=== PATIENT | female | born 1940 | race Caucasian/White ===

== ENCOUNTER 2016-09-26 10:14 | Inpatient (IN) | payer OTHER, MEDICARE ==
[~2016-09-26] VITALS: Ht 157.5 cm; Wt 91.6 kg
[~2016-09-26 10:14] MED LIST: ACIPHEX 20MG20 MG PO; ALLEGRA180 MG; AMOX-CLAV 875-1 EACH PO; AMOXICILLIN500 M2 PO; ASACOL HD800 MG PO; ASACOL400 MG PO; ATIVAN0.5 MG PO; AUGMENTIN 500-1 EACH PO; AUGMENTIN 875-1 EACH PO; AUGMENTIN 875875 MG PO; BREO ELLIPTA 21 EACH INH; BREO ELLIPTA1 PO1; BUFFERIN LOW DO81 MG PO; CALCIUM + D 6001 TAB PO; CEFUROXIME AXE250 MG PO; CEPHALEXIN500 M3 PO; CVS OMEGA-3 KR1 EACH PO; CYMBALTA60 MG PO; DOXYCYCLINE HY100 M4 PO; ESTER C PO; EXCEDRIN EXTRA1 EACH PO; HYDROXYCHLOROQ200 M2 PO; KEFLEX250 M1 PO; KEFLEX500 M1 PO; LOPRESSOR50 MG PO; METOPROLOL TART50 M1 PO; NIACIN TIME RE500 MG PO; OMEGA 31000 MG; OXYCODONE5 MG PO; PENICILLIN V P500 M1 PO; PERCOCET 325 MG1 TA2 PO; PERCOCET 5-3251 EACH PO; PREDNISONE10 M2 PO; PROBIOTIC FORMU1 CA1 PO; REQUIP1 MG PO; REQUIP4 MG PO; ROPINIROLE PO; ROSE PO; SULFAMETHOXAZO1 EAC1 PO; SYMBICORT 160/41 PUF INH; TYLENOL #31 TAB PO; VITAB121000 PO; VITAMIN D1000 UNI1 PO; VITAMIN D3400 IU PO; ZYRTEC10 M3 PO; [UNRECOGNIZED DRUG - REMARK] PO
--- NOTE | 2016-09-26 10:16 | ED GENERAL ADULT ---
History of Present Illness General Chief Complaint: Dyspnea (COPD, CHF, Other) Stated Complaint: SENT BY GEORGINA FOR EVAL OF SOB R/O PE Source: patient, family Exam Limitations: no limitations Vital Signs & Intake/Output Vital Signs & Intake/Output Vital Signs Date Time Temp Pulse Resp B/P Pulse O2 O2 Flow FiO2 Ox Delivery Rate 09/26 2015 96.2 101 18 138/82 09/26 1617 101 18 121/69 94 Nasal 2.0L Cannula 09/26 1415 96.2 84 19 122/68 94 Room Air 09/26 1220 97.6 94 19 123/66 92 Nasal 2.0L Cannula 09/26 1101 98 Nasal 2.0L Cannula 09/26 1023 95.0 94 18 119/66 96 Nasal 2.0L Cannula Allergies Coded Allergies: Iodinated Contrast Media - Oral and (Iodinated Contrast Media - IV Dye) ( Intermediate, CAT SCAN DYE RED, FLUSHING, FEELING HOT, RASH 02/28/16) lactose (LACTOSE INTOLERANT 09/26/16) Reconcile Medications Albuterol Sulfate (Proair Hfa) 90 MCG HFA.AER.AD 2 PUF INH Q4-6 PRN PRN COPD (Reported) Ascorbic Acid/Calcium (Maura-C W/Kim Hips 500 MG-100 MG) 1 TAB TAB 500 MG PO DAILY VITAMIN (Reported) Aspirin (Children's Aspirin) 81 MG TAB 1 TAB PO DAILY HEART HEALTH (Reported) Aspirin/Acetaminophen/Caffeine (Excedrin Extra Strength Caplet) 250 MG-250 MG-65 MG TABLET 2 TAB PO PRN HEADACHE (Reported) Cetirizine HCl (Zyrtec) 10 MG TABLET 1 TAB PO DAILY ALLERGIES (Reported) Cholecalciferol (Vitamin D3) (Vitamin D) 1,000 UNIT CAPSULE 1 TAB PO AD SUPPLEMENT (Reported) Cyanocobalamin (Vitamin B-12) 1,000 MCG TAB 1 TAB PO DAILY SUPPLEMENT ( Reported) Cyclobenzaprine HCl (Unknown Strength) TABLET (Unknown Dose) UNKNOWN ( Reported) DULOXETINE HCL (Cymbalta) 60 MG ECC 1 CAP PO DAILY DEPRESSION (Reported) Ferrous Sulfate (IRON) 325 MG (65 MG IRON) TABLET 1 TAB PO DAILY SUPPLEMENT ( Reported) Folic Acid 1 MG TABLET 1 TAB PO DAILY SUPPLEMENT (Reported) Krill Oil/Red [place]-3/Dha/Epa (Cvs Red [place]-3 Krill Oil 300 Sfgl) (Unknown Strength) CAPSULE (Unknown Dose) PO DAILY SUPPLEMENT (Reported) Mesalamine (Asacol Hd) 800 MG TCP 2 TAB PO TID CROHNS (Reported) Methotrexate 2.5 MG TABLET 4 TAB PO QTHURS LUPUS (Reported) Metoprolol Tartrate 50 MG TABLET 1 TAB PO DAILY HTN (Reported) Niacin (Niacin Time Release) [address] 500 MG PO DAILY HEART (Reported) Prednisone 5 MG TABLET 7.5 MG PO DAILY SKIN-LUPUS (Reported) Rabeprazole Sodium (Aciphex 20MG) 20 MG TAB 20 MG PO BID ACID REFLUX ( Reported) Ropinirole HCl (Ropinirole ER) 4 MG TAB.ER.24H 1 TAB PO QPM RESTLESS LEGS ( Reported) Triage Nurses Notes Reviewed? yes Onset: Abrupt Duration: week(s): Timing: recent history HPI: 09/26/16 11:06 76-year-old female presents to the emergency department complaining of difficulty breathing. The patient was sent down by Dr. Mayer to rule out pulmonary embolism. According to her daughter, the patient has been having difficulty breathing for 3 weeks. 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 She is also on methotrexate. She denies any fever but does admit to cough. She does have an extensive smoking history. She has no orthopnea. The onset of the symptoms were abrupt, the duration has been 3 weeks, the severity is significant; as her symptoms required her to come to the emergency department for care. Past History Travel History Traveled to [place] past 21 day No Medical History Any Pertinent Medical History? 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 Other Medical Hx: Recurrent lower extremity cellulitis varicose veins History of MRSA: No History of VRE: No History of CDIFF: No Pneumonia Vaccine: 09/21/15 Influenza Vaccine: 06/27/16 Surgical History Surgical History: appendectomy, cataract removal, knee replacement (left), right nephrectomy left oophorectomy bilateral shoulder replacements Psychosocial History Who do you live with Patient/Self Services at Home None What is your primary language Azeri Family History Family History, If Any: FATHER FH: ALS (amyotrophic lateral sclerosis) MOTHER FH: heart failure BROTHER FH: hypertension Hx Contributory? No Review of Systems Review of Systems Constitutional: Denies: fever. EENTM: Denies: visual changes. Respiratory: Reports: short of breath. Cardiovascular: Denies: chest pain. GI: Denies: abdominal pain. Genitourinary: Reports: no symptoms. Musculoskeletal: Reports: no symptoms. Skin: Reports: see HPI. Neurological/Psychological: Denies: headache. Hematologic/Endocrine: Reports: no symptoms. Physical Exam Physical Exam General Appearance: alert, awake, anxious, mild distress Head: atraumatic, normal appearance Eyes: Bilateral: normal appearance, PERRL, EOMI. Ears, Nose, Throat: normal pharynx, normal ENT inspection Neck: normal inspection, supple, full range of motion Respiratory: chest non-tender, no respiratory distress, decreased breath sounds Cardiovascular: regular rate/rhythm Peripheral Pulses: 4+ radial (R), 4+ radial (L) Gastrointestinal: soft, non-tender Back: decreased range of motion Extremities: pedal edema Neurologic/Psych: no motor/sensory deficits, awake, alert, oriented x 3 Skin: intact, normal color, warm/dry, diaphoresis Core Measures ACS in differential dx? Yes CVA/TIA Diagnosis: No Severe Sepsis Present: No Septic Shock Present: No Progress Differential Diagnoses I considered the following diagnoses in my evaluation of the patient: [Pneumonia , COPD, CHF, pulmonary embolism, acute coronary syndrome, bronchitis, asthma] CTA NEGATIVE The patient ambulates up and down the hallway and becomes profoundly short of breath. Her O2 sat drops below the 90s. She is being admitted to general medicine for dyspnea and likely COPD. She will need albuterol nebulizers every 4 hours, IV steroids, consider pulmonary consultation Plan of Care: Orders Procedure Date/time Status Heart Healthy Diet 09/27 B Active CBC WITHOUT DIFFERENTIAL 09/27 599 Active BASIC ELECTROLYTES PLUS BUN&CR 09/27 599 Active Pathway - chart 09/26 1922 Active House Staff 09/26 1922 Active Code Status 09/26 1922 Active Patient Data 09/26 1812 Active Admit to inpatient 09/26 1717 Active Vital Signs 09/26 1717 Active Code Status 09/26 1717 Complete Intake & Output 09/26 1539 Active Add-on Test (ER Only) 09/26 1114 Active B-TYPE NATRIURETIC PEP (BNP) 09/26 1053 Complete TROPONIN LEVEL 09/26 1039 Complete PROTHROMBIN TIME 09/26 1039 Complete D-DIMER 09/26 1039 Complete COMPREHENSIVE METABOLIC PANEL 09/26 1039 Complete CBC WITHOUT DIFFERENTIAL 09/26 1039 Complete EKG 09/26 1016 Active TRC EVALUATION (GEN) 09/26 UNK Active PT Evaluate & Treat 09/26 UNK Active VTE Mechanical Prophylaxis 09/26 UNK Active Current Medications Sig/Cherry Start time Last Medication Dose Stop Time Status Admin Ferrous Sulfate 325 MG DAILY 09/27 1000 AC (Feosol) Fish Oil 1,050 MG DAILY 09/27 1000 AC ([place]-3) Folic Acid 1 MG DAILY 09/27 1000 AC (Folic Acid) Nicotinic Acid 500 MG DAILY 09/27 1000 AC (Niacin 500MG Tab) Heparin Sodium 5,000 UNIT Q8 09/26 2200 AC (Porcine) Mesalamine 1,600 MG TID 09/26 2200 AC (Delzicol) Albuterol Sulfate 2 PUF Q4 PRN 09/26 2045 AC (Ventolin) Ipratropium Zullinger 2.5 ML Q8 PRN 09/26 204 AC (Atrovent) Albuterol Sulfate 2 PUF Q4-6 PRN PRN 09/26 1930 AC (Ventolin) Laboratory Tests 09/26/16 1053: Anion Gap 17 H, Estimated GFR > 60, BUN/Creatinine Ratio 27.8 H, Glucose 136 H, Calcium 10.5 H, Total Bilirubin 0.9, AST 24, ALT 36, Alkaline Phosphatase 75 , Troponin I < 0.01, Gpr-E-Obnsspgmxmd Pept 106, Total Protein 7.0, Albumin 4.1, Globulin 2.9, Albumin/Globulin Ratio 1.4, PT 12.3, INR 1.17, D-Dimer 432 H, CBC w Diff MAN DIFF ORDERED, RBC 5.03, MCV 93.2, MCH 31.7 H, RDW 17.2 H, MPV 9.1, Gran % 84.6 H, Lymphocytes % 4.1 L, Monocytes % 11.0 H, Eosinophils % 0.1, Basophils % 0.2, Absolute Granulocytes 16.9 H, Absolute Lymphocytes 0.8 L, Absolute Monocytes 2.2 H, Absolute Eosinophils 0, Absolute Basophils 0, Platelet Estimate ADEQUATE, Normocytic RBCs VERIFIED, Normochromic RBCs VERIFIED , PUBS MCHC 34.0 Initial ED EKG: NSR, LVH Departure Departure Disposition: STILL A PATIENT Condition: Stable Clinical Impression Primary Impression: Dyspnea Secondary Impressions: COPD (chronic obstructive pulmonary disease) Referrals: PHIL PHILIP MD (PCP/Family) Departure Forms: Customer Survey General Discharge Information Comments 09/27/16 11:15 AM Chest x-ray done yesterday revealed peribronchial thickening. Results below: IMPRESSION: No dense consolidation. Bronchial wall thickening can be seen with a small airways process such as asthma or atypical/viral infection. DICTATED BY: PADILLA FALL MD DATE/TIME DICTATED:09/26/16524 INTERIOR HORTICULTURIST:BEN DATE/TIME TRANSCRIBED:09/26/16524 CONFIDENTIAL, DO NOT COPY WITHOUT APPROPRIATE AUTHORIZATION. <Electronically signed in Other Vendor System> SIGNED BY: PADILLA FALL MD 09/26 0944 Admission Note Spoke With: LOUIS CALLAHAN MD Documentation of Exam: Documentation of any treatments & extenuating circumstances including Concerns Regarding Discharge (functional status, medication knowledge or non-compliance, living conditions, etc.) that warrant an admission rather than observation: [ Patient needs admission for nebulizers, oxygen, consider pulmonary consultation. ] Critical Care Note Critical Care Note Critical Care Time: non-applicable
--- NOTE | 2016-09-26 10:24 | NUR ---
76 Y/O FEMALE SENT FROM DR ERICKSON'S OFFICE FOR EVAL OF SOB X 2 WEEKS; PT REPORTS EXERTIONAL SOB, WORSE WITH ANY TYPE OF ACTIVITY. DENIES SOB AT REST. DENIES CHEST PAIN. REPORTS INTERMITTENT COUGH WITH CLEAR MUCOUS. RA SAT 87% RA, UP TO 96% ON 2L. PT STATES SHE HAD BLOODWORK AND CHEST XRAY AT [facility] YESTERDAY. EKG IN PROGRESS.
--- NOTE | 2016-09-26 10:52 | NUR ---
PT TO ER ROOM 12. IV EST. AWAITING MD TURNER
[2016-09-26 11:07] LABS: ABSOLUTE BASOPHIL COUNT 0 /CUMM (0.0-0.2); ABSOLUTE EOSINOPHIL COUNT 0 /CUMM (0.0-0.7); ABSOLUTE GRANULOCYTE CT 16.9 /CUMM (1.4-6.5); ABSOLUTE LYMPH COUNT 0.8 /CUMM (1.2-3.4); ABSOLUTE MONOCYTE COUNT 2.2 /CUMM (0.10-0.60); BASOPHIL % 0.2 % (0.0-2.0); EOSINOPHIL % 0.1 % (0-5); GRANULOCYTE % 84.6 % (42.2-75.2); HEMATOCRIT 46.9 % (37-47); MEAN CORPUSCULAR HGB 31.7 PG (27.0-31.0); MEAN CORPUSCULAR VOLUME 93.2 FL (81.0-99.0); MEAN PLATELET VOLUME 9.1 FL (7.4-10.4); PLATELET COUNT 385 /CUMM (130-400); RBC DISTRIBUTION WIDTH 17.2 % (11.5-14.5); RED BLOOD CELL CT 5.03 /CUMM (4.20-5.40); WHITE BLOOD CELL COUNT 19.9 /CUMM (4.8-10.8)
[2016-09-26 11:10] LABS: PT 12.3 SEC (9.4-12.5)
[2016-09-26] MEDS ORDERED: ANORO ELLIPTA1 EACH INH (12:15)
[2016-09-26] MEDS ORDERED: PREDNISONE5 M1 PO (12:17)
[2016-09-26] MEDS ORDERED: PROAIR HFA8.5 GM INH (12:18)
[2016-09-26] MEDS ORDERED: METHOTREXATE2.5 M2 PO (12:18)
[2016-09-26] MEDS ORDERED: CYCLOBENZAPRINE10 M1 (12:19)
[2016-09-26] MEDS ORDERED: FOLIC ACID1 M1 PO (12:20)
[2016-09-26] MEDS ORDERED: IRON325 M3 PO (12:21)
--- NOTE | 2016-09-26 13:28 | NUR ---
PT PREMEDICATED WITH SOLUMEDROL AND BENADRYL PER EMAR FOR CTA.
--- NOTE | 2016-09-26 14:27 | NUR ---
PT TO CAT SCAN BY STRETCHER.
--- NOTE | 2016-09-26 15:03 | CT SCAN REPORT ---
EXAMINATION: CT ANGIOGRAM OF THE CHEST WITH AND WITHOUT CONTRAST (CT PULMONARY ANGIOGRAM FOR PE) CLINICAL INFORMATION: Shortness of breath. Elevated d-dimer. COMPARISON: CT chest without contrast 08/15/2015. TECHNIQUE: Prior to contrast administration, noncontrast localization images were obtained. Subsequently, multidetector volumetric imaging was performed from the thoracic inlet to below the diaphragms following the administration of 125 mL Optiray 350 intravenous contrast. No adverse contrast reaction reported. Sagittal, coronal, and MIP oblique sagittal reformatted images were obtained on the CT workstation, uploaded to PACS, and reviewed. Total exam dose-length product 541 mGy-cm FINDINGS: QUALITY OF STUDY/CONTRAST BOLUS: Adequate contrast opacification of the pulmonary arterial vasculature. PULMONARY ARTERIES: No evidence of pulmonary embolism to the level of the subsegmental pulmonary arteries. No large central pulmonary emboli. THORACIC AORTA: Normal caliber of the thoracic aorta. No centrally displaced intraluminal flaps to suggest aortic dissection. LUNG: Evaluation of the lung parenchyma demonstrates pulmonary hypoinflation. Diffuse hazy airspace opacities throughout the bilateral lungs are favored to represent atelectasis given pulmonary hypoventilation. There is minimal scarring/atelectasis along the periphery of the right middle lobe. PLEURA: No pleural effusions or pneumothoraces. MEDIASTINUM: Normal heart size, without significant pericardial effusion. Normal three-vessel branching of the aortic arch. Normal caliber of the thoracic aorta and central pulmonary artery. No significant mediastinal, hilar or axillary adenopathy. Bilateral hypoattenuating nodules within the right and left thyroid lobes, visualized measuring approximately 1.2 cm on the left and 1.5 cm on the right. No evidence of septal bowing or right heart strain. CHEST WALL/AXILLA: No axillary or internal mammary lymphadenopathy. OSSEOUS STRUCTURES: No acute or suspicious osseous abnormality. Mechanical hardware related to bilateral shoulder arthroplasties. UPPER ABDOMEN: Evaluation of the upper abdomen is notable for a moderate sized hiatal hernia. No reflux of contrast into the hepatic veins to suggest elevated right heart pressures. IMPRESSION: Adequate contrast opacification of the pulmonary arterial vasculature, without evidence of pulmonary embolism. The lungs are hypoinflated. There is no airspace consolidation to suggest infection. Incidental note is made of hypoattenuating nodules within the bilateral thyroid lobes, as described above. A nonemergent, outpatient thyroid ultrasound may be obtained for further evaluation. VTE: Negative.
--- NOTE | 2016-09-26 15:27 | NUR ---
PT CARE ASSUMED BY THIS RN AT THIS TIME. DR. PRESCOTT TO BEDSIDE TO DISCUSS RESULTS.
--- NOTE | 2016-09-26 15:41 | NUR ---
RESPIRATORY CALLED FOR DUONEB.
--- NOTE | 2016-09-26 17:04 | NUR ---
PT AMBULATORY OXYGEN SATURATION ON RA 90%, PT C/O CINTRON. DR. PRESCOTT MADE AWARE.
--- NOTE | 2016-09-26 17:25 | NUR ---
DINNER TRAY ORDERED.
--- NOTE | 2016-09-26 18:15 | History & Physical ---
ANNALEE HUFF,LOYD 09/26/16 2745: General Information and HPI History of Present Illness: Ms. 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 Patient states that her shortness of breath initially began prior to her admission in July, especially with exertion. As per patient she has been diagnosed with a "mild COPD" by her PCP Dr. Philip. Since then she has been using Breo but her dyspnea persisted; patient was started on ventolin instead without much improvement. Of note, patient was also recently diagnosed with SLE for which patient has been on steroid taper over the past couple of months. She is currently taking prednisone 7.5mg daily at home. In addition patient is on MTX 10mg weekly. On social history patient lives alone at home, fully independent with daily activities. She uses a walker to ambulate. She is a chronic/active smoker. Denies alcohol/substances use. PCP - Dr. Philip Arts Education Teacher - Dr. Sevilla Full code. Allergies/Medications Allergies: Coded Allergies: Iodinated Contrast Media - Oral and (Iodinated Contrast Media - IV Dye) ( Intermediate, CAT SCAN DYE RED, FLUSHING, FEELING HOT, RASH 02/28/16) lactose (LACTOSE INTOLERANT 09/26/16) Home Med list Albuterol Sulfate (Proair Hfa) 90 MCG HFA.AER.AD 2 PUF INH Q4-6 PRN PRN COPD (Reported) Ascorbic Acid/Calcium (Marua-C W/Kim Hips 500 MG-100 MG) 1 TAB TAB 500 MG PO DAILY VITAMIN (Reported) Aspirin (Children's Aspirin) 81 MG TAB 1 TAB PO DAILY HEART HEALTH (Reported) Aspirin/Acetaminophen/Caffeine (Excedrin Extra Strength Caplet) 250 MG-250 MG-65 MG TABLET 2 TAB PO PRN HEADACHE (Reported) Cetirizine HCl (Zyrtec) 10 MG TABLET 1 TAB PO DAILY ALLERGIES (Reported) Cholecalciferol (Vitamin D3) (Vitamin D) 1,000 UNIT CAPSULE 1 TAB PO AD SUPPLEMENT (Reported) Cyanocobalamin (Vitamin B-12) 1,000 MCG TAB 1 TAB PO DAILY SUPPLEMENT ( Reported) Cyclobenzaprine HCl (Unknown Strength) TABLET (Unknown Dose) UNKNOWN ( Reported) DULOXETINE HCL (Cymbalta) 60 MG ECC 1 CAP PO DAILY DEPRESSION (Reported) Ferrous Sulfate (IRON) 325 MG (65 MG IRON) TABLET 1 TAB PO DAILY SUPPLEMENT ( Reported) Folic Acid 1 MG TABLET 1 TAB PO DAILY SUPPLEMENT (Reported) Krill Oil/[place]-3/Dha/Epa ([facility]vs [place]-3 Krill Oil 300 Sfgl) (Unknown Strength) CAPSULE (Unknown Dose) PO DAILY SUPPLEMENT (Reported) Mesalamine (Asacol Hd) 800 MG TCP 2 TAB PO TID CROHNS (Reported) Methotrexate 2.5 MG TABLET 4 TAB PO QTHURS LUPUS (Reported) Metoprolol Tartrate 50 MG TABLET 1 TAB PO DAILY HTN (Reported) Niacin (Niacin Time Release) [address] 500 MG PO DAILY HEART (Reported) Prednisone 5 MG TABLET 7.5 MG PO DAILY SKIN-LUPUS (Reported) Rabeprazole Sodium (Aciphex 20MG) 20 MG TAB 20 MG PO BID ACID REFLUX ( Reported) Ropinirole HCl (Ropinirole ER) 4 MG TAB.ER.24H 1 TAB PO QPM RESTLESS LEGS ( Reported) Past History Travel History Traveled to [place] past 21 day No Medical History Neurological: migraine, restless leg syndrome EENT: allergies Cardiovascular: CAD, hyperlipidemia, NSTEMI (2 YEARS AGO) Respiratory: COPD, obstructive sleep apnea, HAS CPAP Gastrointestinal: Crohn's disease, diverticulitis, GERD, lactose intolerance Renal: nephrectomy (right) Musculoskeletal: osteoarthritis, SPONDYLOLISTHESIS BONE SPUR- R HEEL R KNEE TORN MENISCUS Psychiatric: anxiety, depression Endocrine: NONE Blood Disorders: NONE Cancer(s): renal cancer 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 self Services at Home: None Primary Language: Sudanese Living Will? yes Functional Ability ADLs Independent: dressing, eating, toileting, bathing. Ambulation: cane IADLs Independent: shopping, housework, finances, food prep, telephone, transportation , medication admin. Review of Systems Review of Systems Constitutional: Reports: see HPI. Exam & Diagnostic Data Last 24 Hrs of Vital Signs/I&O Vital Signs Date Time Temp Pulse Resp B/P Pulse O2 O2 Flow FiO2 Ox Delivery Rate 09/26 2206 Nasal 3.0L Cannula 09/26 2015 96.2 101 18 138/82 09/26 1617 101 18 121/69 94 Nasal 2.0L Cannula 09/26 1415 96.2 84 19 122/68 94 Room Air 09/26 1220 97.6 94 19 123/66 92 Nasal 2.0L Cannula 09/26 1101 98 Nasal 2.0L Cannula 09/26 1023 95.0 94 18 119/66 96 Nasal 2.0L Cannula Intake & Output 09/26 1600 09/26 0800 09/26 0000 Intake Total Output Total Balance Patient 91.626 kg Weight Physical Exam General Appearance Alert, Oriented X3, Cooperative, No Acute Distress Skin No Rashes, No Breakdown, No Significant Lesion HEENT Atraumatic, PERRLA, EOMI, Mucous Membr. moist/pink Neck Supple, No JVD, No LAD Cardiovascular Regular Rate, Normal S1, Normal S2, No Murmurs, Gallops, Rubs Lungs Clear to Auscultation, Normal Air Movement Abdomen Normal Bowel Sounds, Soft, No Tenderness Neurological Normal Speech, Sensation Intact Extremities No Clubbing, No Cyanosis, No Edema, Normal Pulses, No Tenderness/ Swelling Vascular Normal Pulses, Pulses Symmetrical Last 24 Hrs of Labs/Marco: Laboratory Tests 09/26/16 1053: Anion Gap 17 H, Estimated GFR > 60, BUN/Creatinine Ratio 27.8 H, Glucose 136 H, Calcium 10.5 H, Total Bilirubin 0.9, AST 24, ALT 36, Alkaline Phosphatase 75 , Troponin I < 0.01, Itj-M-Wudmqeekddu Pept 106, Total Protein 7.0, Albumin 4.1, Globulin 2.9, Albumin/Globulin Ratio 1.4, PT 12.3, INR 1.17, D-Dimer 432 H, CBC w Diff MAN DIFF ORDERED, RBC 5.03, MCV 93.2, MCH 31.7 H, RDW 17.2 H, MPV 9.1, Gran % 84.6 H, Lymphocytes % 4.1 L, Monocytes % 11.0 H, Eosinophils % 0.1, Basophils % 0.2, Absolute Granulocytes 16.9 H, Absolute Lymphocytes 0.8 L, Absolute Monocytes 2.2 H, Absolute Eosinophils 0, Absolute Basophils 0, Platelet Estimate ADEQUATE, Normocytic RBCs VERIFIED, Normochromic RBCs VERIFIED , PUBS MCHC 34.0 Assessment/Plan Assessment: Ms. Garcia is a 75 year-old lady, active smoker (1 PPD) with a past medical history significant for COPD not on home oxygen, CAD, HLD, SLE on MTX and prednisone, Chron's disease on Asacol, varicose veins, anxiety, renal cancer status post nephrectomy and recurrent cellulitis of bilateral lower extremities, who presents with progressively worsening dyspnea, most likely 2/2 COPD exacerbation. # COPD exacerbation PE ruled out on CTA chest. No evidence of pneumonia. Patient has leukocytosis but probably 2/2 steroid use. She has no signs of infection otherwise. Normal EKG with no acute ST or T wave changes. * Admit to general medicine floor * TRC nebulizer treatment as needed * Oxygen support to maintain staturation above 92% * Monitor for signs of infection * Cont home meds Atrovent and Ventolin #Coronary artery disease * Continue metoprolol and aspirin at home doses #Hyperlipidemia * Cont home dosage of Niacin #Inflammatory bowel disease * Continue Asacol #GERD * Continue PPI #Anxiety/depression * Continue home dosage of duloxetine - Diet: Regular diet - Pain pathway: Mild - DVT prophylaxis: SQ heparin - Code: Full As Ranked By This Provider Problem List: 1. Crohns disease 2. DVT prophylaxis 3. Depression 4. Leukocytosis 5. COPD (chronic obstructive pulmonary disease) 6. CAD (coronary artery disease) 7. HLD (hyperlipidemia) 8. KUSH (obstructive sleep apnea) 9. SLE (systemic lupus erythematosus) 10. Anxiety 11. Dyspnea 12. COPD (chronic obstructive pulmonary disease) case management patient Core Measures/Miscellaneous Acute Coronary Syndrome ACS Diagnosis: No Cerebrovascular Accident CVA/TIA Diagnosis: No Congestive Heart Failure CHF Diagnosis: No Venous Thromboembolism VTE Risk Factors: Acute medical illness, Age > 40, Obesity, Smoking VTE Prophylaxis Ordered Inpt: Pharm- Heparin No Mech VTE prophylaxis d/t: No contraindications No VTE Pharm Prophylaxis d/t: No contraindications VTE Diagnosis: No VTE Type: NONE VTE Confirmed by (Test): NONE Severe Sepsis Severe Sepsis Present: No Septic Shock Septic Shock Present: No Miscellaneous Documentation Attending Case Discussed With: LOUIS CALLAHAN MD Primary Care Physician: PHIL PHILIP MD Patient sees these Specialists Arts Education Teacher Level of Patient Care: General Medicine ANTONIETTA WARREN 09/26/16 1900: Resident Review Statement Resident Statement: examined this patient, discussed with internet security specialist, agreed with internet security specialist, discussed with family, reviewed EMR data (avail), discussed with nursing , discussed with case mgmt, reviewed images, amended to note Other Findings: 75 y/o F with PMHx of MIld-moderate COPD recently was started on Albuterol rescue, Crohn's disease, renal cancer s/p nephrectomy and recurrent cellulitis of bilateral lower extremities, cutaneous lupus-associated casculitis teppered off prednisone very recently was sent to the ED by her butter maker Dr augustin for worsening dyspnea of 2-3 weeks. Patietnt reports concommitent cough and sputum production for the past week denies any fever, chills, recent travel or sick contactm. Her sputum is white/ without blood and tea-spoon. Patient lives alone, uses cane and is not a very active person but mentined that her exercise tolerance has gradually deminished along with her worsening dyspnea. PH/EX: No wheeze, lungs are clear. CVS: S1S2 no murmur. No JVD and no LAD, NO peripheral edema. Pertinenet data Elevated wells score. DD: 432 CTA was negative for PE and highlighted thyroid nodules that needs to be followed as an out patient. WBC: 19.9 with left shift DD:432 BUN:25 Cr:0.9 EKG: NSRR, 100, 121/60, on 2 lit N/C Assessment 75 years old woman with multiple comorbidities was admitted for decreased exercise tolerance and increased inhaler need. 1) Dyspnea on exertion: the cause of her dyspnea could be exacerbation of her COPD exacerbation, although CT scan shows hypoinflation that goes against COPD. No finding of pneumonia, wbc, most likely due to dehydration and steroid. Cardiac causes for dyspnea are plausible: she has a normal EKG with no acute ST T seg change. PE is in the list considering her high well's score and tachycardia, which was ruled out. * admit to gm * watch off Abx * if spiked fever blood Cx and start IC cefteriaxone and IV Azithro for CAP * TRC/ Neb round the clock as needed * Mild COPD will need as need albuterol and or short acting antimuscarinic agent * Check troponin 2)dehydration * encourage PO fluid intake * one bag of normal saline * repeat labs in the am 3) crohn's diseas * stable; continue mesalamine Full code SQ heparin 5000u Q8 SHERRON HUFF, SITALAKSH 09/26/163: Attending MD Review Statement Attending Statement Attending MD Statement: examined this patient, discuss w/resident/PA/COST RECOVERY TECHNICIAN, agreed w/resident/PA/COST RECOVERY TECHNICIAN Attending Assessment/Plan: 75 yo F with h/o Crohn's disease, renal cancer s/p nephrectomy, mild COPD on breo-ellipta recently changed to Anoro-ellipta and PRN albuterol, last admitted to [facility] (Jun 2016) for cutaneous small vessel vasculitis/SLE on prednisone taper and methotrexate (was on plaquenil), is here for evaluation of worsening dyspnea on exertion for over 3 weeks. 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 Received flu and pneumonia vaccines. No recent travel or sick contacts. She is not wheezing, able to move air and does not appear to be in COPD exacerbation. Sats were in low 90's on RA. No PE or pneumonia on CTA. No CHF. I will continue her TRC nebs, give IST and continue her steroid taper per Dr. Sevilla for vasculitis (7.5 mg daily for 2 weeks since Sep 18, thereafter 5 mg daily). No need for IV steroids. Serial EKG and troponin, obtain Echo, Cardio and Pulm consults in AM. Previous cardiac work up was negative per patient 3 yrs ago. Please note, there is incidental finding of hypoattenuating nodules within bilateral thyroid lobes, we will check TSH and free T4. Consider outpatient thyroid ultrasound and Endo consult. DVT ppx Hep SC. Full code.
--- NOTE | 2016-09-26 18:37 | NUR ---
HOUSE STAFF TO BEDSIDE FOR EVAL.
--- NOTE | 2016-09-26 19:24 | NUR ---
PT HAS BED ASSIGNMENT 211
--- NOTE | 2016-09-26 20:24 | NUR ---
PT MEDICATED PER EMAR. REPORT GIVEN TO RN. DISTRIBUTION TO BEDSIDE TO TRANSPORT PT.
[2016-09-26 23:59] VITALS: BP 144/80
--- NOTE | 2016-09-27 07:29 | PN- Housestaff ---
Subjective Follow-up For: COPD exacerbation Subjective: Patient seen and examined at bedside. Patient reports her dyspnea improving a little bit. No new complaints. No events reported overnight. Denies headache, fever, chills, chest pain, palpitations, nausea, vomiting, diarrhea, blurred/ double vision, dizziness/lightheadedness. Review of Systems Constitutional: Reports: see HPI. Objective Last 24 Hrs of Vital Signs/I&O Vital Signs Date Time Temp Pulse Resp B/P Pulse O2 O2 Flow FiO2 Ox Delivery Rate 09/27 08 96 Nasal 3.0L Cannula 09/27 08 97.9 83 20 136/80 93 Nasal 3.0L Cannula 09/26 2359 97.8 84 19 144/80 97 Nasal 3.0L Cannula 09/267 Nasal 3.0L Cannula 09/26 2015 96.2 101 18 138/82 09/26 1617 101 18 121/69 94 Nasal 2.0L Cannula 09/26 1415 96.2 84 19 122/68 94 Room Air 09/26 1220 97.6 94 19 123/66 92 Nasal 2.0L Cannula 09/26 1101 98 Nasal 2.0L Cannula 09/26 1023 95.0 94 18 119/66 96 Nasal 2.0L Cannula Physical Exam General Appearance: Alert, Oriented X3, Cooperative, No Acute Distress Other Physical Findings: Skin No Rashes, No Breakdown, No Significant Lesion HEENT Atraumatic, PERRLA, EOMI, Mucous Membr. moist/pink Neck Supple, No JVD, No LAD Cardiovascular Regular Rate, Normal S1, Normal S2, No Murmurs, Gallops, Rubs Lungs Clear to Auscultation, Normal Air Movement Abdomen Normal Bowel Sounds, Soft, No Tenderness Neurological Normal Speech, Sensation Intact Extremities No Clubbing, No Cyanosis, No Edema, Normal Pulses, No Tenderness Current Medications: Current Medications Sig/Cherry Start time Last Medication Dose Route Stop Time Status Admin Albuterol Sulfate 3 ML BID 09/27 1000 AC 09/27 INH 0810 Albuterol Sulfate 2 PUF Q4 PRN 09/26 204 AC INH Albuterol Sulfate 2 PUF Q4-6 PRN PRN 09/26 1930 AC INH Albuterol Sulfate 3 ML ONCE ONE 09/26 1615 DC 09/26 INH 09/26 1616 1741 Albuterol Sulfate 3 ML ONCE ONE 09/26 1545 DC 09/26 INH 09/26 1546 1551 Aspirin 0 .STK-MED ONE 09/26 2012 DC PO Aspirin 81 MG DAILY 09/26 192 AC 09/26 PO 2016 Diphenhydramine HCl 0 .STK-MED ONE 09/26 1311 DC .ROUTE Diphenhydramine HCl 25 MG ONCE ONE 09/26 1300 DC 09/26 IV 09/26 1301 1328 Duloxetine HCl 60 MG DAILY 09/26 1925 AC 09/26 PO 2016 Ferrous Sulfate 325 MG DAILY 09/27 1000 AC PO Fish Oil 1,050 MG DAILY 09/27 1000 AC PO Folic Acid 1 MG DAILY 09/27 1000 AC PO Heparin Sodium 5,000 UNIT Q8 09/26 2200 AC 09/27 (Porcine) SC 0655 Ipratropium Mccamey 2.5 ML Q8 PRN 09/26 2045 AC INH Ipratropium Mccamey 2.5 ML ONCE ONE 09/26 1615 DC 09/26 INH 09/26 1616 1741 Ipratropium Mccamey 2.5 ML ONCE ONE 09/26 1545 DC 09/26 INH 09/26 1546 1551 Mesalamine 1,600 MG TID 09/260 AC 09/26 PO 2238 Methotrexate 2.5 MG QTHURS 10/02 1000 AC PO Methylprednisolone 0 .STK-MED ONE 09/26 1311 DC .ROUTE Methylprednisolone 125 MG ONCE ONE 09/26 1300 DC 09/26 IV 09/26 1301 1328 Metoprolol Tartrate 0 .STK-MED ONE 09/26 2012 DC PO Metoprolol Tartrate 50 MG DAILY 09/26 192 DC 09/26 PO 2016 Nicotinic Acid 500 MG DAILY 09/27 1000 AC PO Patient Medication 1 UNIT ONE NR 09/26 1945 DC Teaching ED 09/26 1999 Patient Medication 1 UNIT ONE NR 09/26 194 TX Teaching ED 09/26 1999 Prednisone 7.5 MG DAILY 09/27 1000 AC PO Ropinirole HCl 4 MG AT BEDTIME 09/27 2199 DC PO Ropinirole HCl 4 MG AT BEDTIME 09/27 0045 AC 09/27 PO 0107 Sodium Chloride 1,000 ML ONCE ONE 09/260 DC 09/26 IV 09/27 0559 2223 Last 24 Hrs of Lab/Marco Results Last 24 Hrs of Labs/Mics: Laboratory Tests 09/27/16 0646: Anion Gap 15, Estimated GFR > 60, BUN/Creatinine Ratio 24.4, Troponin I < 0.01, CBC w Diff NO MAN DIFF REQ, RBC 4.84, MCV 93.1, MCH 31.6 H, RDW 16.7 H, MPV 8.9, Gran % 95.8 H, Lymphocytes % 1.9 L, Monocytes % 2.3, Eosinophils % 0, Basophils % 0 L, Absolute Granulocytes 21.3 H, Absolute Lymphocytes 0.4 L, Absolute Monocytes 0.5, Absolute Eosinophils 0, Absolute Basophils 0, PUBS MCHC 34.0 09/27/16 0050: Troponin I < 0.01 09/27/16 0050: TSH 0.155 L, Free T4 1.51 09/26/16 1053: Anion Gap 17 H, Estimated GFR > 60, BUN/Creatinine Ratio 27.8 H, Glucose 136 H, Calcium 10.5 H, Total Bilirubin 0.9, AST 24, ALT 36, Alkaline Phosphatase 75 , Troponin I < 0.01, Ifa-T-Ablvmnjrtfi Pept 106, Total Protein 7.0, Albumin 4.1, Globulin 2.9, Albumin/Globulin Ratio 1.4, PT 12.3, INR 1.17, D-Dimer 432 H, CBC w Diff MAN DIFF ORDERED, RBC 5.03, MCV 93.2, MCH 31.7 H, RDW 17.2 H, MPV 9.1, Gran % 84.6 H, Lymphocytes % 4.1 L, Monocytes % 11.0 H, Eosinophils % 0.1, Basophils % 0.2, Absolute Granulocytes 16.9 H, Absolute Lymphocytes 0.8 L, Absolute Monocytes 2.2 H, Absolute Eosinophils 0, Absolute Basophils 0, Platelet Estimate ADEQUATE, Normocytic RBCs VERIFIED, Normochromic RBCs VERIFIED , PUBS MCHC 34.0 Assessment/Plan Assessment: Ms. Garcia is a 75 year-old lady, active smoker (1 PPD) with a past medical history significant for COPD not on home oxygen, CAD, HLD, SLE on MTX and prednisone, Chron's disease on Asacol, varicose veins, anxiety, renal cancer status post nephrectomy and recurrent cellulitis of bilateral lower extremities, who presents with progressively worsening dyspnea, most likely 2/2 COPD exacerbation. # COPD exacerbation PE ruled out on CTA chest. No evidence of pneumonia. Patient has leukocytosis but probably 2/2 steroid use. She has no signs of infection otherwise. Normal EKG with no acute ST or T wave changes. * Cont home med prednisone 7.5mg PO QD * TRC nebulizer treatment as needed * Oxygen support to maintain staturation above 92% * Monitor for signs of infection * Cont home meds Atrovent and Ventolin #Coronary artery disease * Continue metoprolol and aspirin at home doses #Hyperlipidemia * Cont home dosage of Niacin #Inflammatory bowel disease * Continue Asacol #GERD * Continue PPI #Anxiety/depression * Continue home dosage of duloxetine - Diet: Regular diet - Pain pathway: Mild - DVT prophylaxis: SQ heparin - Code: Full Problem List: 1. Cellulitis 2. COPD (chronic obstructive pulmonary disease) case management patient 3. Dyspnea 4. SLE (systemic lupus erythematosus) 5. Anxiety 6. GERD (gastroesophageal reflux disease) Pain Ratin Pain Location: 0 Pain Goal: Remain pain free Pain Plan: Mild pathway Tomorrow's Labs & Rationales: CBC to monitor for infection
--- NOTE | 2016-09-27 07:36 | Admission Certification ---
Admission Certification Certification Statement - As attending physician, I certify that at the time of - admission, based on clinical presentation, severity of - symptoms, need for further diagnostic testing and - therapeutic interventions, and risk of adverse outcomes - without in-hospital treatment, in my clinical assessment, - this patient requires an acute hospital stay for a minimum - of two nights or longer. I have also considered psychsocial - factors such as support system, advanced age, financial - issues, cognitive issues, and failed out-patient treatments, - past re-admission history, safety of patient, and lack of - compliance as applicable. Specific rationale supporting this admission is: Dyspnea on exertion, hypoxia, needs further evaluation.
[2016-09-27 08:05] VITALS: BP 136/80
[2016-09-27 08:14] LABS: ABSOLUTE BASOPHIL COUNT 0 /CUMM (0.0-0.2); ABSOLUTE EOSINOPHIL COUNT 0 /CUMM (0.0-0.7); ABSOLUTE GRANULOCYTE CT 21.3 /CUMM (1.4-6.5); ABSOLUTE LYMPH COUNT 0.4 /CUMM (1.2-3.4); ABSOLUTE MONOCYTE COUNT 0.5 /CUMM (0.10-0.60); BASOPHIL % 0 % (0.0-2.0); EOSINOPHIL % 0 % (0-5); MEAN CORPUSCULAR HGB 31.6 PG (27.0-31.0); MEAN CORPUSCULAR VOLUME 93.1 FL (81.0-99.0); MEAN PLATELET VOLUME 8.9 FL (7.4-10.4); PLATELET COUNT 441 /CUMM (130-400); RBC DISTRIBUTION WIDTH 16.7 % (11.5-14.5); RED BLOOD CELL CT 4.84 /CUMM (4.20-5.40); WHITE BLOOD CELL COUNT 22.3 /CUMM (4.8-10.8)
[2016-09-27 09:08] LABS: GRANULOCYTE % 95.8 % (42.2-75.2)
--- NOTE | 2016-09-27 14:59 | PN- Att Addend ---
Attending Addendum Attending Brief Note Patient seen and examined. Plan of care discussed with the medical team and the patient. Available lab work and radiology test reports were reviewed. Patient is sitting in bed comfortably. She denies any dyspnea at rest however complains of dyspnea on exertion. She continues to have cough with scant sputum production. No fevers reported. Vital Signs Date Time Temp Pulse Resp B/P Pulse O2 O2 Flow FiO2 Ox Delivery Rate 09/27 811 96 Nasal 3.0L Cannula 09/27 08 97.9 83 20 136/80 93 Nasal 3.0L Cannula 09/27 799 97 Nasal 3.0L Cannula 09/26 2359 97.8 84 19 144/80 97 Nasal 3.0L Cannula 09/26 2300 94 Nasal 3.0L Cannula 09/26 2206 Nasal 3.0L Cannula 09/26 2015 96.2 101 18 138/82 09/26 1617 101 18 121/69 94 Nasal 2.0L Cannula Intake & Output 09/27 1600 09/27 0809/27 0000 Intake Total 720 120 Output Total 350 400 Balance 720 -350 -280 Intake, Oral 720 120 Number 1 0 Bowel Movements Output, Urine 350 400 Patient 202 lb 202 lb Weight Exam: General: Patient awake alert oriented without any distress CVS: S1 plus S2 without any murmur or gallops Chest: Few scattered crepitation without any wheeze. There is no respiratory distress. Abdomen: Soft nontender, bowel sound present, no guarding or rebound [employer] OFF[employer]ER: Awake alert oriented without any focal neuro deficit and follows command appropriately Extremities: No edema; no clubbing or cyanosis noted Laboratory Tests 09/27 09/27 09/27 0646 0050 0050 Chemistry Sodium (137 - 145 mmol/L) 137 Potassium (3.5 - 5.1 mmol/L) 4.5 Chloride (98 - 107 mmol/L) 100 Carbon Dioxide (22 - 30 mmol/L) 22 Anion Gap (5 - 16) 15 BUN (7 - 17 mg/dL) 22 H Creatinine (0.5 - 1.0 mg/dL) 0.9 Estimated GFR (>60 ml/min) > 60 BUN/Creatinine Ratio (7 - 25 %) 24.4 Troponin I (< 0.11 ng/ml) < 0.01 < 0.01 TSH (0.270 - 4.200 uIU/mL) 0.155 L Free T4 (0.78 - 2.44 ng/dL) 1.51 Hematology CBC w Diff NO MAN DIFF REQ WBC (4.8 - 10.8 /CUMM) 22.3 H RBC (4.20 - 5.40 /CUMM) 4.84 Hgb (12.0 - 16.0 G/DL) 15.3 Hct (37 - 47 %) 45.0 MCV (81.0 - 99.0 FL) 93.1 MCH (27.0 - 31.0 PG) 31.6 H RDW (11.5 - 14.5 %) 16.7 H Plt Count (130 - 400 /CUMM) 441 H MPV (7.4 - 10.4 FL) 8.9 Gran % (42.2 - 75.2 %) 95.8 H Lymphocytes % (20.5 - 51.1 %) 1.9 L Monocytes % (1.7 - 9.3 %) 2.3 Eosinophils % (0 - 5 %) 0 Basophils % (0.0 - 2.0 %) 0 L Absolute Granulocytes (1.4 - 6.5 /CUMM) 21.3 H Absolute Lymphocytes (1.2 - 3.4 /CUMM) 0.4 L Absolute Monocytes (0.10 - 0.60 /CUMM) 0.5 Absolute Eosinophils (0.0 - 0.7 /CUMM) 0 Absolute Basophils (0.0 - 0.2 /CUMM) 0 PUBS MCHC (33.0 - 37.0 G/DL) 34.0 CTA chest Adequate contrast opacification of the pulmonary arterial vasculature, without evidence of pulmonary embolism. The lungs are hypoinflated. There is no airspace consolidation to suggest infection. Incidental note is made of hypoattenuating nodules within the bilateral thyroid lobes, as described above. A nonemergent, outpatient thyroid ultrasound may be obtained for further evaluation. VTE: Negative. Assessment and problem list * Dyspnea on exertion - likely due to use of prednisone and deconditioning; doubt COPD exacerbation * History of lupus * History of coronary heart disease * Hyperlipidemia * History of IBD * History of GERD * History of anxiety and depression Plan * Decrease prednisone to 5 mg daily * Physical therapy evaluation * Ambulate as tolerated * Rheumatology evaluation on Thursday * We will consider holding Requip if patient's symptoms do not improve
[2016-09-27 16:14] VITALS: BP 128/78
[2016-09-27 23:51] VITALS: BP 136/88
[2016-09-28 08:49] VITALS: BP 124/80
--- NOTE | 2016-09-28 08:59 | PN- Housestaff ---
Subjective Follow-up For: COPD exacerbation Subjective: Patient seen and examined this morning. She was lying in bed eating her breakfast without any acute distress. She still endorses some productive cough getting better. Has been afebrile, vitals stable, Denies headache, fever, chills, chest pain, palpitations, nausea, vomiting, diarrhea, blurred/double vision, dizziness/lightheadedness. Review of Systems Constitutional: Denies: chills, fever. Cardiovascular: Denies: chest pain, orthopena, palpitations. Gastrointestinal: Denies: abdominal pain, constipation, diarrhea, nausea, vomiting. Genitourinary: Denies: dysuria, frequency. Objective Last 24 Hrs of Vital Signs/I&O Vital Signs Date Time Temp Pulse Resp B/P Pulse O2 O2 Flow FiO2 Ox Delivery Rate 09/28 0749 97.7 106 20 124/80 95 Nasal 3.0L Cannula 09/28 799 95 Nasal 3.0L Cannula 09/28 0000 Nasal 3.0L Cannula 09/27 2351 97.9 116 20 136/88 96 Nasal 3.0L Cannula 09/27 2021 93 Nasal 3.0L Cannula 09/27 1800 97 Room Air 3.0L 09/27 1614 97.5 102 21 128/78 95 Nasal 4.0L Cannula Intake & Output 09/28 1600 09/28 0800 09/28 0000 Intake Total 0 600 Output Total 300 Balance -300 600 Intake, Oral 0 600 Output, Urine 300 Physical Exam General Appearance: Alert, Oriented X3, Cooperative, No Acute Distress Cardiovascular: Regular Rate, Normal S1, Normal S2, No Murmurs Lungs: Clear to Auscultation, Normal Air Movement Abdomen: Normal Bowel Sounds, Soft, No Tenderness Extremities: No Clubbing, No Cyanosis, No Edema Current Medications: Current Medications Sig/Cherry Start time Last Medication Dose Route Stop Time Status Admin Albuterol Sulfate 3 ML BID 09/27 1000 AC 09/27 INH 2018 Albuterol Sulfate 2 PUF Q4 PRN 09/26 2044 AC INH Albuterol Sulfate 2 PUF Q4-6 PRN PRN 09/26 1929 AC INH Aspirin 81 MG DAILY 09/26 1923 AC 09/27 PO 1029 Duloxetine HCl 60 MG DAILY 09/26 1924 AC 09/27 PO 1028 Ferrous Sulfate 325 MG DAILY 09/27 1000 AC 09/27 PO 1028 Fish Oil 1,050 MG DAILY 09/27 1000 AC 09/27 PO 1027 Folic Acid 1 MG DAILY 09/27 1000 AC 09/27 PO 1028 Heparin Sodium 5,000 UNIT Q8 09/260 AC 09/28 (Porcine) SC 0602 Ipratropium [place] 2.5 ML Q8 PRN 09/26 2045 AC INH Mesalamine 1,600 MG TID 09/26 2199 AC 09/27 PO 212 Methotrexate 2.5 MG QTHURS 10/02 1000 AC PO Nicotinic Acid 500 MG DAILY 09/27 1000 AC 09/27 PO 1028 Non-Formulary 0 SEE ADMIN CRITERIA 09/27 2144 CAN Medication ANY Prednisone 5 MG DAILY 09/28 1000 AC PO Prednisone 7.5 MG DAILY 09/27 1000 DC 09/27 PO 1024 Ropinirole HCl 4 MG AT BEDTIME 09/27 0045 AC 09/27 PO 2126 Assessment/Plan Assessment: Ms. Garcia is a 75 year-old lady, active smoker (1 PPD) with a past medical history significant for COPD not on home oxygen, CAD, HLD, SLE on MTX and prednisone, Chron's disease on Asacol, varicose veins, anxiety, renal cancer status post nephrectomy and recurrent cellulitis of bilateral lower extremities, who presents with progressively worsening dyspnea, most likely 2/2 COPD exacerbation. # COPD exacerbation PE ruled out on CTA chest. No evidence of pneumonia. Patient has leukocytosis but probably 2/2 steroid use. She has no signs of infection otherwise. Normal EKG with no acute ST or T wave changes. * Cont home med prednisone 5mg PO QD * TRC nebulizer treatment as needed * Oxygen support to maintain staturation above 92% * Monitor for signs of infection * Cont home meds Atrovent and Ventolin #Coronary artery disease * Continue metoprolol and aspirin at home doses #Hyperlipidemia * Cont home dosage of Niacin #Inflammatory bowel disease * Continue Asacol #GERD * Continue PPI #Anxiety/depression * Continue home dosage of duloxetine - Diet: Regular diet - Pain pathway: Mild - DVT prophylaxis: SQ heparin - Code: Full Problem List: 1. Anxiety and depression 2. Inflammatory bowel disease 3. Coronary artery disease 4. Hyperlipidemia 5. COPD exacerbation Pain Ratin Pain Location: None Pain Goal: Remain pain free Pain Plan: Mild pain pathway Tomorrow's Labs & Rationales: CBC to monitor for infection
--- NOTE | 2016-09-28 14:01 | PN- Att Addend ---
Attending Addendum Attending Brief Note Patient seen and examined. Plan of care discussed with the medical team and the patient. Available lab work and radiology test reports were reviewed. She denies any dyspnea at rest however complains of dyspnea on exertion. She continues to have cough with scant sputum production. No fevers reported. Vital Signs Date Time Temp Pulse Resp B/P Pulse O2 O2 Flow FiO2 Ox Delivery Rate 09/28 1119 96 Nasal 3.0L Cannula 09/28 0849 97.7 106 20 124/80 95 Nasal 3.0L Cannula 09/28 799 95 Nasal 3.0L Cannula 09/28 0000 Nasal 3.0L Cannula 09/27 2351 97.9 116 20 136/88 96 Nasal 3.0L Cannula 09/27 202 93 Nasal 3.0L Cannula 09/27 1800 97 Room Air 3.0L 09/27 1614 97.5 102 21 128/78 95 Nasal 4.0L Cannula Intake & Output 09/28 1600 09/28 0800 09/28 0000 Intake Total 0 600 Output Total 300 Balance -300 600 Intake, Oral 0 600 Output, Urine 300 Exam: General: Patient awake alert oriented without any distress CVS: S1 plus S2 without any murmur or gallops Chest: Few scattered crepitation without any wheeze. There is no respiratory distress. 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 Assessment and problem list * Dyspnea on exertion - likely due to use of prednisone and deconditioning; doubt COPD exacerbation * History of lupus * History of coronary heart disease * Hyperlipidemia * History of IBD * History of GERD * History of anxiety and depression Plan * Continue prednisone 5 mg daily * Physical therapy evaluation * Ambulate as tolerated * Rheumatology evaluation on Thursday Pulmonary consult tomorrow * We will consider holding Requip if patient's symptoms do not improve * Taper oxygen as tolerated * Plan discussed with patient's daughter who was in the room
[2016-09-28 15:56] VITALS: BP 134/74
[2016-09-29 00:10] VITALS: BP 114/73
--- NOTE | 2016-09-29 06:30 | PN- Housestaff ---
ANNALEE HUFF,OSWALDO 09/29/16 0630: Subjective Follow-up For: COPD exacerbation Subjective: Patient seen and examined at bedside. Patient has not improved much since she was admitted. Patient didn't feel well yesterday and slep through the day. Feeling better this morning. Denies headache, fever, chills, chest pain, palpitations, nausea, vomiting, diarrhea, blurred/double vision, dizziness/ lightheadedness. Review of Systems Constitutional: Reports: see HPI. Objective Last 24 Hrs of Vital Signs/I&O Vital Signs Date Time Temp Pulse Resp B/P Pulse O2 O2 Flow FiO2 Ox Delivery Rate 09/29 943 95 Nasal 3.0L Cannula 09/29 913 98.4 113 20 112/60 96 Nasal 3.0L Cannula 09/29 799 93 Nasal 2.0L Cannula 09/29 0010 97.6 119 20 114/73 94 Nasal 3.0L Cannula 09/29 0000 Nasal 3.0L Cannula 09/28 1921 94 Nasal 3.0L Cannula 09/28 1556 98.2 120 22 134/74 95 Nasal 3.0L Cannula Intake & Output 09/29 1600 09/29 0800 09/29 0000 Intake Total 200 1000 Output Total Balance 200 1000 Intake, Oral 200 1000 Number 1 Bowel Movements Physical Exam General Appearance: Alert, Oriented X3, Cooperative, No Acute Distress Other Physical Findings: Skin No Rashes, No Breakdown, No Significant Lesion HEENT Atraumatic, PERRLA, EOMI, Mucous Membr. moist/pink Neck Supple, No JVD, No LAD Cardiovascular Regular Rate, Normal S1, Normal S2, No Murmurs, Gallops, Rubs Lungs Clear to Auscultation, Normal Air Movement Abdomen Normal Bowel Sounds, Soft, No Tenderness Neurological Normal Speech, Sensation Intact Extremities No Clubbing, No Cyanosis, No Edema, Normal Pulses, No Tenderness Current Medications: Current Medications Sig/Cherry Start time Last Medication Dose Route Stop Time Status Admin Albuterol Sulfate 3 ML BID 09/27 999 AC 09/29 INH 09 Albuterol Sulfate 2 PUF Q4 PRN 09/26 2044 AC INH Albuterol Sulfate 2 PUF Q4-6 PRN PRN 09/26 1929 AC INH Aspirin 81 MG DAILY 09/26 1923 AC 09/29 PO 1103 Duloxetine HCl 60 MG DAILY 09/26 1924 AC 09/29 PO 1103 Ferrous Sulfate 325 MG DAILY 09/27 1000 AC 09/29 PO 1103 Fish Oil 1,050 MG DAILY 09/27 1000 AC 09/27 PO 1027 Folic Acid 1 MG DAILY 09/27 1000 AC 09/29 PO 1102 Heparin Sodium 5,000 UNIT Q8 09/26 2199 AC 09/29 (Porcine) SC 0545 Ipratropium [place] 2.5 ML Q8 PRN 09/26 2044 AC INH Mesalamine 1,600 MG TID 09/26 2199 AC 09/29 PO 1103 Methotrexate 2.5 MG QTHURS 10/02 1000 DC PO Methotrexate 10 MG QTHURS 10/02 1000 AC PO Nicotinic Acid 500 MG DAILY 09/27 1000 AC 09/29 PO 1102 Patient Medication 1 ED .STK-MED ONE 09/29 1346 DC Teaching ED 09/29 1347 Prednisone 5 MG DAILY 09/28 1000 AC 09/29 PO 1102 Ropinirole HCl 4 MG AT BEDTIME 09/27 0045 AC 09/28 PO 2003 Last 24 Hrs of Lab/Marco Results Last 24 Hrs of Labs/Mics: Laboratory Tests 09/29/16 0609: CBC w Diff NO MAN DIFF REQ, RBC 4.81, MCV 94.2, MCH 31.5 H, RDW 17.0 H, MPV 8.8, Gran % 83.0 H, Lymphocytes % 8.8 L, Monocytes % 8.0, Eosinophils % 0, Basophils % 0.2, Absolute Granulocytes 18.3 H, Absolute Lymphocytes 1.9, Absolute Monocytes 1.8 H, Absolute Eosinophils 0, Absolute Basophils 0, PUBS MCHC 33.5 Assessment/Plan Assessment: Ms. Garcia is a 75 year-old lady, active smoker (1 PPD) with a past medical history significant for COPD not on home oxygen, CAD, HLD, SLE on MTX and prednisone, Chron's disease on Asacol, varicose veins, anxiety, renal cancer status post nephrectomy and recurrent cellulitis of bilateral lower extremities, who presents with progressively worsening dyspnea, most likely 2/2 COPD exacerbation. # COPD exacerbation PE ruled out on CTA chest. No evidence of pneumonia. Patient has leukocytosis but probably 2/2 steroid use. She has no signs of infection otherwise. Normal EKG with no acute ST or T wave changes. * Cont prednisone 5mg PO QD (do not further decrease as per rheum rec) * TRC nebulizer treatment as needed * Oxygen support to maintain staturation above 92% * Monitor for signs of infection * Cont home meds Atrovent and Ventolin * Pulmonology & cardio consulted, follow recs * Follow echo # Persistent leukocytosis Most likely steroid induced. Small suspicion that it may be 2/2 bronchitis or pneumonia. * Oncology consulted, appreciate recs #Coronary artery disease * Continue metoprolol and aspirin at home doses #Hyperlipidemia * Cont home dosage of Niacin #Inflammatory bowel disease * Continue Asacol #GERD * Continue PPI #Anxiety/depression * Continue home dosage of duloxetine - Diet: Regular diet - Pain pathway: Mild - DVT prophylaxis: SQ heparin - Code: Full Problem List: 1. HTN (hypertension) 2. Crohns disease 3. DVT prophylaxis 4. Depression 5. Restless legs 6. Osteoarthritis 7. COPD (chronic obstructive pulmonary disease) case management patient 8. COPD exacerbation 9. Hyperlipidemia 10. Coronary artery disease 11. Dyspnea 12. SLE (systemic lupus erythematosus) Pain Ratin Pain Location: 0 Pain Goal: Remain pain free Pain Plan: Mild pain pathway Tomorrow's Labs & Rationales: CBC to watch leukocytosis [facility]TH [facility]/29[facility]16 1501: Attending MD Review Statement Attending Statement Attending MD Statement: examined this patient, discuss w/resident/PA/RADIO TOWER TECHNICIAN, agreed w/resident/PA/RADIO TOWER TECHNICIAN, discussed with family, reviewed EMR data (avail), discussed with nursing, discussed with case mgmt, amended to note Attending Assessment/Plan: Patient is a pleasant 75-year-old female with history of known oxygen dependent COPD, coronary disease, Crohn's disease and reports. Presented with complaints of shortness of breath that has been progressing over the past 3 months. Denies any chest pain. Denies palpitations. She presented to the emergency room for evaluation. She was admitted with a presumptive diagnosis of COPD exacerbation however she had no clear clinical signs of exacerbation of COPD. She was not started on an increased dose of systemic steroids (her home prednisone dose was actually decreased) and she reports feeling no better than on presentation [address] angiogram shows no pulmonary embolism or infectious process. On examination she shows no evidence of volume overload to suggest heart failure. She continues to remain hypoxic requiring 3 L of oxygen to maintain saturation of 93-96%. Problems: 1. Acute hypoxic respiratory failure; unknown etiology at present. 2. COPD with no evidence of exacerbation at present 3. Coronary artery disease 4. SLE 5. Chronic leukocytosis. Plan: -Recommend obtaining an echocardiogram to evaluate her pulmonary pressures and valvular function. -Obtain pulmonary and cardiology consultation. -Continue oxygen supplementation and bronchodilator therapy. -Rheumatology consultation appreciated. Continue patient on present dose of prednisone and home regimen of methotrexate. -Patient has chronic leukocytosis dating back as far as 2012. She however has had some normal values in between. She reports she has never been evaluated by bindery cutter operator. Her daughter is very concerned about this and is requesting evaluation and hematology service. We did reassure her that at present patient does not appear to have an infectious process in place, she is also on chronic steroid therapy. She however remains very concerned.
[2016-09-29 07:50] LABS: ABSOLUTE BASOPHIL COUNT 0 /CUMM (0.0-0.2); ABSOLUTE EOSINOPHIL COUNT 0 /CUMM (0.0-0.7); ABSOLUTE GRANULOCYTE CT 18.3 /CUMM (1.4-6.5); ABSOLUTE LYMPH COUNT 1.9 /CUMM (1.2-3.4); ABSOLUTE MONOCYTE COUNT 1.8 /CUMM (0.10-0.60); BASOPHIL % 0.2 % (0.0-2.0); EOSINOPHIL % 0 % (0-5); HEMATOCRIT 45.3 % (37-47); MEAN CORPUSCULAR HGB 31.5 PG (27.0-31.0); MEAN CORPUSCULAR HGB CONC 33.5 G/DL (33.0-37.0); MEAN CORPUSCULAR VOLUME 94.2 FL (81.0-99.0); MEAN PLATELET VOLUME 8.8 FL (7.4-10.4); RED BLOOD CELL CT 4.81 /CUMM (4.20-5.40); WHITE BLOOD CELL COUNT 22.1 /CUMM (4.8-10.8)
[2016-09-29 08:40] LABS: PLATELET COUNT 405 /CUMM (130-400)
[2016-09-29 09:14] VITALS: BP 112/60
--- NOTE | 2016-09-29 12:57 | Cons- Rheumatology ---
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 I've also diagnosed her as having probable SLE on the basis of a strongly positive QING and a titer of 1-640, a elevated xcbx-cfqxet-fmynbjnv DNA antibody, a abnormal complement C4 level, as well as anti-Cardiolite. Antibodies. I have had her on methotrexate as well as tapering doses of prednisone. Although it took quite some time the vasculitic-like rash on her legs acutely on the left has not flared up recently. She has had chronically elevated white count that is of uncertain origin. She currently is admitted to the hospital because of exertional dyspnea and the etiology is unclear but has been evaluated by cardiology and awaiting a pulmonary consult apparently. She denies pleuritic chest pain and it is reassuring to know that her CT angiogram of her chest does not show a pulmonary embolism which is certainly what I would fear in a lupus patient with anti- cardiolipin antibodies. Allergies/Medications Allergies: Coded Allergies: Iodinated Contrast Media - Oral and (Iodinated Contrast Media - IV Dye) ( Intermediate, CAT SCAN DYE RED, FLUSHING, FEELING HOT, RASH 02/28/16) lactose (LACTOSE INTOLERANT 09/26/16) Home Med List: Albuterol Sulfate (Proair Hfa) 90 MCG HFA.AER.AD 2 PUF INH Q4-6 PRN PRN COPD (Reported) Ascorbic Acid/Calcium (Maura-C W/Kim Hips 500 MG-100 MG) 1 TAB TAB 500 MG PO DAILY VITAMIN (Reported) Aspirin (Children's Aspirin) 81 MG TAB 1 TAB PO DAILY HEART HEALTH (Reported) Aspirin/Acetaminophen/Caffeine (Excedrin Extra Strength Caplet) 250 MG-250 MG-65 MG TABLET 2 TAB PO PRN HEADACHE (Reported) Cetirizine HCl (Zyrtec) 10 MG TABLET 1 TAB PO DAILY ALLERGIES (Reported) Cholecalciferol (Vitamin D3) (Vitamin D) 1,000 UNIT CAPSULE 1 TAB PO AD SUPPLEMENT (Reported) Cyanocobalamin (Vitamin B-12) 1,000 MCG TAB 1 TAB PO DAILY SUPPLEMENT ( Reported) Cyclobenzaprine HCl (Unknown Strength) TABLET (Unknown Dose) UNKNOWN ( Reported) DULOXETINE HCL (Cymbalta) 60 MG ECC 1 CAP PO DAILY DEPRESSION (Reported) Ferrous Sulfate (IRON) 325 MG (65 MG IRON) TABLET 1 TAB PO DAILY SUPPLEMENT ( Reported) Folic Acid 1 MG TABLET 1 TAB PO DAILY SUPPLEMENT (Reported) Krill Oil/[place]-3/Dha/Epa ([facility] [place]-3 Krill Oil 300 Sfgl) (Unknown Strength) CAPSULE (Unknown Dose) PO DAILY SUPPLEMENT (Reported) Mesalamine (Asacol Hd) 800 MG TCP 2 TAB PO TID CROHNS (Reported) Methotrexate 2.5 MG TABLET 4 TAB PO QTHURS LUPUS (Reported) Metoprolol Tartrate 50 MG TABLET 1 TAB PO DAILY HTN (Reported) Niacin (Niacin Time Release) [address] 500 MG PO DAILY HEART (Reported) Prednisone 5 MG TABLET 7.5 MG PO DAILY SKIN-LUPUS (Reported) Rabeprazole Sodium (Aciphex 20MG) 20 MG TAB 20 MG PO BID ACID REFLUX ( Reported) Ropinirole HCl (Ropinirole ER) 4 MG TAB.ER.24H 1 TAB PO QPM RESTLESS LEGS ( Reported) Review of Systems Review of Systems: No fever rash o she denies arthralgias or joint swelling. There is no hematuria R alopecia. Past History Travel History Traveled to [place] past 21 day No Medical History Blood Transfusion Hx: No Neurological: migraine, restless leg syndrome EENT: allergies, CATARACT REMOVAL BOTH EYE Cardiovascular: CAD, hyperlipidemia, NSTEMI (2 YEARS AGO) Respiratory: COPD, obstructive sleep apnea, USES CPAP AT TIMES Gastrointestinal: Crohn's disease, diverticulitis, GERD, lactose intolerance Hepatic: NONE Renal: nephrectomy (right), urinary incontinence Musculoskeletal: osteoarthritis, SPONDYLOLISTHESIS BONE SPUR- R HEEL R KNEE TORN MENISCUS Psychiatric: anxiety, depression Endocrine: LUPUS Blood Disorders: NONE Cancer(s): renal cancer 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 Home Who Do You Live With? self Services at Home: None Primary Language: Montenegrin Smoking Status: Former Smoker Living Will? yes Functional Ability ADLs Independent: dressing, eating, toileting, bathing. Ambulation: cane IADLs Independent: shopping, housework, finances, food prep, telephone, transportation , medication admin. Exam & Diagnostic Data Vital Signs and I&O Vital Signs Date Time Temp Pulse Resp B/P Pulse O2 O2 Flow FiO2 Ox Delivery Rate 09/29 943 95 Nasal 3.0L Cannula 09/29 913 98.4 113 20 112/60 96 Nasal 3.0L Cannula 09/29 0010 97.6 119 20 114/73 94 Nasal 3.0L Cannula 09/29 0000 Nasal 3.0L Cannula 09/28 192 94 Nasal 3.0L Cannula 09/28 1556 98.2 120 22 134/74 95 Nasal 3.0L Cannula Intake & Output 09/29 1600 09/29 0800 09/29 0000 Intake Total 200 1000 Output Total Balance 200 1000 Intake, Oral 200 1000 Number 1 Bowel Movements Physical Exam: On examination she's well-developed well-nourished obese female breathing comfortably at rest. Evaluation of her skin reveals no evidence of the cutaneous vasculitic lesions on her lower extremities that she's had in the past. There is no warmth or induration of her lower left leg as it also has been in the past that was felt to be cellulitis. Also joints had good range of motion. There is no swelling or tenderness. Lab data shows a normal hematocrit and hemoglobin but a white count of 22,100 with a mild left shift. This is not appreciably different from previous CBCs. Should be noted that her sedimentation rate was only 23 on September 16 but had been as high as 89 on 07/07/2016. Chest x-rays reported as unremarkable and again the CT angiogram shows no evidence of pulmonary emboli. Assessment/Plan Assessment: Although I feel this patient does have SLE by laboratory criteria this does not appear to be the problem currently. She has no evidence of pleuritic chest pain or a pleural effusion. Again her CT angiogram is negative for pulmonary emboli. I agree with a pulmonary evaluation as apparently her cupola tapper Dr. Mayer does not feel this is cardiac. She is due to get an echocardiogram however. Recommendations: I would maintain her current dose of methotrexate once a week along with folic acid supplementation. Her prednisone dosage was 7.5 just last week and now it is been lowered to 5 mg. I would not lower this any further certainly while she is in the hospital. I will follow-up as an outpatient in my office in a few weeks. Consult Acknowledgment - Thank you for your consult request.
--- NOTE | 2016-09-29 15:49 | Cons- Cardiology ---
General Information and HPI Consulting Request Date of Consult: 09/29/16 Requested By: LOUIS CALLAHAN MD History of Present Illness: The patient is a 76 year old female who carries a history of borderline dyslipidemia, sleep apnea, remote tobacco abuse and hypertension. She has also undergone kidney resection on the right side for renal cell carcinoma, with no evidence of metastasis. It should be recalled that during the patient's hospitalization for surgery she was noted to be bradycardic, without any associated lightheadedness. Blanche has had a difficult time with bilateral lower extremity cellulitis which appears to be a recurrent problem. 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 She see's Dr. Mitchell who previously performed a venous ablation. Recently this patient has noted shortness of breath with minimal ambulation. She does have a cough but denies fever or chills. In the office I ambulated this patient and after walking about thirty feet she desaturated. As such, she was sent to the ER where a CT angiogram was done that ruled her out for a PE. She did not demonstrate any significant evidence of pulmonary edema, is free of crackles and has a very low BNP. Otherwise this patient has no chest discomfort, lightheadedness or palpitations. It should be noted that this patient has demonstrated an elevated WBC count that precedes her being on steroids. Last September, she did have a syncopal episode and I recommended placement of an implantable loop recorder. This was not pursued, but there have not been any recurrent episodes of syncope since that time. At most the patient walks only short distances at a slow pace. It should be noted that this patient was recently diagnosed with mild COPD and is feeling better now that she is on Breo. admits to some weight gain. Finally, Blanche has had a recent biopsy of her thyroid, which according to her was benign. Blanche experienced a severe syncopal episode in September of 2015. She arose from a sitting position and walked to the kitchen. The next thing she remembers is being on the floor in blood related to a bloody nose. She experienced a right orbital fracture. She was evaluated at [facility] where a definite cause of her syncopal remained elusive. She did not note any premonitory lightheadedness or palpitations.Her episodes of lightheadedness are very intermittent. We did have her undergo a tilt-table test that was negative for neurocardiogenic syncope. She did have some ST depressions using isoproterenol. 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 In consideration of this finding I previously performed a cardiac catheterization about a year ago in anticipation of her shoulder surgery. This study showed a small to moderate size LAD with one large and patent diagonal branch. The RCA harbored a 40% non-flow limiting lesion. Her shoulder replacement was performed with a brachial plexus block and the surgey went well. Work up has included a stress test performed on 03/19/09 to evaluate an abnormal ECG suggestive of old anterior IN. This study showed a poor exercise tolerance of 2 minutes/57 seconds following a Sadiq protocol. She did experience a severe hypertensive excursion, with a resting blood pressure of 156/100 mmHg that kim to 220/90 mmHg. In addition to her poor exercise tolerance on stress testing she was noted to have multiple PVC's, and on nuclear imaging there appeared to be a small fixed apical lateral defect consistent with old infarct. Her overall EF was normal at 61%. Work up also included an echocardiogram, which showed an overall normal EF of 60% with moderate left ventricular hypertrophy, likely related to hypertension. There was trace MR, trace TR and trace PI, and evidence of impaired LV relaxation. Allergies/Medications Allergies: Coded Allergies: Iodinated Contrast Media - Oral and (Iodinated Contrast Media - IV Dye) ( Intermediate, CAT SCAN DYE RED, FLUSHING, FEELING HOT, RASH 02/28/16) lactose (LACTOSE INTOLERANT 09/26/16) Home Med List: Albuterol Sulfate (Proair Hfa) 90 MCG HFA.AER.AD 2 PUF INH Q4-6 PRN PRN COPD (Reported) Ascorbic Acid/Calcium (Maura-C W/Kim Hips 500 MG-100 MG) 1 TAB TAB 500 MG PO DAILY VITAMIN (Reported) Aspirin (Children's Aspirin) 81 MG TAB 1 TAB PO DAILY HEART HEALTH (Reported) Aspirin/Acetaminophen/Caffeine (Excedrin Extra Strength Caplet) 250 MG-250 MG-65 MG TABLET 2 TAB PO PRN HEADACHE (Reported) Cetirizine HCl (Zyrtec) 10 MG TABLET 1 TAB PO DAILY ALLERGIES (Reported) Cholecalciferol (Vitamin D3) (Vitamin D) 1,000 UNIT CAPSULE 1 TAB PO AD SUPPLEMENT (Reported) Cyanocobalamin (Vitamin B-12) 1,000 MCG TAB 1 TAB PO DAILY SUPPLEMENT ( Reported) Cyclobenzaprine HCl (Unknown Strength) TABLET (Unknown Dose) UNKNOWN ( Reported) DULOXETINE HCL (Cymbalta) 60 MG ECC 1 CAP PO DAILY DEPRESSION (Reported) Ferrous Sulfate (IRON) 325 MG (65 MG IRON) TABLET 1 TAB PO DAILY SUPPLEMENT ( Reported) Folic Acid 1 MG TABLET 1 TAB PO DAILY SUPPLEMENT (Reported) Krill Oil/[place]-3/Dha/Epa ([facility]vs [place]-3 Krill Oil 300 Sfgl) (Unknown Strength) CAPSULE (Unknown Dose) PO DAILY SUPPLEMENT (Reported) Mesalamine (Asacol Hd) 800 MG TCP 2 TAB PO TID CROHNS (Reported) Methotrexate 2.5 MG TABLET 4 TAB PO QTHURS LUPUS (Reported) Metoprolol Tartrate 50 MG TABLET 1 TAB PO DAILY HTN (Reported) Niacin (Niacin Time Release) [address] 500 MG PO DAILY HEART (Reported) Prednisone 5 MG TABLET 7.5 MG PO DAILY SKIN-LUPUS (Reported) Rabeprazole Sodium (Aciphex 20MG) 20 MG TAB 20 MG PO BID ACID REFLUX ( Reported) Ropinirole HCl (Ropinirole ER) 4 MG TAB.ER.24H 1 TAB PO QPM RESTLESS LEGS ( Reported) Review of Systems Review of Systems: leg erythema Past History Travel History Traveled to [place] past 21 day No Medical History Blood Transfusion Hx: No Neurological: migraine, restless leg syndrome EENT: allergies, CATARACT REMOVAL BOTH EYE Cardiovascular: CAD, hyperlipidemia, NSTEMI (2 YEARS AGO) Respiratory: COPD, obstructive sleep apnea, USES CPAP AT TIMES Gastrointestinal: Crohn's disease, diverticulitis, GERD, lactose intolerance Hepatic: NONE Renal: nephrectomy (right), urinary incontinence Musculoskeletal: osteoarthritis, SPONDYLOLISTHESIS BONE SPUR- R HEEL R KNEE TORN MENISCUS Psychiatric: anxiety, depression Endocrine: LUPUS Blood Disorders: NONE Cancer(s): renal cancer 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 Home Who Do You Live With? self Services at Home: None Primary Language: Syriac Smoking Status: Former Smoker Living Will? yes Functional Ability ADLs Independent: dressing, eating, toileting, bathing. Ambulation: cane IADLs Independent: shopping, housework, finances, food prep, telephone, transportation , medication admin. Exam & Diagnostic Data Vital Signs and I&O Vital Signs Date Time Temp Pulse Resp B/P Pulse O2 O2 Flow FiO2 Ox Delivery Rate 09/29 1607 97.7 113 20 116/76 95 Nasal 2.0L Cannula 09/29 943 95 Nasal 3.0L Cannula 09/29 913 98.4 113 20 112/60 96 Nasal 3.0L Cannula 09/29 799 93 Nasal 2.0L Cannula 09/29 0010 97.6 119 20 114/73 94 Nasal 3.0L Cannula 09/29 0000 Nasal 3.0L Cannula 09/28 1921 94 Nasal 3.0L Cannula Intake & Output 09/29 1600 09/29 0000 09/28 1600 09/28 0000 Intake Total 200 1000 720 0 600 Output Total 300 Balance 200 1000 720 -300 600 Intake, Oral 200 1000 720 0 600 Number 1 1 Bowel Movements Output, Urine 300 Physical Exam: General: WD/obese female in NAD; alert and oriented x 3 HEENT: NC/AT, PERRL, EOMI, clear oropharynx Neck: no JVD, no carotid bruit Heart: RRR w/o murmur, split S2 Lungs: clear bilaterally Abdomen: soft, NT, +ve bowel sounds Extremities: no edema, venous stasis changes bilaterally Assessment/Plan Assessment/Plan * This patient has shortness of breath and decreasing oxygen saturation upon ambulation. This problem is not new but is becoming worse. Although no central pulmonary emboli are noted more peripheral emboli could not be excluded on her CT angiogram and a V/ Q scan should be considered. I would also pursue pulmonary function tests. I do agree with obtaining an echocardiogram that can give us some idea of her pulmonary pressures in addition to her LV and RV function. I suspect that this patient may have a viral URI superimposed on severe deconditioning and obesity. I do not see evidence of decompensated CHF on the patient's exam and she has a very low BNP and is known to have a normal EF that supports an alternative diagnosis. A high resolution CT may be helpful. I agree with a pulmonary consult for now. * Blanche's blood pressure is currently well controlled. I have encouraged her to be more active and to lose weight but she is limited by her arthritis. Her last lipid profile was excellent with an LDL of 68, HDL of 47 and triglycerides of 58. She was found to have tortuous coronaries on cardiac catheterization which is consistent with hypertensive heart disease. A low sodium diet has been encouraged. * Although this patient did have a prior abnormal stress test showing inferolateral ischemia with normal overall EF of 71% her cardiac cath only showed a 40% RCA lesion which was not flow limiting. I did take note of only a small to moderate size LAD. 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 She does have tortuous vessels consistent with hypertension as well. * She did demonstrate some subtle ST depressions with isoproterenol that was given during her tilt-table test but I am not inclined to pursue a cardiac catheterization unless compelled to in the setting of her unilateral kidney with increasing creatinine. Consult Acknowledgment - Thank you for your consult request.
[2016-09-29 16:07] VITALS: BP 116/76
--- NOTE | 2016-09-29 18:33 | Cons- Hematology ---
General Information and HPI Consulting Request Date of Consult: 09/29/16 Requested By: LOUIS CALLAHAN MD Reason for Consult: Leukocytosis Source of Information: patient, old records Exam Limitations: no limitations History of Present Illness: Ms. Garcia is a 76-year-old female with history of renal cell carcinoma status right radical nephrectomy in April 2011, CAD, Crohn disease, sleep apnea , former tobacco usage, probable SLE, and arthritis who presents to the hospital with 3 weeks of progressive shortness of breath. She has progressive dyspnea with exertion over the past few weeks and subsequently presented tot he ED. She has not had any fever or chills. She denies any chest pain. She does have fatigue. She denies any night sweats. She denies any weight loss. She denies any new lumps or bumps. She does take prednisone for the past few months. She is also on methotrexate. Since admission, she was noted to have persistent elevation of her WBC with current level at 22,100. CTA of the chest was negative for PE. She currently continues to be short of breath. She is stable on oxygen. She denies any new pain. She does not remember being told she had high cell counts. She has been seen by rheumatology and cardiology. Allergies/Medications Allergies: Coded Allergies: Iodinated Contrast Media - Oral and (Iodinated Contrast Media - IV Dye) ( Intermediate, CAT SCAN DYE RED, FLUSHING, FEELING HOT, RASH 02/28/16) lactose (LACTOSE INTOLERANT 09/26/16) Home Med List: Albuterol Sulfate (Proair Hfa) 90 MCG HFA.AER.AD 2 PUF INH Q4-6 PRN PRN COPD (Reported) Ascorbic Acid/Calcium (Maura-C W/Kim Hips 500 MG-100 MG) 1 TAB TAB 500 MG PO DAILY VITAMIN (Reported) Aspirin (Children's Aspirin) 81 MG TAB 1 TAB PO DAILY HEART HEALTH (Reported) Aspirin/Acetaminophen/Caffeine (Excedrin Extra Strength Caplet) 250 MG-250 MG-65 MG TABLET 2 TAB PO PRN HEADACHE (Reported) Cetirizine HCl (Zyrtec) 10 MG TABLET 1 TAB PO DAILY ALLERGIES (Reported) Cholecalciferol (Vitamin D3) (Vitamin D) 1,000 UNIT CAPSULE 1 TAB PO AD SUPPLEMENT (Reported) Cyanocobalamin (Vitamin B-12) 1,000 MCG TAB 1 TAB PO DAILY SUPPLEMENT ( Reported) Cyclobenzaprine HCl (Unknown Strength) TABLET (Unknown Dose) UNKNOWN ( Reported) DULOXETINE HCL (Cymbalta) 60 MG ECC 1 CAP PO DAILY DEPRESSION (Reported) Ferrous Sulfate (IRON) 325 MG (65 MG IRON) TABLET 1 TAB PO DAILY SUPPLEMENT ( Reported) Folic Acid 1 MG TABLET 1 TAB PO DAILY SUPPLEMENT (Reported) Krill Oil/[place]-3/Dha/Epa ([facility] [place]-3 Krill Oil 300 Sfgl) (Unknown Strength) CAPSULE (Unknown Dose) PO DAILY SUPPLEMENT (Reported) Mesalamine (Asacol Hd) 800 MG TCP 2 TAB PO TID CROHNS (Reported) Methotrexate 2.5 MG TABLET 4 TAB PO QTHURS LUPUS (Reported) Metoprolol Tartrate 50 MG TABLET 1 TAB PO DAILY HTN (Reported) Niacin (Niacin Time Release) [address] 500 MG PO DAILY HEART (Reported) Prednisone 5 MG TABLET 7.5 MG PO DAILY SKIN-LUPUS (Reported) Rabeprazole Sodium (Aciphex 20MG) 20 MG TAB 20 MG PO BID ACID REFLUX ( Reported) Ropinirole HCl (Ropinirole ER) 4 MG TAB.ER.24H 1 TAB PO QPM RESTLESS LEGS ( Reported) Current Medications: Current Medications Sig/Cherry Start time Last Medication Dose Route Stop Time Status Admin Albuterol Sulfate 3 ML BID 09/27 999 AC 09/29 INH 0942 Albuterol Sulfate 2 PUF Q4 PRN 09/26 2044 AC INH Albuterol Sulfate 2 PUF Q4-6 PRN PRN 09/26 1930 AC INH Aspirin 81 MG DAILY 09/26 1923 AC 09/29 PO 1103 Duloxetine HCl 60 MG DAILY 09/26 1924 AC 09/29 PO 1103 Ferrous Sulfate 325 MG DAILY 09/27 1000 AC 09/29 PO 1103 Fish Oil 1,050 MG DAILY 09/27 999 AC 09/27 PO 1027 Folic Acid 1 MG DAILY 09/27 999 AC 09/29 PO 1102 Heparin Sodium 5,000 UNIT Q8 09/26 2199 AC 09/29 (Porcine) SC 1613 Ipratropium [place] 2.5 ML Q8 PRN 09/26 2044 AC INH Mesalamine 1,600 MG TID 09/26 2199 AC 09/29 PO 1614 Methotrexate 2.5 MG QTHURS 10/02 1000 DC PO Methotrexate 10 MG QTHURS 10/02 1000 AC PO Nicotinic Acid 500 MG DAILY 09/27 1000 AC 09/29 PO 1102 Patient Medication 1 ED .[facility] 09/29 1346 SD Teaching ED 09/29 1347 Prednisone 5 MG DAILY 09/28 1000 AC 09/29 PO 1102 Ropinirole HCl 4 MG AT BEDTIME 09/27 0045 AC 09/28 PO 2003 Review of Systems Review of Systems Constitutional: Reports: malaise. Denies: chills, diaphoresis, fever, unexplained weight loss. EENTM: Denies: double vision. Cardiovascular: Denies: chest pain, orthopena, syncope. Respiratory: Reports: cough, short of breath. Denies: hemoptysis, sputum production. GI: Denies: abdominal pain, diarrhea. Genitourinary: Denies: dysuria. Musculoskeletal: Reports: joint pain. Denies: back pain. Skin: Reports: rash. Neurological/Psychological: Denies: anxiety, confusion. Hematologic/Endocrine: Denies: bruising, bleeding. Immunologic/Allergic: Denies: lymphadenopathy. All Other Systems: Reviewed and Negative Past History Travel History Traveled to [place] past 21 day No Medical History Blood Transfusion Hx: No Neurological: migraine, restless leg syndrome EENT: allergies, CATARACT REMOVAL BOTH EYE Cardiovascular: CAD, hyperlipidemia, NSTEMI (2 YEARS AGO) Respiratory: COPD, obstructive sleep apnea, USES CPAP AT TIMES Gastrointestinal: Crohn's disease, diverticulitis, GERD, lactose intolerance Hepatic: NONE Renal: nephrectomy (right), urinary incontinence, RCC Musculoskeletal: osteoarthritis, SPONDYLOLISTHESIS BONE SPUR- R HEEL R KNEE TORN MENISCUS Psychiatric: anxiety, depression Endocrine: LUPUS Blood Disorders: NONE Cancer(s): 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 Home Who Do You Live With? self Services at Home: None Primary Language: Macedonian Smoking Status: Former Smoker Living Will? yes Functional Ability ADLs Independent: dressing, eating, toileting, bathing. Ambulation: cane IADLs Independent: shopping, housework, finances, food prep, telephone, transportation , medication admin. Exam & Diagnostic Data Vital Signs and I&O Vital Signs Date Time Temp Pulse Resp B/P Pulse O2 O2 Flow FiO2 Ox Delivery Rate 09/29 1607 97.7 113 20 116/76 95 Nasal 2.0L Cannula 09/29 943 95 Nasal 3.0L Cannula 09/29 913 98.4 113 20 112/60 96 Nasal 3.0L Cannula 09/29 799 93 Nasal 2.0L Cannula 09/29 0010 97.6 119 20 114/73 94 Nasal 3.0L Cannula 09/29 0000 Nasal 3.0L Cannula 09/28 192 94 Nasal 3.0L Cannula Intake & Output 09/29 1600 09/29 0809/29 0000 Intake Total 494 165 0355 Output Total Balance 142 533 0161 Intake, IV 10 Intake, Oral 048 143 1265 Number 1 1 Bowel Movements Physical Exam General Appearance: awake, comfortable, obese Head: atraumatic, normal appearance Eyes: Bilateral: PERRL. Ears, Nose, Throat: normal pharynx, moist mucus membranes Neck: supple Respiratory: normal breath sounds Cardiovascular: regular rate/rhythm Gastrointestinal: normal bowel sounds, soft, non-tender, no organomegaly Extremities: normal inspection, no edema Neurologic/Psych: alert, oriented x 3 Cranial Nerves: normal speech, PERRL Skin: normal color Lymphatic: no anterior cervical maycol Last 48 Hours of Lab Results: Laboratory Tests 09/29 608 Hematology CBC w Diff NO MAN DIFF REQ WBC (4.8 - 10.8 /CUMM) 22.1 H RBC (4.20 - 5.40 /CUMM) 4.81 Hgb (12.0 - 16.0 G/DL) 15.2 Hct (37 - 47 %) 45.3 MCV (81.0 - 99.0 FL) 94.2 MCH (27.0 - 31.0 PG) 31.5 H RDW (11.5 - 14.5 %) 17.0 H Plt Count (130 - 400 /CUMM) 405 H MPV (7.4 - 10.4 FL) 8.8 Gran % (42.2 - 75.2 %) 83.0 H Lymphocytes % (20.5 - 51.1 %) 8.8 L Monocytes % (1.7 - 9.3 %) 8.0 Eosinophils % (0 - 5 %) 0 Basophils % (0.0 - 2.0 %) 0.2 Absolute Granulocytes (1.4 - 6.5 /CUMM) 18.3 H Absolute Lymphocytes (1.2 - 3.4 /CUMM) 1.9 Absolute Monocytes (0.10 - 0.60 /CUMM) 1.8 H Absolute Eosinophils (0.0 - 0.7 /CUMM) 0 Absolute Basophils (0.0 - 0.2 /CUMM) 0 PUBS MCHC (33.0 - 37.0 G/DL) 33.5 Imaging/Other Studies: Chest CTA 09/26/2016: Adequate contrast opacification of the pulmonary arterial vasculature, without evidence of pulmonary embolism. The lungs are hypoinflated. There is no airspace consolidation to suggest infection. Incidental note is made of hypoattenuating nodules within the bilateral thyroid lobes, as described above. A nonemergent, outpatient thyroid ultrasound may be obtained for further evaluation. VTE: Negative. Assessment/Plan Assessment: Ms. Garcia is a 71 year-old female with history of renal cell carcinoma s/p right radical nephrectomy (04/2011), COPD, CAD, SLE, Crohn's, and arthritis who presents with dysnpea with exertion. Chest CTA is negative. She was recently on prednisone and methotrexate. Cardiology and rheumatology are seeing the patient. She is currently being work up for COPD exacerbation, URI, or CAD. She is on prednisone and methotrexate currently. Work up so far has reveal WBC of 22,100. It has been noted that the patient has had a leukocytosis since April 2011. It has been fluctuating. She was previously offered work up for leukocytosis but did not follow up previously. In the last few months, her WBC has been in the 20,000s to 30,000s. Her differentials have been relatively normal except for a slightly elevated monocytes percentage previous. Her smear noted an increase in granulocytes, atypical lymphocytes, and slightly increased monocytes. There are no blast noted. Her last imaging scan was in July 2016 and demonstrated no significant adenopathy or recurrence of her RCC. She has no significant B symptoms at the moment. Chronic inflammatory state can cause her to have leukocytosis such as Crohn's and SLE. Prednisone usage may also cause the recent increase in her WBC. Given the persistent nature of her leukocytosis, it is reasonable to seen a flow cytometry on the patient to evaluate for any underlying myeloproliferative disease. Recommendations: 1. Send peripheral blood for flow cytometry for leukemia/lymphoma evaluation 2. Follow up as outpatient Problem List: 1. Crohns disease 2. Leukocytosis 3. SLE (systemic lupus erythematosus) 4. COPD (chronic obstructive pulmonary disease) case management patient Other Findings/Comments: Please call [phone] with any questions or concerns. Consult Acknowledgment - Thank you for your consult request.
[2016-09-30 00:14] VITALS: BP 120/82
--- NOTE | 2016-09-30 06:20 | PN- Housestaff ---
ANNALEE HUFF,OSWALDO 09/30/16 0619: Subjective Follow-up For: COPD exacerbation Subjective: Patient seen and examined at bedside. Patient reports her dypsnea has improved. Now only requiring 1L oxygen this morning. Denies headache, fever, chills, chest pain, palpitations, nausea, vomiting, diarrhea, blurred/double vision, dizziness /lightheadedness. Review of Systems Constitutional: Reports: see HPI. Objective Last 24 Hrs of Vital Signs/I&O Vital Signs Date Time Temp Pulse Resp B/P Pulse O2 O2 Flow FiO2 Ox Delivery Rate 09/30 899 94 Nasal 1.5L Cannula 09/30 0819 98.0 94 20 124/80 94 Nasal 1.0L Cannula 09/30 08 96 Nasal 1.0L Cannula 09/30 0014 98.8 113 20 120/82 95 Nasal 1.0L Cannula 09/30 0000 Nasal 1.0L Cannula 09/29 1905 97 Nasal 2.0L Cannula 09/29 1607 97.7 113 20 116/76 95 Nasal 2.0L Cannula Intake & Output 09/30 1600 09/30 0800 09/30 0000 Intake Total Output Total 800 Balance -800 Output, Urine 800 Physical Exam General Appearance: Alert, Oriented X3, Cooperative, No Acute Distress Other Physical Findings: Skin No Rashes, No Breakdown, No Significant Lesion HEENT Atraumatic, PERRLA, EOMI, Mucous Membr. moist/pink Neck Supple, No JVD, No LAD Cardiovascular Regular Rate, Normal S1, Normal S2, No Murmurs, Gallops, Rubs Lungs Clear to Auscultation, Normal Air Movement Abdomen Normal Bowel Sounds, Soft, No Tenderness Neurological Normal Speech, Sensation Intact Extremities No Clubbing, No Cyanosis, No Edema, Normal Pulses, No Tenderness Current Medications: Current Medications Sig/Cherry Start time Last Medication Dose Route Stop Time Status Admin Acetaminophen 650 MG ONCE ONE 09/30 1045 CAN PO 09/30 1046 Acetaminophen 650 MG Q6-PRN PRN 09/30 1045 AC PO Albuterol Sulfate 3 ML BID 09/27 1000 AC 09/30 INH 0900 Albuterol Sulfate 2 PUF Q4 PRN 09/26 2044 AC INH Albuterol Sulfate 2 PUF Q4-6 PRN PRN 09/26 193 AC INH Aspirin 81 MG DAILY 09/26 1923 AC 09/30 PO 1027 Duloxetine HCl 60 MG DAILY 09/26 1925 AC 09/30 PO 1027 Ferrous Sulfate 325 MG DAILY 09/27 1000 AC 09/30 PO 1027 Fish Oil 1,050 MG DAILY 09/27 1000 AC 09/30 PO 1028 Folic Acid 1 MG DAILY 09/27 1000 AC 09/30 PO 1027 Heparin Sodium 5,000 UNIT Q8 09/26 2200 AC 09/30 (Porcine) SC 0552 Ibuprofen 400 MG ONCE ONE 09/30 1045 CAN PO 09/30 1046 Ipratropium [place] 2.5 ML Q8 PRN 09/26 2045 AC INH Mesalamine 1,600 MG TID 09/26 2200 AC 09/30 PO 1027 Methotrexate 10 MG QTHURS 10/02 1000 AC PO Nicotinic Acid 500 MG DAILY 09/27 1000 AC 09/30 PO 1028 Oxycodone/ 1 TAB ONCE ONE 09/30 1045 DC 09/30 Acetaminophen PO 09/30 1046 1047 Prednisone 5 MG DAILY 09/28 1000 AC 09/30 PO 1027 Ropinirole HCl 4 MG AT BEDTIME 09/27 0045 AC 09/29 PO 1941 Last 24 Hrs of Lab/Marco Results Last 24 Hrs of Labs/Mics: Laboratory Tests 09/30/16 1115: Pulse Ox Probe Site LEFT MIDDLE FINGER, ABG O2 Sat Calc/Sandeep 94.0, O2 Delivery Method NC, FiO2 1.5LPM 09/30/16 0700: CBC w Diff NO MAN DIFF REQ, RBC 4.99, MCV 94.9, MCH 32.0 H, RDW 17.2 H, MPV 9.0, Gran % 81.1 H, Lymphocytes % 9.3 L, Monocytes % 9.4 H, Eosinophils % 0.1 , Basophils % 0.1, Absolute Granulocytes 16.5 H, Absolute Lymphocytes 1.9, Absolute Monocytes 1.9 H, Absolute Eosinophils 0, Absolute Basophils 0, PUBS MCHC 33.8 09/30/16 0600: Flow Cytometry Specimen Pending Assessment/Plan Assessment: Ms. Garcia is a 75 year-old lady, active smoker (1 PPD) with a past medical history significant for COPD not on home oxygen, CAD, HLD, SLE on MTX and prednisone, Chron's disease on Asacol, varicose veins, anxiety, renal cancer status post nephrectomy and recurrent cellulitis of bilateral lower extremities, who presents with progressively worsening dyspnea, most likely 2/2 COPD exacerbation. # COPD exacerbation PE ruled out on CTA chest. No evidence of pneumonia. Patient has leukocytosis but probably 2/2 steroid use. She has no signs of infection otherwise. Normal EKG with no acute ST or T wave changes. * Cont prednisone 5mg PO QD (do not further decrease as per rheum rec) * TRC nebulizer treatment as needed * Oxygen support to maintain staturation above 92% * Monitor for signs of infection * Cont home meds Atrovent and Ventolin * Pulmonology & cardio consulted, follow recs * Follow echo # Persistent leukocytosis Most likely steroid induced. Small suspicion that it may be 2/2 bronchitis or pneumonia. * Oncology consulted, appreciate recs #Coronary artery disease * Continue metoprolol and aspirin at home doses #Hyperlipidemia * Cont home dosage of Niacin #Inflammatory bowel disease * Continue Asacol #GERD * Continue PPI #Anxiety/depression * Continue home dosage of duloxetine - Diet: Regular diet - Pain pathway: Mild - DVT prophylaxis: SQ heparin - Code: Full Problem List: 1. HTN (hypertension) 2. Anxiety and depression 3. Inflammatory bowel disease 4. Coronary artery disease 5. Hyperlipidemia 6. COPD exacerbation 7. Dyspnea 8. COPD (chronic obstructive pulmonary disease) case management patient 9. SLE (systemic lupus erythematosus) 10. Anxiety 11. GERD (gastroesophageal reflux disease) 12. KUSH (obstructive sleep apnea) 13. HLD (hyperlipidemia) Pain Ratin Pain Location: 0 Pain Goal: Remain pain free Pain Plan: Mild pathway Tomorrow's Labs & Rationales: CBC to watch leukocytosis YIN CARSON MD 09/30/16 1238: Attending MD Review Statement Attending Statement Attending MD Statement: examined this patient, discuss w/resident/PA/COMMUNITY SUPPORT ASSOCIATE, agreed w/resident/PA/COMMUNITY SUPPORT ASSOCIATE, discussed with family, reviewed EMR data (avail), discussed with nursing, discussed with case mgmt, amended to note Attending Assessment/Plan: Patient seen and examined. She reports some improvement of her pulmonary symptoms. She reports been able to ambulate increasing distance yesterday without needing to stop and catch her breath. Oxygen requirement is down from 3 L over the weekend to 1-1.5 L currently. On examination Barker remain clear to auscultation bilaterally. Echocardiogram was done and shows normal ejection fraction of 70% no significant valvular disease, moderate left ventricular hypertrophy and normal pulmonary pressures. She does have evidence of diastolic dysfunction with impaired LV relaxation. Pulmonary consultation deeply appreciated and suggested differentials noted. Problems: 1. Acute hypoxic respiratory failure 2. Chronic diastolic dysfunction 3. COPD 4. Chronic leukocytosis Plan: -Continue to mobilize patient today and taper down oxygen supplementation. -Outpatient pulmonology follow-up for high-resolution CT scan to rule out interstitial lung disease associated with no lups or drug induced, pulmonary function testing and diaphragmatic fluoroscopy if indicated. -Follow-up with the hematology service as an outpatient for flow cytometry and further workup of chronic leukocytosis. -Continued outpatient follow-up with the cardiology service. -Continue attempts to wean patient off oxygen supplementation. If we are unable to she will be discharged on oxygen supplementation tomorrow.
--- NOTE | 2016-09-30 08:14 | ECHOCARDIOGRAM REPORT ---
JEEVAN VAUGHAN Age: 76 : 1940 Gender: F Exam Date: 09/29/2016 18:35 Exam Location: [address] [place] [address] Ht (in): 62 Wt (lb): 202 BSA: 2.05 BP: 116 / 76 Ordering Physician: PRISCILLA PARRY MD Referring Physician: Jared Mayer MD, PhD Technologist: Anum Oden [facility] Room Number: 211-01 Indications: PULMONARY HYPERTENSION Rhythm: Sinus Technical Quality: technically limited FINDINGS Left Ventricle Normal left ventricular size with moderate left ventricular hypertrophy. Normal systolic function with no obvious regional wall motion abnormalities. Diastolic filling pattern is consistent with impaired LV relaxation. The ejection fraction is visually estimated at 70%. Right Ventricle The right ventricle is normal in size and function. Right Atrium The right atrium is normal in size. Left Atrium The left atrium is normal in size. The interatrial septum is intact. Mitral Valve The mitral valve is normal in structure and function. There is no mitral regurgitation. Aortic Valve Structurally normal aortic valve without significant sclerosis or stenosis. There is no aortic regurgitation. Tricuspid Valve The tricuspid valve is normal in structure and function. There is trace tricuspid regurgitation. Pulmonary artery systolic pressure is normal. Pulmonic Valve Structurally normal pulmonic valve. There is no pulmonic regurgitation. Pericardium Normal pericardium without effusion. No pleural effusion. Great Vessels Normal aortic root dimension. The aortic arch and great vessels are well seen and are normal. CONCLUSIONS 1. Normal EF of 70% with impaired LV relaxationb. 2. Moderate left ventricular hypertrophy. 3. Trace tricuspid regurgitation. Jared Mayer M.D. (Electronically Signed) Final Date: 30 September 2016 08:14 MEASUREMENTS (Male / Female) Normal Values 2D ECHO LV Diastolic Diameter PLAX 4.0 cm 4.2 - 5.9 / 3.9 - 5.3 cm LV Systolic Diameter PLAX 2.2 cm 2.1 - 4.0 cm LV Fractional Shortening PLAX 45.0 % 25 - 46 % LV Ejection Fraction 2D Teich 76.9 % IVS Diastolic Thickness 1.6 cm LVPW Diastolic Thickness 1.6 cm LV Relative Wall Thickness 0.8 RV Internal Dim ED PLAX 2.9 cm 1.9 - 3.8 cm LVOT Diameter 2.1 cm Aortic Root Diameter 2.7 cm LA Systolic Diameter LX 3.3 cm 3.0 - 4.0 / 2.7 - 3.8 cm LA Volume 30.0 cm 18 - 58 / 22 - 52 cm Ascending Aorta Diameter 3.2 cm DOPPLER AV Peak Velocity 142.0 cm/s AV Peak Gradient 8.1 mmHg AV Mean Velocity 100.0 cm/s AV Mean Gradient 5.0 mmHg AV Velocity Time Integral 25.1 cm LVOT Peak Velocity 103.0 cm/s LVOT Peak Gradient 4.2 mmHg LVOT Mean Velocity 71.1 cm/s LVOT Mean Gradient 2.0 mmHg LVOT Velocity Time Integral 18.4 cm LVOT Stroke Volume 63.7 cm AV Area Cont Eq vti 2.5 cm AV Area Cont Eq pk 2.5 cm MV Peak Velocity 108.0 cm/s MV Peak Gradient 4.7 mmHg MV Mean Velocity 60.1 cm/s MV Mean Gradient 2.0 mmHg Mitral E Point Velocity 63.7 cm/s Mitral A Point Velocity 89.8 cm/s Mitral E to A Ratio 0.7 MV PHT Velocity 86.9 cm/s MV Deceleration [place] 304.0 cm/s MV Pressure Half Time 85.8 ms MV Area PHT 2.6 cm MV Deceleration Time 222.0 ms TR Peak Velocity 236.0 cm/s TR Peak Gradient 22.3 mmHg Right Atrial Pressure 5.0 mmHg Pulmonary Artery Systolic Pressu 27.3 mmHg Right Ventricular Systolic Press 27.3 mmHg PV Peak Velocity 112.0 cm/s PV Peak Gradient 5.0 mmHg PV Mean Velocity 80.1 cm/s PV Mean Gradient 3.0 mmHg PV Velocity Time Integral 18.0 cm LV E' Lateral Velocity 9.4 cm/s Mitral E to LV E' Lateral Ratio 6.8 LV E' Septal Velocity 5.1 cm/s Mitral E to LV E' Septal Ratio 12.4
[2016-09-30 08:19] VITALS: BP 124/80
[2016-09-30 08:52] LABS: ABSOLUTE BASOPHIL COUNT 0 /CUMM (0.0-0.2); ABSOLUTE EOSINOPHIL COUNT 0 /CUMM (0.0-0.7); ABSOLUTE GRANULOCYTE CT 16.5 /CUMM (1.4-6.5); ABSOLUTE LYMPH COUNT 1.9 /CUMM (1.2-3.4); ABSOLUTE MONOCYTE COUNT 1.9 /CUMM (0.10-0.60); BASOPHIL % 0.1 % (0.0-2.0); EOSINOPHIL % 0.1 % (0-5); HEMATOCRIT 47.3 % (37-47); MEAN CORPUSCULAR HGB CONC 33.8 G/DL (33.0-37.0); MEAN CORPUSCULAR VOLUME 94.9 FL (81.0-99.0); PLATELET COUNT 390 /CUMM (130-400); RBC DISTRIBUTION WIDTH 17.2 % (11.5-14.5); RED BLOOD CELL CT 4.99 /CUMM (4.20-5.40); WHITE BLOOD CELL COUNT 20.3 /CUMM (4.8-10.8)
[2016-09-30 09:18] LABS: GRANULOCYTE % 81.1 % (42.2-75.2)
--- NOTE | 2016-09-30 11:34 | PN- Hematology ---
Subjective Subjective: Her breathing is a little better. She denies any new pain. She is on 1.5L NC. She denies any fever or chills. Review of Systems Constitutional: Denies: chills, fever. Cardiovascular: Denies: chest pain. Respiratory: Reports: short of breath. Gastrointestinal: Denies: abdominal pain. Immunologic/Allergic: Denies: lymphadenopathy. All Other Systems: Reviewed and Negative Objective Vital Signs and I&Os Vital Signs Date Time Temp Pulse Resp B/P Pulse O2 O2 Flow FiO2 Ox Delivery Rate 09/30 899 94 Nasal 1.5L Cannula 09/30 818 98.0 94 20 124/80 94 Nasal 1.0L Cannula 09/30 08 96 Nasal 1.0L Cannula 09/30 0014 98.8 113 20 120/82 95 Nasal 1.0L Cannula 09/30 0000 Nasal 1.0L Cannula 09/29 1905 97 Nasal 2.0L Cannula 09/29 1607 97.7 113 20 116/76 95 Nasal 2.0L Cannula Intake & Output 09/30 1600 09/30 0809/30 0000 09/29 1600 09/29 0800 09/29 0000 Intake Total 904 124 4169 Output Total 800 Balance -800 090 183 8561 Intake, IV 10 Intake, Oral 432 020 9559 Number 1 1 Bowel Movements Output, Urine 800 Physical Exam: General Appearance: awake, comfortable, obese Head: atraumatic, normal appearance Ears, Nose, Throat: normal pharynx, moist mucus membranes Neck: supple Respiratory: normal breath sounds Cardiovascular: regular rate/rhythm Gastrointestinal: normal bowel sounds, soft, non-tender, no organomegaly Extremities: normal inspection, no edema Neurologic/Psych: alert, oriented x 3 Cranial Nerves: normal speech, PERRL Skin: normal color Lymphatic: no anterior cervical adenopathy, no adenopathy. Current Medications: Current Medications Sig/Cherry Start time Last Medication Dose Route Stop Time Status Admin Acetaminophen 650 MG ONCE ONE 09/30 1045 CAN PO 09/30 1046 Acetaminophen 650 MG Q6-PRN PRN 09/30 1045 AC PO Albuterol Sulfate 3 ML BID 09/27 1000 AC 09/30 INH 0900 Albuterol Sulfate 2 PUF Q4 PRN 09/26 2044 AC INH Albuterol Sulfate 2 PUF Q4-6 PRN PRN 09/26 1929 AC INH Aspirin 81 MG DAILY 09/26 1923 AC 09/30 PO 1027 Duloxetine HCl 60 MG DAILY 09/26 192 AC 09/30 PO 1027 Ferrous Sulfate 325 MG DAILY 09/27 999 AC 09/30 PO 1027 Fish Oil 1,050 MG DAILY 09/27 1000 AC 09/30 PO 1028 Folic Acid 1 MG DAILY 09/27 1000 AC 09/30 PO 1027 Heparin Sodium 5,000 UNIT Q8 09/26 2199 AC 09/30 (Porcine) SC 0552 Ibuprofen 400 MG ONCE ONE 09/30 1045 CAN PO 09/30 1046 Ipratropium [place] 2.5 ML Q8 PRN 09/26 2044 AC INH Mesalamine 1,600 MG TID 09/26 2199 AC 09/30 PO 1027 Methotrexate 10 MG QTHURS 10/02 1000 AC PO Nicotinic Acid 500 MG DAILY 09/27 1000 AC 09/30 PO 1028 Oxycodone/ 1 TAB ONCE ONE 09/30 1045 DC 09/30 Acetaminophen PO 09/30 1046 1047 Patient Medication 1 ED .STK-MED ONE 09/29 1346 DC Teaching ED 09/29 1347 Prednisone 5 MG DAILY 09/28 999 AC 09/30 PO 1027 Ropinirole HCl 4 MG AT BEDTIME 09/27 0045 AC 09/29 PO 1941 Results Last 24 Hours of Lab Results: Laboratory Tests 09/30 09/30 0700 0600 Hematology CBC w Diff NO MAN DIFF REQ WBC (4.8 - 10.8 /CUMM) 20.3 H RBC (4.20 - 5.40 /CUMM) 4.99 Hgb (12.0 - 16.0 G/DL) 16.0 Hct (37 - 47 %) 47.3 H MCV (81.0 - 99.0 FL) 94.9 MCH (27.0 - 31.0 PG) 32.0 H RDW (11.5 - 14.5 %) 17.2 H Plt Count (130 - 400 /CUMM) 390 MPV (7.4 - 10.4 FL) 9.0 Gran % (42.2 - 75.2 %) 81.1 H Lymphocytes % (20.5 - 51.1 %) 9.3 L Monocytes % (1.7 - 9.3 %) 9.4 H Eosinophils % (0 - 5 %) 0.1 Basophils % (0.0 - 2.0 %) 0.1 Absolute Granulocytes (1.4 - 6.5 /CUMM) 16.5 H Absolute Lymphocytes (1.2 - 3.4 /CUMM) 1.9 Absolute Monocytes (0.10 - 0.60 /CUMM) 1.9 H Absolute Eosinophils (0.0 - 0.7 /CUMM) 0 Absolute Basophils (0.0 - 0.2 /CUMM) 0 PUBS MCHC (33.0 - 37.0 G/DL) 33.8 Miscellaneous Flow Cytometry Specimen Pending Recent Imaging Studies: Echocardiogram 09/29/2016: 1. Normal EF of 70% with impaired LV relaxation. 2. Moderate left ventricular hypertrophy. 3. Trace tricuspid regurgitation. Assessment/Plan Assessment/Recommendations: Ms. Garcia is a 71 year-old female with history of renal cell carcinoma s/p right radical nephrectomy (04/2011), COPD, CAD, SLE, Crohn's, and arthritis who presents with dysnpea with exertion. Chest CTA is negative. She was recently on prednisone and methotrexate. Cardiology and rheumatology are seeing the patient. She is currently being work up for COPD exacerbation, URI, and CAD. She is on prednisone and methotrexate currently. Her leukocytosis have been persistent but fluctuation since at least 04/2011. She has had significant increase in leukocytosis with infections and hospitalization in the past. Most recently her WBC has been elevated in the 20,000s. She has been on prednisone more recently. Her differentials have been relatively normal except for a slightly elevated monocytes percentage previously. Chronic inflammatory state can cause her to have leukocytosis such as Crohn's and SLE. Prednisone usage may also contribute to the increase. Because of the persistent nature to the leukocytosis, flow cytometry may be useful to evaluate any underlying malignancy process. She may ultimately need bone marrow biopsy for definitive diagnosis if any abnormality is noted. Recommendations: 1. Follow flow cytometry for leukemia/lymphoma evaluation 2. Follow up as outpatient Please call [phone] with any questions or concerns. Problem List: 1. Leukocytosis 2. Inflammatory bowel disease 3. SLE (systemic lupus erythematosus)
--- NOTE | 2016-09-30 11:40 | Cons- Pulmonary ---
General Information and HPI Consulting Request Date of Consult: 09/30/16 Requested By: fior Reason for Consult: Shortness of breath History of Present Illness: Patient is 76-year-old woman distant smoker with normal pulmonary function tests in the past admitted with progressive shortness of breath. She has a history of lupus on low-dose methotrexate and low-dose prednisone. Family reports slowly progressive shortness breath which is accelerated over the past 3 weeks. She has nonproductive cough denies wheezing or chest pain she's had no hemoptysis. Evaluation to date is included a negative CT angiogram as well as cardiac ultrasound without evidence of pulmonary hypertension she has felt better since hospitalized patient was recently hospitalized was thought to be lower extremity vasculitis for which she was raised on prednisone and had an accompanying 20 pound weight gain Allergies/Medications Allergies: Coded Allergies: Iodinated Contrast Media - Oral and (Iodinated Contrast Media - IV Dye) ( Intermediate, CAT SCAN DYE RED, FLUSHING, FEELING HOT, RASH 02/28/16) lactose (LACTOSE INTOLERANT 09/26/16) Home Med List: Albuterol Sulfate (Proair Hfa) 90 MCG HFA.AER.AD 2 PUF INH Q4-6 PRN PRN COPD (Reported) Ascorbic Acid/Calcium (Maura-C W/Kim Hips 500 MG-100 MG) 1 TAB TAB 500 MG PO DAILY VITAMIN (Reported) Aspirin (Children's Aspirin) 81 MG TAB 1 TAB PO DAILY HEART HEALTH (Reported) Aspirin/Acetaminophen/Caffeine (Excedrin Extra Strength Caplet) 250 MG-250 MG-65 MG TABLET 2 TAB PO PRN HEADACHE (Reported) Cetirizine HCl (Zyrtec) 10 MG TABLET 1 TAB PO DAILY ALLERGIES (Reported) Cholecalciferol (Vitamin D3) (Vitamin D) 1,000 UNIT CAPSULE 1 TAB PO AD SUPPLEMENT (Reported) Cyanocobalamin (Vitamin B-12) 1,000 MCG TAB 1 TAB PO DAILY SUPPLEMENT ( Reported) Cyclobenzaprine HCl (Unknown Strength) TABLET (Unknown Dose) UNKNOWN ( Reported) DULOXETINE HCL (Cymbalta) 60 MG ECC 1 CAP PO DAILY DEPRESSION (Reported) Ferrous Sulfate (IRON) 325 MG (65 MG IRON) TABLET 1 TAB PO DAILY SUPPLEMENT ( Reported) Folic Acid 1 MG TABLET 1 TAB PO DAILY SUPPLEMENT (Reported) Krill Oil/[place]-3/Dha/Epa ([facility]vs [place]-3 Krill Oil 300 Sfgl) (Unknown Strength) CAPSULE (Unknown Dose) PO DAILY SUPPLEMENT (Reported) Mesalamine (Asacol Hd) 800 MG TCP 2 TAB PO TID CROHNS (Reported) Methotrexate 2.5 MG TABLET 4 TAB PO QTHURS LUPUS (Reported) Metoprolol Tartrate 50 MG TABLET 1 TAB PO DAILY HTN (Reported) Niacin (Niacin Time Release) [address] 500 MG PO DAILY HEART (Reported) Prednisone 5 MG TABLET 7.5 MG PO DAILY SKIN-LUPUS (Reported) Rabeprazole Sodium (Aciphex 20MG) 20 MG TAB 20 MG PO BID ACID REFLUX ( Reported) Ropinirole HCl (Ropinirole ER) 4 MG TAB.ER.24H 1 TAB PO QPM RESTLESS LEGS ( Reported) Review of Systems Review of Systems Constitutional: Denies: chills, diaphoresis, fever. Cardiovascular: Denies: chest pain, edema. Respiratory: Reports: cough, short of breath. Denies: hemoptysis, sputum production, wheezing. GI: Denies: abdominal pain, diarrhea, melena. Past History Travel History Traveled to [place] past 21 day No Medical History Blood Transfusion Hx: No Neurological: migraine, restless leg syndrome EENT: allergies, CATARACT REMOVAL BOTH EYE Cardiovascular: CAD, hyperlipidemia, NSTEMI (2 YEARS AGO) Respiratory: COPD, obstructive sleep apnea, USES CPAP AT TIMES Gastrointestinal: Crohn's disease, diverticulitis, GERD, lactose intolerance Hepatic: NONE Renal: nephrectomy (right), urinary incontinence, RCC Musculoskeletal: osteoarthritis, SPONDYLOLISTHESIS BONE SPUR- R HEEL R KNEE TORN MENISCUS Psychiatric: anxiety, depression Endocrine: LUPUS Blood Disorders: NONE Cancer(s): renal cancer SCRUMMASTER/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 Home Who Do You Live With? self Services at Home: None Primary Language: Danish Smoking Status: Former Smoker Living Will? yes Functional Ability ADLs Independent: dressing, eating, toileting, bathing. Ambulation: cane IADLs Independent: shopping, housework, finances, food prep, telephone, transportation , medication admin. Exam & Diagnostic Data Last 24 Hrs of Vital Signs/I&O Vital Signs Date Time Temp Pulse Resp B/P Pulse O2 O2 Flow FiO2 Ox Delivery Rate 09/30 899 94 Nasal 1.5L Cannula 09/30 0819 98.0 94 20 124/80 94 Nasal 1.0L Cannula 09/30 0800 96 Nasal 1.0L Cannula 09/30 0014 98.8 113 20 120/82 95 Nasal 1.0L Cannula 09/30 0000 Nasal 1.0L Cannula 09/29 1905 97 Nasal 2.0L Cannula 09/29 1607 97.7 113 20 116/76 95 Nasal 2.0L Cannula Intake & Output 09/30 1600 09/30 0809/30 0000 Intake Total Output Total 800 Balance -800 Output, Urine 800 Room air oxygen saturation is 93% HNT exam shows no jugular venous distention or adenopathy exam for chest shows very rare basilar crackles are no wheezes cardiac exam shows regular S1 and S2 without murmurs abdominal exam is soft nontender her extremities without edema or lesions. Last 48 Hrs of Labs/Marco: Laboratory Tests 09/30/16 0700: CBC w Diff NO MAN DIFF REQ, RBC 4.99, MCV 94.9, MCH 32.0 H, RDW 17.2 H, MPV 9.0, Gran % 81.1 H, Lymphocytes % 9.3 L, Monocytes % 9.4 H, Eosinophils % 0.1 , Basophils % 0.1, Absolute Granulocytes 16.5 H, Absolute Lymphocytes 1.9, Absolute Monocytes 1.9 H, Absolute Eosinophils 0, Absolute Basophils 0, PUBS MCHC 33.8 09/30/16 0600: Flow Cytometry Specimen Pending 09/29/16 0609: CBC w Diff NO MAN DIFF REQ, RBC 4.81, MCV 94.2, MCH 31.5 H, RDW 17.0 H, MPV 8.8, Gran % 83.0 H, Lymphocytes % 8.8 L, Monocytes % 8.0, Eosinophils % 0, Basophils % 0.2, Absolute Granulocytes 18.3 H, Absolute Lymphocytes 1.9, Absolute Monocytes 1.8 H, Absolute Eosinophils 0, Absolute Basophils 0, PUBS MCHC 33.5 Assessment/Plan Impression/Plan: 76-year-old woman distant smoker history of normal pulmonary function testing admitted with progressive shortness of breath in the setting of SLE on methotrexate and prednisone. Pulmonary thromboembolism and pulmonary hypertension appear to be have adequately excluded. The differential diagnosis for shortness breath includes lupus associated diaphragmatic dysfunction. This is suggested because of low lung volumes and bibasilar densities thought to probably be atelectasis. Occult interstitial lung disease associated with lupus or drug-induced lung disease associated with methotrexate though her course has been short. Recommendations: Assess oxygenation with ambulation. If O2 sats remained greater than 90% DC 02. Patient requires high resolution CT scan of her chest without contrast. If this is unrevealing diaphragmatic fluoroscopy would be of interest to assess diaphragmatic motion. Pulmonary function tests should be obtained to assess lung volumes flow rates and diffusion capacity. The tests can be performed as outpatient Consult Acknowledgment - Thank you for your consult request.
--- NOTE | 2016-09-30 15:11 | PN- Cardiology ---
Subjective Subjective: * Patient ambulated with less shortness of breath. * WBC's remain elevated. * Blanche's echo shows normal RV and LV function with normal RV pressures. Objective Vital Signs and I&Os Vital Signs Date Time Temp Pulse Resp B/P Pulse O2 O2 Flow FiO2 Ox Delivery Rate 09/30 899 94 Nasal 1.5L Cannula 09/30 0819 98.0 94 20 124/80 94 Nasal 1.0L Cannula 09/30 08 96 Nasal 1.0L Cannula 09/30 0014 98.8 113 20 120/82 95 Nasal 1.0L Cannula 09/30 0000 Nasal 1.0L Cannula 09/29 1905 97 Nasal 2.0L Cannula 09/29 1607 97.7 113 20 116/76 95 Nasal 2.0L Cannula Intake & Output 09/30 1600 09/30 0000 09/29 1600 09/29 0000 Intake Total 1415 118 870 5146 Output Total 750 800 Balance 665 -800 479 483 7740 Intake, IV 745 10 Intake, Oral 670 547 883 9676 Number 0 1 1 Bowel Movements Output, Urine 750 800 Physical Exam: General: WD/obese female in NAD; alert and oriented x 3 Neck: no JVD, no carotid bruit Heart: RRR w/o murmur, split S2 Lungs: clear bilaterally Extremities: no edema, venous stasis changes bilaterally Assessment/Plan Assessment/Plan * This patient has poorly inflated lungs on X-ray that may be related to diaphragmatic weakness of paralysis although I suspect her centripetal obesity is the likely cause of this. Nevertheless, I think a radiologic sniff test is reasonable to pursue to rule out diaphragmatic paralysis. * Interstitial lung disease is also a possibility and a high resolution chest CT should be purused. * Agree with outpatient workup of this patient's elevated WBC count. Continue telemetry? No
[2016-09-30 16:21] VITALS: BP 124/70
--- NOTE | 2016-09-30 22:14 | NUR ---
NURSING NOTE: PATIENT LEFT FLOOR VIA STRETCHER WITH DISTRIBUTION TO CT SCAN. PATIENT A/OX3, DENIES PAIN. ROOM AIR. WILL AWAIT RETURN.
--- NOTE | 2016-09-30 22:15 | NUR ---
NURSING NOTE: PATIENT RETURNED TO FLOOR VIA STRETCHER WITH DISTRIBUTION FROM CT AT THIS TIME. PATIENT A/OX3, DENIES PAIN. WILL CONTINUE TO MONITOR.
--- NOTE | 2016-09-30 23:05 | CT SCAN REPORT ---
EXAMINATION: CT CHEST WITHOUT CONTRAST CLINICAL INFORMATION: Persistent dyspnea. Interstitial lung disease. COMPARISON: Multiple priors, most recently 09/26/2016 TECHNIQUE: Multidetector volumetric CT imaging of the chest was done. Axial MIP volume rendering provided. Sagittal and coronal reformatted images were obtained. DLP: 669 mGy-cm. FINDINGS: LUNGS: The central airways are patent. Mild bronchiectasis is noted bilaterally. There is no dense consolidation. Somewhat heterogeneous appearance of the lungs on expiratory imaging suggest areas of air trapping. There is minimal bilateral lower lobe subpleural reticulation. No honeycombing. No significant interlobular septal thickening. Pulmonary nodules are present. 1. Right upper lobe anterior 0.5 cm nodule on image 136/480. Comparison to prior studies is limited, as the studies performed prior to 2014 had no thin slice comparison imaging. The 08/15/2015 study demonstrated significant airspace disease throughout the right upper and middle lobes, masking underlying pulmonary nodules. There is faint suggestion of a nodule on the study from 09/26/2013 on image 24/57 which may correspond to this nodule. 2. Elongated opacity measuring 0.9 x 0.3 cm on image 166/480 abutting the right major fissure within the right lower lobe. This is unchanged from 08/15/2015. Visualization is limited on the more remote prior studies, but this is likely present. 3. Lingular 0.3 cm nodule on image 183/480. There was motion on the previous study from 2013 in this area, limiting comparison. MEDIASTINUM: The heart is normal in size. Coronary artery calcifications are present. No pericardial effusion. No mediastinal lymphadenopathy. Thyroid nodules are again noted. Moderate hiatal hernia. PLEURA: There is no pleural effusion. No pleural mass or thickening. AXILLA: No lymphadenopathy. UPPER ABDOMEN: Surgical clips are seen adjacent to the right lobe of the liver. This could be associated with a right nephrectomy. OSSEOUS STRUCTURES: No acute or suspicious osseous abnormality. Multilevel degenerative changes of the spine. IMPRESSION: 1. Mild bronchiectasis. Scattered areas of air trapping. 2. Minimal subpleural reticulation bilaterally can be seen with early interstitial lung disease. No honeycombing. 2. Pulmonary nodules are visualized. Comparison to prior imaging is limited due to issues raised above in the body of the report. Twelve-month follow-up is suggested therefore for reevaluation.
[2016-09-30 23:51] VITALS: BP 146/84
--- NOTE | 2016-10-01 06:21 | PN- Housestaff ---
ANNALEE HUFF,LOYD 10/01/16 0620: Subjective Follow-up For: COPD exacerbation Subjective: Patient seen and examined at bedside. She is resting comftably and satting sell on RA. Feels ready to be discharged. Denies headache, fever, chills, chest pain, palpitations, nausea, vomiting, diarrhea, blurred/double vision, dizziness/ lightheadedness. Review of Systems Constitutional: Reports: see HPI. Objective Last 24 Hrs of Vital Signs/I&O Vital Signs Date Time Temp Pulse Resp B/P Pulse O2 O2 Flow FiO2 Ox Delivery Rate 10/01 1006 93 Room Air 10/01 1004 94 Room Air 10/01 0714 97.6 82 18 126/72 92 Room Air 09/30 2351 98.7 112 19 146/84 90 Room Air 09/30 1945 95 Room Air Intake & Output 10/01 1600 10/01 0800 10/01 0000 Intake Total 300 200 Output Total Balance 300 200 Intake, Oral 300 200 Physical Exam General Appearance: Alert, Oriented X3, Cooperative, No Acute Distress Other Physical Findings: Skin No Rashes, No Breakdown, No Significant Lesion HEENT Atraumatic, PERRLA, EOMI, Mucous Membr. moist/pink Neck Supple, No JVD, No LAD Cardiovascular Regular Rate, Normal S1, Normal S2, No Murmurs, Gallops, Rubs Lungs Clear to Auscultation, Normal Air Movement Abdomen Normal Bowel Sounds, Soft, No Tenderness Neurological Normal Speech, Sensation Intact Extremities No Clubbing, No Cyanosis, No Edema, Normal Pulses, No Tenderness Current Medications: Current Medications Sig/Cherry Start time Last Medication Dose Route Stop Time Status Admin Acetaminophen 650 MG Q6-PRN PRN 09/30 1045 DCD PO Albuterol Sulfate 3 ML BID 09/27 1000 DCD 10/01 INH 0954 Albuterol Sulfate 2 PUF Q4 PRN 09/26 2044 DCD INH Albuterol Sulfate 2 PUF Q4-6 PRN PRN 09/26 193 DCD INH Aspirin 81 MG DAILY 09/26 1923 DCD 10/01 PO 1002 Duloxetine HCl 60 MG DAILY 09/26 1924 DCD 10/01 PO 1005 Ferrous Sulfate 325 MG DAILY 09/27 1000 DCD 10/01 PO 1005 Fish Oil 1,050 MG DAILY 09/27 999 DCD 09/30 PO 1028 Folic Acid 1 MG DAILY 09/27 1000 DCD 10/01 PO 1005 Heparin Sodium 5,000 UNIT Q8 09/26 2200 DCD 10/01 (Porcine) SC 0628 Ipratropium [place] 2.5 ML Q8 PRN 09/26 2045 DCD INH Mesalamine 1,600 MG TID 09/26 2200 DCD 10/01 PO 1002 Methotrexate 10 MG QTHURS 10/02 1000 DCD PO Nicotinic Acid 500 MG DAILY 09/27 1000 DCD 10/01 PO 1005 Oxycodone/ 1 TAB Q6P PRN 10/01 0845 DCD 10/01 Acetaminophen PO 10/04 220 1026 Oxycodone/ 1 TAB ONCE ONE 09/30 2300 DC 09/30 Acetaminophen PO 09/30 2301 2312 Patient Medication 1 ED .STK-MED ONE 10/01 1339 DC Teaching ED 10/01 1340 Prednisone 5 MG DAILY 09/28 1000 DCD 10/01 PO 1005 Ropinirole HCl 4 MG AT BEDTIME 09/27 0045 DCD 09/30 PO 2002 Last 24 Hrs of Lab/Marco Results Last 24 Hrs of Labs/Mics: Laboratory Tests 10/01/16 0643: CBC w Diff NO MAN DIFF REQ, RBC 4.71, MCV 93.8, MCH 31.7 H, RDW 17.1 H, MPV 8.9, Gran % 79.1 H, Lymphocytes % 7.6 L, Monocytes % 13.0 H, Eosinophils % 0.2, Basophils % 0.1, Absolute Granulocytes 12.9 H, Absolute Lymphocytes 1.2, Absolute Monocytes 2.1 H, Absolute Eosinophils 0, Absolute Basophils 0, PUBS MCHC 33.8 Assessment/Plan Assessment: Ms. Garcia is a 75 year-old lady, active smoker (1 PPD) with a past medical history significant for COPD not on home oxygen, CAD, HLD, SLE on MTX and prednisone, Chron's disease on Asacol, varicose veins, anxiety, renal cancer status post nephrectomy and recurrent cellulitis of bilateral lower extremities, who presents with progressively worsening dyspnea, most likely 2/2 COPD exacerbation. # COPD exacerbation PE ruled out on CTA chest. No evidence of pneumonia. Patient has leukocytosis but probably 2/2 steroid use. She has no signs of infection otherwise. Normal EKG with no acute ST or T wave changes. * Cont prednisone 5mg PO QD (do not further decrease as per rheum rec) * TRC nebulizer treatment as needed * Oxygen support to maintain staturation above 92% * Monitor for signs of infection * Cont home meds Atrovent and Ventolin * Pulmonology & cardio consulted, follow recs * Follow echo # Persistent leukocytosis Most likely steroid induced. Small suspicion that it may be 2/2 bronchitis or pneumonia. * Oncology consulted, appreciate recs #Coronary artery disease * Continue metoprolol and aspirin at home doses #Hyperlipidemia * Cont home dosage of Niacin #Inflammatory bowel disease * Continue Asacol #GERD * Continue PPI #Anxiety/depression * Continue home dosage of duloxetine - Diet: Regular diet - Pain pathway: Mild - DVT prophylaxis: SQ heparin - Code: Full Problem List: 1. COPD exacerbation 2. Dyspnea 3. SLE (systemic lupus erythematosus) 4. Anxiety 5. GERD (gastroesophageal reflux disease) Pain Ratin Pain Location: 0 Pain Goal: Remain pain free Pain Plan: Mild pathway Tomorrow's Labs & Rationales: NONE - discharge YAMILETH HUFF,YIN 10/01/16 1410: Attending MD Review Statement Attending Statement Attending MD Statement: examined this patient, discuss w/resident/PA/DIANETICIST, agreed w/resident/PA/DIANETICIST, reviewed EMR data (avail), discussed with nursing, discussed with case mgmt, amended to note Attending Assessment/Plan: she is seen and examined. Resting comfortably and not in acute distress. No issues overnight. She continues to maintain saturation on room air with ambulation. She remains afebrile and hemodynamically stable. On examination her lungs are clear bilaterally. CT scan done yesterday suggest mild interstitial lung disease. This was reviewed with the pulmonary service. At this point patient medically stable to be discharged home. She will follow-up with the pulmonary service as an outpatient. She will also follow-up with the hematology service as an outpatient for further workup of her chronic leukocytosis.
[2016-10-01 07:14] VITALS: BP 126/72
[2016-10-01] MEDS ORDERED: PREDNISONE10 M2 PO (07:29)
--- NOTE | 2016-10-01 07:32 | Patient Discharge Instructions ---
Discharge Instructions General Discharge Information You were seen/treated for: COPD exacerbation Special Instructions: 1. Please follow up with Dr. Pacheco (drill operator pneumatic), Dr. Mayer (inside wirer) , Dr. Sevilla (missile control pilot), Dr. Mack (primary care and Dr. Gonzales ( sap gatherer) within a week of discharge. 2. Please follow up for a repeat CT chest with Dr. Pacheco within a year to assess the lung nodules that were incidentially found on the CT chest this admission. Acute Coronary Syndrome Inclusion Criteria At DC or during hospital stay patient has or had the following: ACS DIAGNOSIS No Discharge Core Measures Meds if any: Prescribed or Continued at Discharge Meds if any: NOT Prescribed or Continued at Discharge Congestive Heart Failure Inclusion Criteria At DC or during hospital stay patient has or had the following: CHF DIAGNOSIS No Discharge Core Measures Meds if any: Prescribed or Continued at Discharge Meds if any: NOT Prescribed or Continued at Discharge Cerebrovascular accident Inclusion Criteria At DC or during hospital stay patient has or had the following: CVA/TIA Diagnosis No Discharge Core Measures Meds if any: Prescribed or Continued at Discharge Meds if any: NOT Prescribed or Continued at Discharge Venous thromboembolism Inclusion Criteria VTE Diagnosis No VTE Type NONE VTE Confirmed by (Test) NONE Discharge Core Measures - Per Current guidelines, there needs to be overlap - treatment for the first 5 days of Warfarin therapy. - If discharged on Warfarin prior to 5 days of - overlap therapy, the patient will need to be - assessed for post discharge needs including - *Post discharge parental anticoagulation - *Warfarin and/or parental anticoagulation education - *Follow up date to check INR post discharge At least 5 days overlap therapy as Inpatient No Meds if any: Prescribed or Continued at Discharge Note: Overlap Therapy is Warfarin and Anticoagulant Meds if any: NOT Prescribed or Continued at Discharge
[2016-10-01 08:10] LABS: ABSOLUTE BASOPHIL COUNT 0 /CUMM (0.0-0.2); ABSOLUTE EOSINOPHIL COUNT 0 /CUMM (0.0-0.7); ABSOLUTE GRANULOCYTE CT 12.9 /CUMM (1.4-6.5); ABSOLUTE LYMPH COUNT 1.2 /CUMM (1.2-3.4); ABSOLUTE MONOCYTE COUNT 2.1 /CUMM (0.10-0.60); BASOPHIL % 0.1 % (0.0-2.0); EOSINOPHIL % 0.2 % (0-5); GRANULOCYTE % 79.1 % (42.2-75.2); HEMATOCRIT 44.1 % (37-47); MEAN CORPUSCULAR HGB 31.7 PG (27.0-31.0); MEAN CORPUSCULAR HGB CONC 33.8 G/DL (33.0-37.0); MEAN CORPUSCULAR VOLUME 93.8 FL (81.0-99.0); MEAN PLATELET VOLUME 8.9 FL (7.4-10.4); PLATELET COUNT 362 /CUMM (130-400); RBC DISTRIBUTION WIDTH 17.1 % (11.5-14.5); RED BLOOD CELL CT 4.71 /CUMM (4.20-5.40); WHITE BLOOD CELL COUNT 16.4 /CUMM (4.8-10.8)
--- NOTE | 2016-10-01 08:20 | PN- Pulmonary ---
Subjective HPI/Critical Care Issues: Patient feels improved and is now on room air. Chest CT shows pulmonary nodules which will require follow-up of which are old. There are minimal changes to suggest possible early interstitial lung disease. Objective Current Medications: Current Medications Sig/Cherry Start time Last Medication Dose Route Stop Time Status Admin Acetaminophen 650 MG ONCE ONE 09/30 1045 CAN PO 09/30 1046 Acetaminophen 650 MG Q6-PRN PRN 09/30 1045 AC PO Albuterol Sulfate 3 ML BID 09/27 1000 AC 09/30 INH 1945 Albuterol Sulfate 2 PUF Q4 PRN 09/26 2044 AC INH Albuterol Sulfate 2 PUF Q4-6 PRN PRN 09/26 193 AC INH Aspirin 81 MG DAILY 09/26 1923 AC 09/30 PO 1027 Duloxetine HCl 60 MG DAILY 09/26 1924 AC 09/30 PO 1027 Ferrous Sulfate 325 MG DAILY 09/27 1000 AC 09/30 PO 1027 Fish Oil 1,050 MG DAILY 09/27 1000 AC 09/30 PO 1028 Folic Acid 1 MG DAILY 09/27 1000 AC 09/30 PO 1027 Heparin Sodium 5,000 UNIT Q8 09/26 2199 AC 10/01 (Porcine) SC 0628 Ibuprofen 400 MG ONCE ONE 09/30 1045 CAN PO 09/30 1046 Ipratropium [place] 2.5 ML Q8 PRN 09/26 2044 AC INH Mesalamine 1,600 MG TID 09/26 2199 AC 09/30 PO 2002 Methotrexate 10 MG QTHURS 10/02 1000 AC PO Nicotinic Acid 500 MG DAILY 09/27 1000 AC 09/30 PO 1028 Oxycodone/ 1 TAB ONCE ONE 09/30 2300 DC 09/30 Acetaminophen PO 09/30 2301 2312 Oxycodone/ 1 TAB ONCE ONE 09/30 1045 DC 09/30 Acetaminophen PO 09/30 1046 1047 Prednisone 5 MG DAILY 09/28 1000 AC 09/30 PO 1027 Ropinirole HCl 4 MG AT BEDTIME 09/27 0045 AC 09/30 PO 2001 Vital Signs & I&O Last 24 Hrs of Vitals and I&O: Vital Signs Date Time Temp Pulse Resp B/P Pulse O2 O2 Flow FiO2 Ox Delivery Rate 10/01 713 97.6 82 18 126/72 92 Room Air 09/30 2351 98.7 112 19 146/84 90 Room Air 09/30 1945 95 Room Air 09/30 1621 98.0 108 20 124/70 90 09/30 0900 94 Nasal 1.5L Cannula Intake & Output 10/01 1600 10/01 0800 10/01 0000 Intake Total 300 200 Output Total Balance 300 200 Intake, Oral 300 200 Oxygen saturation on room air is 92% exam for chest shows clear lung kee cardiac exam shows normal S1 and S2 without murmurs Impression/Plan Impression/Plan Impression/Plan: 76-year-old woman distant smoker history of normal pulmonary function testing admitted with progressive shortness of breath in the setting of SLE on methotrexate and prednisone. Pulmonary thromboembolism and pulmonary hypertension appear to be have adequately excluded. The differential diagnosis for shortness breath includes lupus associated diaphragmatic dysfunction. This is suggested because of low lung volumes and bibasilar densities thought to probably be atelectasis. Occult interstitial lung disease associated with lupus or drug-induced lung disease associated with methotrexate though her course has been short. Recommendations: Respiratory status is improved with improved oxygenation with ambulation. Patient appears stable for discharge with remainder evaluation to be done as outpatient with follow-up in the office next week
[2016-10-01] MEDS ORDERED: PERCOCET 5-3251 EACH PO (08:46)
--- NOTE | 2016-10-01 12:06 | PN- Hematology ---
Subjective Subjective: She is doing better. She is off supplemental oxygen. She has no fever or chills. She has no new pain. Review of Systems: Constitutional: Denies: chills, fever. Cardiovascular: Denies: chest pain. Respiratory: Reports: short of breath, improved. Gastrointestinal: Denies: abdominal pain. Immunologic/Allergic: Denies: lymphadenopathy. All Other Systems: Reviewed and Negative Objective Vital Signs and I&Os Vital Signs Date Time Temp Pulse Resp B/P Pulse O2 O2 Flow FiO2 Ox Delivery Rate 10/01 0714 97.6 82 18 126/72 92 Room Air 09/30 2351 98.7 112 19 146/84 90 Room Air 09/30 1945 95 Room Air 09/30 1621 98.0 108 20 124/70 90 Intake & Output 10/01 1600 10/01 0800 10/01 0000 09/30 1600 09/30 0809/30 0000 Intake Total 300 200 720 Output Total 800 Balance 300 200 720 -800 Intake, IV Intake, Oral 300 200 720 Number 1 Bowel Movements Output, Urine 800 Physical Exam: General Appearance: awake, comfortable, obese Head: atraumatic, normal appearance Ears, Nose, Throat: moist mucus membranes Neck: supple Respiratory: normal breath sounds, on room air Cardiovascular: regular rate/rhythm Gastrointestinal: normal bowel sounds, soft, non-tender, no organomegaly Extremities: normal inspection, no edema Neurologic/Psych: alert, oriented x 3 Cranial Nerves: normal speech, PERRL Skin: normal color Lymphatic: no adenopathy. Current Medications: Current Medications Sig/Cherry Start time Last Medication Dose Route Stop Time Status Admin Acetaminophen 650 MG ONCE ONE 09/30 1045 CAN PO 09/30 1046 Acetaminophen 650 MG Q6-PRN PRN 09/30 1045 AC PO Albuterol Sulfate 3 ML BID 09/27 1000 AC 09/30 INH 1945 Albuterol Sulfate 2 PUF Q4 PRN 09/26 2044 AC INH Albuterol Sulfate 2 PUF Q4-6 PRN PRN 09/26 193 AC INH Aspirin 81 MG DAILY 09/26 1923 AC 09/30 PO 102 Duloxetine HCl 60 MG DAILY 09/26 1924 AC 09/30 PO 1027 Ferrous Sulfate 325 MG DAILY 09/27 999 AC 09/30 PO 1027 Fish Oil 1,050 MG DAILY 09/27 1000 AC 09/30 PO 1028 Folic Acid 1 MG DAILY 09/27 1000 AC 09/30 PO 1027 Heparin Sodium 5,000 UNIT Q8 09/26 2200 AC 10/01 (Porcine) SC 0628 Ibuprofen 400 MG ONCE ONE 09/30 1045 CAN PO 09/30 1046 Ipratropium [place] 2.5 ML Q8 PRN 09/26 2045 AC INH Mesalamine 1,600 MG TID 09/26 2200 AC 09/30 PO 2001 Methotrexate 10 MG QTHURS 10/02 1000 AC PO Nicotinic Acid 500 MG DAILY 09/27 1000 AC 09/30 PO 1028 Oxycodone/ 1 TAB Q6P PRN 10/01 0845 AC Acetaminophen PO 10/04 2200 Oxycodone/ 1 TAB ONCE ONE 09/30 2300 DC 09/30 Acetaminophen PO 09/30 2301 2312 Oxycodone/ 1 TAB ONCE ONE 09/30 1045 DC 09/30 Acetaminophen PO 09/30 1046 1047 Prednisone 5 MG DAILY 09/28 1000 AC 09/30 PO 1027 Ropinirole HCl 4 MG AT BEDTIME 09/27 0045 AC 09/30 PO 2001 Results Last 24 Hours of Lab Results: Laboratory Tests 10/01 09/30 0643 1115 Blood Gas Pulse Ox Probe Site LEFT MIDDLE FINGER ABG O2 Sat Calc/Sandeep (92.0 - 96.0 %) 94.0 O2 Delivery Method NC FiO2 1.5LPM Hematology CBC w Diff NO MAN DIFF REQ WBC (4.8 - 10.8 /CUMM) 16.4 H RBC (4.20 - 5.40 /CUMM) 4.71 Hgb (12.0 - 16.0 G/DL) 14.9 Hct (37 - 47 %) 44.1 MCV (81.0 - 99.0 FL) 93.8 MCH (27.0 - 31.0 PG) 31.7 H RDW (11.5 - 14.5 %) 17.1 H Plt Count (130 - 400 /CUMM) 362 MPV (7.4 - 10.4 FL) 8.9 Gran % (42.2 - 75.2 %) 79.1 H Lymphocytes % (20.5 - 51.1 %) 7.6 L Monocytes % (1.7 - 9.3 %) 13.0 H Eosinophils % (0 - 5 %) 0.2 Basophils % (0.0 - 2.0 %) 0.1 Absolute Granulocytes (1.4 - 6.5 /CUMM) 12.9 H Absolute Lymphocytes (1.2 - 3.4 /CUMM) 1.2 Absolute Monocytes (0.10 - 0.60 /CUMM) 2.1 H Absolute Eosinophils (0.0 - 0.7 /CUMM) 0 Absolute Basophils (0.0 - 0.2 /CUMM) 0 PUBS MCHC (33.0 - 37.0 G/DL) 33.8 Recent Imaging Studies: 1. Mild bronchiectasis. Scattered areas of air trapping. 2. Minimal subpleural reticulation bilaterally can be seen with early interstitial lung disease. No honeycombing. 2. Pulmonary nodules are visualized. Comparison to prior imaging is limited due to issues raised above in the body of the report. Twelve-month follow-up is suggested therefore for reevaluation. Assessment/Plan Assessment/Recommendations: Ms. Garcia is a 71 year-old female with history of renal cell carcinoma s/p right radical nephrectomy (04/2011), COPD, CAD, SLE, Crohn's, and arthritis who presents with dysnpea with exertion. Chest CTA is negative. She was recently on prednisone and methotrexate. Cardiology and rheumatology are seeing the patient. She is currently being work up for COPD exacerbation, URI, and CAD. She is on prednisone and methotrexate currently. Leukocytosis has been fluctuating since 2010. Leukocytosis is improving today. This is likely related to reactive process. Flow cytometry pending. Symptomatically, she is improving. Recommendations: 1. Follow flow cytometry for leukemia/lymphoma evaluation. 2. Follow up as outpatient, in 1 week to discuss flow cytometry results. Please call [phone] with any questions or concerns. Problem List: 1. Inflammatory bowel disease 2. COPD (chronic obstructive pulmonary disease) case management patient 3. SLE (systemic lupus erythematosus) 4. Leukocytosis
--- NOTE | 2016-10-01 18:47 | Discharge Summary ---
Visit Information Visit Dates Admission Date: 09/26/16 Discharge Date: 10/01/16 Hospital Course Course Attending Physician: LOUIS CALLAHAN MD Primary Care Physician: CEDRICK HUFF,[facility] Course: Ms. Garcia is a 75 year-old lady, active smoker (1 PPD) with a past medical history significant for COPD not on home oxygen, CAD, HLD, SLE on MTX and prednisone, Chron's disease on Asacol, varicose veins, anxiety, renal cancer status post nephrectomy and recurrent cellulitis of bilateral lower extremities, who presented with progressively worsening dyspnea, most likely 2/2 COPD exacerbation. # Acute hypoxic respiratory failure Patient was hypoxic on admission at 88%, requiring oxygen supplement. This was most likely due to COPD exacerbation with a porbable component of interstital lung disease (early stage), lupus associated diaphragmatic dysfunction, and diastolic heart failure. PE was ruled out on CTA chest. There was no evidence of pneumonia both clinically and radiographically. Patient had leukocytosis but this was reportedly chronic and attributed to steroid use. She had no signs of infection otherwise. EKG was grossly normal with no acute ST or T wave changes. Patient was initally resumed on home medication prednisone 7.5 mg PO QD, and then decreased to 5mg QD. Patient was also kept on home meds Atrovent and Ventolin. Patient received TRC nebulizer treatment as needed. Patient's dyspnea persisted, however. Pulmonology and cardiology were consulted to futher investigate the etiology underlying her dyspnea. Echocardiogram was done and showed normal EF of 70% with impaired LV relaxationb, moderate left ventricular hypertrophy, and trace TR. CT chest was done and showed mild bronchiectasis with scattered areas of air trapping and minimal subpleural reticulation bilaterally with early ILD but no honeycombing. Pulmonary nodules were incidentally found and patient was instructed to follow up for re-evaluation within a year. AHRF consequently resolved with no additional interventions. Patient was satting well on room air by the time of discharge. Patient was told to follow up outpatient with Dr. Pacheco for further workup with possible diaphragmatic fluoroscopy to assess diaphragmatic motion. She was also instructed to follow up with Dr. Mayer for ideal management of heart failure. # Persistent leukocytosis Most likely steroid induced. There was a small suspicion that it may be 2/2 bronchitis or pneumonia. Oncology was consulted and Dr. Gonzales recommend a flow cytometery to be followed up outpatient. #Coronary artery disease * Continued metoprolol and aspirin at home doses #Hyperlipidemia * Continued home dosage of Niacin. #Inflammatory bowel disease * Continued Asacol at home dosage. #GERD * Continued PPI. #Anxiety/depression * Continued home dosage of duloxetine. - Diet: Regular diet - Pain pathway: Mild - DVT prophylaxis: SQ heparin - Code: Full Allergies: Coded Allergies: Iodinated Contrast Media - Oral and (Iodinated Contrast Media - IV Dye) ( Intermediate, CAT SCAN DYE RED, FLUSHING, FEELING HOT, RASH 02/28/16) lactose (LACTOSE INTOLERANT 09/26/16) Disposition Summary Disposition Principal Diagnosis: COPD exacerbation Additional Diagnosis: Interstital lung disease Diastolic heart failure Discharge Disposition: home or self care Discharge Instructions General Discharge Information Code Status: Full Code Patient's Diet: Regular Patient's Activity: As tolerated Follow-Up Instructions/Appts: 1. Please follow up with Dr. Pacheco (director private music therapy agency), Dr. Mayer (loan processing supervisor) , Dr. Sevilla (coffee taster), Dr. Mack (primary care and Dr. Gonzales ( offset plate maker) within a week of discharge. 2. Please follow up for a repeat CT chest with Dr. Pacheco within a year to assess the lung nodules that were incidentially found on the CT chest this admission. Medications at Discharge Discharge Medications: Stop taking the following medications: Hydroxychloroquine Sulfate (Hydroxychloroquine Sulfate) 200 MG TABLET ORAL TWICE DAILY Qty = 60 Umeclidinium Brm/Vilanterol Tr (Anoro Ellipta 62.5-25 Mcg INH) 62.5 MCG-25 MCG/ ACTUATION BLST.W.DEV Inhale through mouth DAILY Prednisone (Prednisone) 5 MG TABLET ORAL DAILY Continue taking these medications: Rabeprazole Sodium (Aciphex 20MG) 20 MG TAB 20 Milligram ORAL TWICE DAILY Comments: NOT GIVEN DULOXETINE HCL (Cymbalta) 60 MG ECC 1 Capsule ORAL DAILY Comments: last given 12/01/15 @ 0930am Niacin (Niacin Time Release) [address] 500 Milligram ORAL DAILY Comments: last given 11/30/15 @ 1700pm Aspirin (Children's Aspirin) 81 MG TAB 1 Tablet ORAL DAILY Comments: last given 12/01/15 @ 930am Ascorbic Acid/Calcium (Maura-C W/Kim Hips 500 MG-100 MG) 1 TAB TAB 500 Milligram ORAL DAILY Comments: last given 12/01/15 @ 0930am Cyanocobalamin (Vitamin B-12) 1,000 MCG TAB 1 Tablet ORAL DAILY Comments: last given 12/01/15 @ 0930am Aspirin/Acetaminophen/Caffeine (Excedrin Extra Strength Caplet) 250 MG-250 MG-65 MG TABLET 2 Tablet ORAL as needed for HEADACHE Comments: NOT GIVEN IN HOSPITAL Mesalamine (Asacol Hd) 800 MG TCP 2 Tablet ORAL THREE TIMES DAILY Qty = 540 Comments: last given 12/01/15 @ 0930am Ropinirole HCl (Ropinirole ER) 4 MG TAB.ER.24H 1 Tablet ORAL Every night Days = 90 Comments: Last Taken: 07/21/16 Time: 10:00 PM Krill Oil/Avilla-3/Dha/Epa ([facility] Avilla-3 Krill Oil 300 Sfgl) (Unknown Strength) CAPSULE Unknown Dose ORAL DAILY Comments: NOT GIVEN IN HOSPITAL Cholecalciferol (Vitamin D3) (Vitamin D) 1,000 UNIT CAPSULE 1 Tablet ORAL As Directed Comments: Last Taken: 07/22/16 Time: 10:00 AM Cetirizine HCl (Zyrtec) 10 MG TABLET 1 Tablet ORAL DAILY Comments: NOT GIVEN IN HOSPITAL Metoprolol Tartrate (Metoprolol Tartrate) 50 MG TABLET 1 Tablet ORAL DAILY Comments: Last Taken: 07/22/16 Time: 10:00 AM Methotrexate (Methotrexate) 2.5 MG TABLET 4 Tablet ORAL EVERY THURSDAY Qty = 48 Comments: PER PT DAUGHTER Albuterol Sulfate (Proair Hfa) 90 MCG HFA.AER.AD 2 Puff Inhale through mouth EVERY 4-6 HOURS NEEDED as needed for COPD Qty = 8 Comments: PER PT DAUGHTER Cyclobenzaprine HCl (Cyclobenzaprine HCl) (Unknown Strength) TABLET Unknown Dose Qty = 30 Comments: PER PT DAUGHTER NOT TAKING Folic Acid (Folic Acid) 1 MG TABLET 1 Tablet ORAL DAILY Qty = 60 Comments: PER PT DAUGHTER Ferrous Sulfate (IRON) 325 MG (65 MG IRON) TABLET 1 Tablet ORAL DAILY Comments: PER PT DAUGHTER Start taking the following new medications: Prednisone (Prednisone) 10 MG TABLET 5 Milligram ORAL DAILY Days = 30 No Refills Oxycodone HCl/Acetaminophen (Percocet 5-325 MG Tablet) 5 MG-325 MG TABLET 1 Tablet ORAL THREE TIMES DAILY Qty = 12 No Refills Copies To: [place] HUFF,MAR Sanchez; CEDRICK HUFF,PHIL; RIVAS HUFF,JOSE; GEORGINA HUFF PhD, MAR Singh
== END 2016-10-01 12:00 | disposition home health service (06) | DRG 190 ==
LOC: ERH 10:14 → 2NB 17:17 → ERHI 17:17 → ENPENDDIS 17:17 → 2NB 17:17 → ERHI 20:29 → 2NB 20:34
PROVIDERS: Emergency Medicine; Student in an Organized Health Care Education/Training Program; ADMIT Internal Medicine
DX: J44.1 Chronic obstructive pulmonary disease with (acute) exacerbation (principal); J96.01 Acute respiratory failure with hypoxia; M32.9 Systemic lupus erythematosus, unspecified; Z72.0 Tobacco use; I25.10 Atherosclerotic heart disease of native coronary artery without angina pectoris; E78.5 Hyperlipidemia, unspecified; I11.9 Hypertensive heart disease without heart failure; Z85.528 Personal history of other malignant neoplasm of kidney; K58.9 Irritable bowel syndrome, unspecified
CPT/HCPCS: 2NBP; 36415; 82436; 88184; 93005; 93010; 93306; 96374; 96375; 97001-GP; 97110-GO; 97116-GO; 97162-GP; 97530-GO; J1200; J1644; J2930; J3490; J7512; J8610

== ENCOUNTER 2017-09-27 19:36 | Inpatient (IN) | payer OTHER, MEDICARE ==
[~2017-09-27] VITALS: Ht 157.5 cm; Wt 88.0 kg
[~2017-09-27 19:36] MED LIST changes: +ACEPHEN650 M1 PR; +ACETAMINOPHEN325 M2 PO; +ACIDOPHILUS1 EACH PO; +ALBUTEROL2.5 MG/3 M INH/SOL; +ALL DAY ALLERGY10 MG PO; +ANORO ELLIPTA1 EACH INH; +ASACOL HD800 M1 PO; +ASPIRIN EC81 M1 PO; +BENZONATATE100 M1 PO; +BUSPIRONE HCL7.5 M1 PO; +BUTALBIT-ACETA1 EACH PO; +CALCIUM + VITA1 EAC1 PO; +CEFAZOLIN2 GM/50 M1 IV; +CIPRO500 M1 PO; +CYCLOBENZAPRINE10 M1; +CYCLOBENZAPRINE10 M1 PO; +CYMBALTA60 M1 PO; -CYMBALTA60 MG PO; +DIGESTIVE ADVA1 EACH PO; +DULCOLAX10 M1 RC; +FLAGYL250 M1 PO; +FLEET ENEMA133 ML RC; +FLOVENT HFA12 G1 INH; +FOLIC ACID1 M1 PO; +GUAIFENESIN DM S5 ML PO; +IRON325 M3 PO; +KETOCONAZOLE15 GM TOP; +LASIX40 M1 PO; +METHOTREXATE2.5 M2 PO; +MILK OF MA400 MG/52 PO; +MOMETASONE FURO45 GM TOP; +NARCAN4 MG NAS; +NIACIN500 M6 PO; +NIASPAN500 M1 PO; +OXYCODONE HCL5 M1 PO; +PREDNISONE5 M1 PO; +PROAIR HFA8.5 GM INH; +RABEPRAZOLE SOD20 M1 PO; +SULFAMETHOXAZO1 EAC1; +TYLENOL WITH C1 EACH PO; +VITAMIN B-121000 MC3 PO; +VITAMIN C1000 M4 PO; +VITAMIN D5000 UNIT PO; +[UNRECOGNIZED DRUG - OTHER] PO
--- NOTE | 2017-09-27 20:11 | ED GI/GU/ABDOMINAL COMPLAINT ---
History of Present Illness General Chief Complaint: General Adult Stated Complaint: "ABD PAIN, N+V+D" Source: patient, family, old records Exam Limitations: no limitations Vital Signs & Intake/Output Vital Signs & Intake/Output Vital Signs Date Time Temp Pulse Resp B/P B/P Pulse O2 O2 Flow FiO2 Mean Ox Delivery Rate 09/29 0941 86 116/72 09/29 0456 98.0 86 20 112/70 94 Room Air 09/28 2234 98.4 68 20 122/64 95 Room Air 09/28 2000 98.0 73 20 92/58 94 Room Air 09/28 1901 96.8 68 18 112/58 94 Room Air 09/28 1752 116/57 09/28 1624 88 104/50 09/28 1544 976.0 09/28 1519 95 18 82/50 95 Room Air ED Intake and Output 09/29 0000 09/28 1200 Intake Total 240 Output Total 200 Balance 40 Intake, Oral 240 Output, Urine 200 Patient 87.997 kg Weight Allergies Coded Allergies: Iodinated Contrast- Oral and IV Dye (Iodinated Contrast Media - IV Dye) ( Intermediate, CAT SCAN DYE RED, FLUSHING, FEELING HOT, RASH 02/28/16) lactose (LACTOSE INTOLERANT 09/26/16) Reconcile Medications Albuterol Sulfate (Proair Hfa) 90 MCG HFA.AER.AD 2 PUF INH 4XDAILY PRN COPD ( Reported) Ascorbic Acid (Vitamin C) 1,000 MG TABLET 1 TAB PO DAILY SUPPLEMENT (Reported ) Aspirin (Ecotrin*) 81 MG TABLET.DR 1 TAB PO DAILY HEART/BLOOD (Reported) Aspirin/Acetaminophen/Caffeine (Excedrin Extra Strength Caplet) 250 MG-250 MG-65 MG TABLET 2 TAB PO Q8H PRN HEADACHE (Reported) Bacillus Coagulans (Digestive Advantage) 250 MILLION CELL TAB.CHEW 1 TAB PO DAILY PROBIOTIC (Reported) Benzonatate 100 MG CAPSULE 100 MG PO TID cough Buspirone HCl 7.5 MG TABLET 1 TAB PO BID PRN ANXIETY (Reported) Butalb/Acetaminophen/Caffeine (Nezsiwxi-Vjbnkunxgfnpj-Yeun Cp) 50 MG-325 MG-40 MG CAPSULE 1 TAB PO Q6H PRN HILLS (Reported) Calcium Carbonate/Vitamin D3 (Calcium + Vitamin D Tablet) 600 MG-200 TABLET 1 TAB PO DAILY SUPPLEMENT (Reported) Cholecalciferol (Vitamin D3) (Vitamin D) 5,000 UNIT TABLET 2 TAB PO AD PRN supplement (Reported) Ciprofloxacin HCl (Cipro) 500 MG TABLET 1 TAB PO BID colitis Cyanocobalamin (Vitamin B-12) 1,000 MCG TABLET 1 TAB PO DAILY SUPPLEMENT ( Reported) Duloxetine HCl (Cymbalta) 60 MG CAPSULE.DR 1 CAP PO QHS DEPRESSION (Reported) Ferrous Sulfate (IRON) 325 MG (65 MG IRON) TABLET 1 TAB PO DAILY SUPPLEMENT ( Reported) Fluticasone Propionate (Flovent Hfa) 110 MCG/ACTUATION AER.W.ADAP 2 PUF INH BID COPD Folic Acid 1 MG TABLET 1 TAB PO DAILY SUPPLEMENT (Reported) Ketoconazole 2 % CREAM..G. 1 MCKINLEY TOP BID UNDER BREASTS/GROIN (Reported) apply to affected area(s) Krill Oil/Scobey-3/Dha/Epa ([facility] Sc[place]ey-3 Krill Oil 300 Sfgl) 300 MG-90 MG (27 MG- 45 MG) CAPSULE 1 TAB PO DAILY SUPPLEMENT (Reported) Lactobacillus Acidophilus (Acidophilus) 1 EACH CAPSULE 1 CAP PO QAM PROBIOTIC (Reported) Mesalamine (Asacol Hd) 800 MG TABLET.DR 2 TAB PO TID CROHNS (Reported) Methotrexate 2.5 MG TABLET 3 TAB PO BID ON LUPUS (Reported) Metoprolol Tartrate 50 MG TABLET 1 TAB PO DAILY HTN (Reported) Metronidazole (Flagyl) 250 MG TABLET 1 TAB PO Q8 colitis Niacin (Niaspan) 500 MG TAB.ER.24H 1 TAB PO DAILY CHOLESTEROL (Reported) [NU-ZYMES] LACTOSE INTOLERANT ENZYMES (Reported) Oxycodone HCl 5 MG TABLET 1 TAB PO Q6H PRN PAIN (Reported) Prednisone 5 MG TABLET 1 TAB PO DAILY SLE (Reported) Rabeprazole Sodium 20 MG TABLET.DR 1 TAB PO BID ACID REFLUX (Reported) Ropinirole HCl (Requip) 4 MG TABLET 1 TAB PO QPM RLS (Reported) Tylenol With Codeine (Tylenol With Codeine #3 Tablet) 300 MG-30 MG TABLET 1 TAB PO Q4-6 PRN PRN PAIN (Reported) Umeclidinium Brm/Vilanterol Tr (Anoro Ellipta 62.5-25 Mcg INH) 62.5 MCG-25 MCG/ ACTUATION BLST.W.DEV 1 PUFF INH DAILY SOB (Reported) Triage Note: PT TO ED C/O EXACERBATION OF CHRONIC LOW BACK PAIN AND KNEE PAIN AND LOW ABD PAIN WITH +DIARRHEA SINCE COLONOSCOPY ON 09/23. +N/V THIS AM. HAD NEG COLONOSCOPY. SEEN HERE FOR ABD PAIN ON 09/08, DX WITH GI BLEED/COLITIS. "GIVE ME THE STRONG STUFF" "I CAN'T TAKE THIS PAIN" Triage Nurses Notes Reviewed? yes ? n Is pt currently ? 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 Symptoms have been persistent since colonoscopy with no relief. No change in appetite, eating well. Also with worsening severity of chronic pain in her right knee and lower back, but of which have known severe disease. Patient was scheduled for knee MRI tomorrow. No other symptoms. Past History Travel History Traveled to [place] past 21 day No Medical History Any Pertinent Medical History? 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 Other Medical Hx: DISCOID LUPUS History of MRSA: No History of VRE: No History of CDIFF: No Influenza Vaccine: 06/20/17 Surgical History Surgical History: appendectomy, cataract removal, knee replacement (left), right nephrectomy left oophorectomy TONSILLECTOMY HEMORRHOID REMOVAL bilateral shoulder replacements Psychosocial History Who do you live with Patient/Self Services at Home Home Health Aide, Nursing, Physical Therapy What is your primary language Finnish Tobacco Use: Quit >30 days ago ETOH Use: denies use Illicit Drug Use: denies illicit drug use Family History Family History, If Any: FATHER FH: ALS (amyotrophic lateral sclerosis) MOTHER FH: heart failure BROTHER FH: hypertension Hx Contributory? No Review of Systems Review of Systems Constitutional: Reports: no symptoms. EENTM: Reports: no symptoms. Respiratory: Reports: no symptoms. Cardiovascular: Reports: no symptoms. GI: Reports: no symptoms. Genitourinary: Reports: no symptoms. Musculoskeletal: Reports: no symptoms. Skin: Reports: no symptoms. Neurological/Psychological: Reports: no symptoms. Hematologic/Endocrine: Reports: no symptoms. Immunologic/Allergic: Reports: no symptoms. All Other Systems: Reviewed and Negative Physical Exam Physical Exam General Appearance: well developed/nourished, mild distress Head: atraumatic, normal appearance Eyes: Bilateral: normal appearance. Ears, Nose, Throat, Mouth: hearing grossly normal, moist mucous membrane Neck: normal inspection, supple, full range of motion Respiratory: normal breath sounds, no respiratory distress Cardiovascular: regular rate/rhythm Gastrointestinal: soft, mildly tender diffusely, worse lower abdomen Rectal: deferred Back: normal inspection, normal range of motion Extremities: normal range of motion Neurologic/Psych: awake, alert, oriented x 3, normal mood/affect Skin: intact, normal color, warm/dry Core Measures ACS in differential dx? No Sepsis Present: No Sepsis Focused Exam Completed? No Progress Differential Diagnosis: AAA, AMI, appendicitis, biliary colic, bowel obstruction , colon cancer, cholecystitis, diverticulitis, ectopic , endometritis, esophageal varices, gastritis, hepatitis, hernia, hemorrhoids, ischemic bowel, inflamm bowel dis, intrauterine , kidney stone, Amarilis-Yue tear, ovarian cyst, ovarian torsion, pancreatitis, PID/cervicitis, peptic ulcer, PUD/ GERD, perforated viscous, SBO, threatened AB, UTI/pyelo Plan of Care: Orders Procedure Date/time Status C.DIFFICILE 09/29 1311 Active CBC WITHOUT DIFFERENTIAL 09/29 599 Complete BASIC ELECTROLYTES PLUS BUN&CR 09/29 06 Complete Therapeutic Activities 09/29 UNK Complete PT EVAL LOW COMPLEX 20 MIN 09/29 UNK Complete Gait Training 09/29 UNK Complete MRI-RT KNEE W/O EVERARDO 09/29 UNK Active Vital Signs 09/28 2102 Active Teach/Educate 09/28 2102 Active Pain Treatment and Response 09/28 2102 Active Nutritional Intake, Monitor 09/28 2102 Active Isolation 09/28 2102 Active Intake & Output 09/28 2102 Active Patient Care Conference 09/28 2102 Active Activity/Ambulation 09/28 2102 Active CULTURE,STOOL 09/28 1913 Active SPECIMEN TO BE OBTAINED 09/28 1913 Active C.DIFFICILE 09/28 1913 Active PT Evaluate & Treat 09/28 UNK Active Admit to inpatient 09/28 UNK Active MISSING MEDICATION FORM 09/28 UNK Active Current Medications Sig/Cherry Start time Last Medication Dose Stop Time Status Admin Methotrexate 7.5 MG BID 10/01 1000 AC (Methotrexate 2.5MG 10/01 220 Tab) Hydromorphone HCl 0.6 MG Q4 HRS NEEDED PRN 09/28 2345 AC 09/29 (Dilaudid) 0950 Ropinirole HCl 4 MG QPM 09/280 AC 09/28 (Requip) 2345 Hyoscyamine 0.125 MG TID PRN 09/28 1914 AC (Levsin) Polycarbophil 1,250 MG DAILY 09/28 1909 AC 09/29 (FiberCon) 0941 Aspirin Buffered 81 MG DAILY 09/28 1000 AC 09/29 (Ecotrin) 0941 Enoxaparin Sodium 40 MG DAILY 09/28 1000 AC 09/29 (Lovenox) 0942 Ferrous Sulfate 325 MG TID 09/28 1000 AC 09/29 (Feosol) 0941 Lactobacillus 1 CAP BID 09/28 1000 AC 09/29 Acidophilus 0941 (Probiotic) Metoprolol Tartrate 50 MG DAILY 09/28 1000 AC 09/29 (Lopressor) 0941 Prednisone 5 MG DAILY 09/28 1000 AC 09/29 0941 Nicotinic Acid 500 MG WITH MEALS 09/28 799 AC 09/28 (Niacin 500MG Tab) 1725 Omeprazole 20 MG DAILY AC 09/28 0700 AC 09/29 (Prilosec) 0554 Duloxetine HCl 60 MG AT BEDTIME 09/28 0045 AC 09/28 (Cymbalta) 2258 Mesalamine 800 MG TID 09/28 0030 AC 09/29 (Delzicol) 0940 Buspirone HCl 7.5 MG BID PRN 09/27 2356 AC (Buspar) Albuterol Sulfate 2 PUF Q4-6 PRN PRN 09/27 2345 AC (Ventolin) Acetaminophen 650 MG Q6P PRN 09/27 2215 AC 09/28 (Tylenol) 0014 Oxycodone HCl 5 MG Q6 PRN 09/27 2215 AC (Roxicodone) Laboratory Tests 09/29/17 0710: Anion Gap 12, Estimated GFR > 60, BUN/Creatinine Ratio 12.5, CBC w Diff NO MAN DIFF REQ, RBC 3.59 L, MCV 97.9, MCH 32.6 H, RDW 15.7 H, MPV 9.8, Gran % 78.3 H, Lymphocytes % 12.5 L, Monocytes % 8.7, Eosinophils % 0, Basophils % 0.5, Absolute Granulocytes 9.1 H, Absolute Lymphocytes 1.5, Absolute Monocytes 1.0 H, Absolute Eosinophils 0, Absolute Basophils 0.1, PUBS MCHC 33.3 Microbiology 09/29 1311 STOOL: Clostridium difficile Toxin A & B - ORD 09/28 1913 STOOL: Clostridium difficile Toxin A & B - COLB 09/28 1913 STOOL: Stool Culture - COLB Initial ED EKG: NSR, no ST T wave changes Departure Departure Disposition: STILL A PATIENT Condition: Stable Clinical Impression Primary Impression: Colitis Secondary Impressions: Back pain Referrals: Frederick HUFF,Russell (PCP/Family) Departure Forms: Customer Survey General Discharge Information Observation Note Spoke With: Saulo HUFF,Luis Physician Advisor Notified: RUSS PRESCOTT DO Place Patient In: Non-ED OBS Care Area Rationale for Observation: My rational for observation is as follows colitis extending from descending colon to rectum concerning for infectious vs Crohn's flare, will require inpatient observation for GI consult, IV antibiotics, pain management.
[2017-09-27 20:45] LABS: ABSOLUTE BASOPHIL COUNT 0 /CUMM (0.0-0.2); ABSOLUTE EOSINOPHIL COUNT 0 /CUMM (0.0-0.7); ABSOLUTE GRANULOCYTE CT 7.3 /CUMM (1.4-6.5); ABSOLUTE LYMPH COUNT 1.5 /CUMM (1.2-3.4); ABSOLUTE MONOCYTE COUNT 0.8 /CUMM (0.10-0.60); BASOPHIL % 0.3 % (0.0-2.0); EOSINOPHIL % 0 % (0-5); HEMATOCRIT 40.3 % (37-47); MEAN CORPUSCULAR HGB 32.4 PG (27.0-31.0); MEAN CORPUSCULAR HGB CONC 33.2 G/DL (33.0-37.0); MEAN CORPUSCULAR VOLUME 97.6 FL (81.0-99.0); MEAN PLATELET VOLUME 9.2 FL (7.4-10.4); PLATELET COUNT 328 /CUMM (130-400); RBC DISTRIBUTION WIDTH 16.4 % (11.5-14.5); RED BLOOD CELL CT 4.13 /CUMM (4.20-5.40); WHITE BLOOD CELL COUNT 9.7 /CUMM (4.8-10.8)
--- NOTE | 2017-09-27 20:57 | CT SCAN REPORT ---
EXAMINATION: CT ABDOMEN AND PELVIS WITHOUT CONTRAST CLINICAL INFORMATION: Profuse diarrhea x4 days status post colonoscopy. Rule out colitis. COMPARISON: 09/08/2017 TECHNIQUE: Multidetector volumetric imaging was performed from the superior aspect of the liver through the pubic symphysis. Sagittal and coronal reformatted images were obtained on the technologist's workstation. DLP: 757 mGy-cm FINDINGS: LUNG BASES: Minimal dependent atelectasis. Heart is normal in size. There is a moderate-sized sliding-type esophageal hiatal hernia. LIVER, GALLBLADDER, AND BILIARY TREE: The liver is normal in size, shape, and attenuation. No focal hepatic lesion or biliary ductal dilatation is present. The gallbladder is unremarkable with no evidence of radiopaque gallstones, gallbladder wall thickening, or obvious pericholecystic inflammatory changes. PANCREAS: Mild fatty replacement. No focal lesions are acute findings. Specifically, no evidence of pancreatitis or pancreatic ductal dilatation. SPLEEN: Unremarkable. ADRENAL GLANDS: Right adrenal gland appears surgically absent. Multiple surgical clips are noted in this region. Left adrenal gland is normal. KIDNEYS AND URETERS: Right kidney appears surgically absent. Left kidney is in normal in size with normal cortical thickness. No focal lesions. No nephrolithiasis or hydronephrosis. BLADDER: Unremarkable. GASTROINTESTINAL TRACT: Moderate-sized hiatal hernia. There is moderate to severe colonic diverticulosis in the descending and sigmoid colon. At the sigmoid colon, there is pericolonic fat stranding and mild colonic wall thickening, indicative of acute inflammation. There is mild fat stranding and wall thickening of the descending colon and rectum as well. No intraperitoneal free air or free fluid. ABDOMINAL WALL: There is a fat-containing umbilical hernia. No bowel involvement. LYMPH NODES: Multiple subcentimeter mesenteric and retroperitoneal lymph nodes are noted. No pathologic adenopathy. VASCULAR: Calcific atherosclerosis is present in the abdominal aorta and iliac arteries. No aneurysmal dilatation. PELVIC VISCERA: The uterus and adnexa are unremarkable. OSSEOUS STRUCTURES: There is moderate severe multilevel degenerative disc disease in the thoracolumbar spine with severe facet arthropathy in the lower lumbar spine and grade 2 anterolisthesis of L4 on L5. A superior endplate compression deformity is present at the T10 vertebral body with minimal loss of vertebral body height. A nondisplaced fracture is also present in the left parasymphyseal pubic bone. IMPRESSION: 1. Severe colonic diverticulosis. Inflammatory changes in the descending, sigmoid colon, and rectum are generalized without significant focality, potentially due to a mild generalized colitis. Focal diverticulitis is possible. No perforation or abscess. 2. Moderate-sized hiatal hernia.
--- NOTE | 2017-09-27 23:53 | History & Physical ---
Calderon HUFF,[facility] 09/27/17 5342: General Information and HPI MD Statement: I have seen and personally examined JEEVAN GARCIA and documented this H& P. The patient is a 77 year old F who presented with a patient stated chief complaint of [nausea and vomiting]. Source of Information: patient, family Exam Limitations: no limitations History of Present Illness: Mrs. 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 Patient was recently admitted to [facility] from September 04 to September 11, treated with ciprofloxacin and Flagyl for suspected colitis/diverticulitis. She finished the course of antibiotics and had a follow-up colonoscopy done on October 03. Patient thinks that the bowel prep for colonoscopy irritated her colon and since then she started having stool incontinence along with crampy lower abdominal pain that is 10/10 in intensity, constant and gets worse with laughing or with movement. Patient denies any fever/chills, sick contacts, any recent travels, unusual easy eating habits, blood in stools or urine, chest pain , palpitations, or shortness of breath. Patient also reports chronic lower back and right knee pain for which she has been using oxycodone without any relief. Reports numbness in her feet because of the back pain. She was supposed to get a knee MRI tomorrow for further assessment of the knee pain. Allergies/Medications Allergies: Coded Allergies: Iodinated Contrast- Oral and IV Dye (Iodinated Contrast Media - IV Dye) ( Intermediate, CAT SCAN DYE RED, FLUSHING, FEELING HOT, RASH 02/28/16) lactose (LACTOSE INTOLERANT 09/26/16) Home Med list Albuterol Sulfate (Proair Hfa) 90 MCG HFA.AER.AD 2 PUF INH 4XDAILY PRN COPD ( Reported) Ascorbic Acid (Vitamin C) 1,000 MG TABLET 1 TAB PO DAILY SUPPLEMENT (Reported ) Aspirin (Ecotrin*) 81 MG TABLET.DR 1 TAB PO DAILY HEART/BLOOD (Reported) Aspirin/Acetaminophen/Caffeine (Excedrin Extra Strength Caplet) 250 MG-250 MG-65 MG TABLET 2 TAB PO Q8H PRN HEADACHE (Reported) Bacillus Coagulans (Digestive Advantage) 250 MILLION CELL TAB.CHEW 1 TAB PO DAILY PROBIOTIC (Reported) Benzonatate 100 MG CAPSULE 100 MG PO TID cough Buspirone HCl 7.5 MG TABLET 1 TAB PO BID PRN ANXIETY (Reported) Butalb/Acetaminophen/Caffeine (Vvfegufl-Snqpltiphfdco-Ipbt Cp) 50 MG-325 MG-40 MG CAPSULE 1 TAB PO Q6H PRN HILLS (Reported) Calcium Carbonate/Vitamin D3 (Calcium + Vitamin D Tablet) 600 MG-200 TABLET 1 TAB PO DAILY SUPPLEMENT (Reported) Cholecalciferol (Vitamin D3) (Vitamin D) 5,000 UNIT TABLET 2 TAB PO AD PRN supplement (Reported) Ciprofloxacin HCl (Cipro) 500 MG TABLET 1 TAB PO BID colitis Cyanocobalamin (Vitamin B-12) 1,000 MCG TABLET 1 TAB PO DAILY SUPPLEMENT ( Reported) Duloxetine HCl (Cymbalta) 60 MG CAPSULE.DR 1 CAP PO QHS DEPRESSION (Reported) Ferrous Sulfate (IRON) 325 MG (65 MG IRON) TABLET 1 TAB PO DAILY SUPPLEMENT ( Reported) Fluticasone Propionate (Flovent Hfa) 110 MCG/ACTUATION AER.W.ADAP 2 PUF INH BID COPD Folic Acid 1 MG TABLET 1 TAB PO DAILY SUPPLEMENT (Reported) Ketoconazole 2 % CREAM..G. 1 MCKINLEY TOP BID UNDER BREASTS/GROIN (Reported) apply to affected area(s) Krill Oil/Prentiss-3/Dha/Epa (Cvs Prentiss-3 Krill Oil 300 Sfgl) 300 MG-90 MG (27 MG- 45 MG) CAPSULE 1 TAB PO DAILY SUPPLEMENT (Reported) Lactobacillus Acidophilus (Acidophilus) 1 EACH CAPSULE 1 CAP PO QAM PROBIOTIC (Reported) Mesalamine (Asacol Hd) 800 MG TABLET.DR 2 TAB PO TID CROHNS (Reported) Methotrexate 2.5 MG TABLET 3 TAB PO BID ON TH LUPUS (Reported) Metoprolol Tartrate 50 MG TABLET 1 TAB PO DAILY HTN (Reported) Metronidazole (Flagyl) 250 MG TABLET 1 TAB PO Q8 colitis Niacin (Niaspan) 500 MG TAB.ER.24H 1 TAB PO DAILY CHOLESTEROL (Reported) [NU-ZYMES] LACTOSE INTOLERANT ENZYMES (Reported) Oxycodone HCl 5 MG TABLET 1 TAB PO Q6H PRN PAIN (Reported) Prednisone 5 MG TABLET 1 TAB PO DAILY SLE (Reported) Rabeprazole Sodium 20 MG TABLET.DR 1 TAB PO BID ACID REFLUX (Reported) Ropinirole HCl (Requip) 4 MG TABLET 1 TAB PO QPM RLS (Reported) Tylenol With Codeine (Tylenol With Codeine #3 Tablet) 300 MG-30 MG TABLET 1 TAB PO Q4-6 PRN PRN PAIN (Reported) Umeclidinium Brm/Vilanterol Tr (Anoro Ellipta 62.5-25 Mcg INH) 62.5 MCG-25 MCG/ ACTUATION BLST.W.DEV 1 PUFF INH DAILY SOB (Reported) Past History Travel History Traveled to [place] past 21 day No Medical History Neurological: migraine, restless leg syndrome EENT: allergies, CATARACT REMOVAL BOTH EYE Cardiovascular: CAD, hypertension, hyperlipidemia, NSTEMI (2 YEARS AGO) Respiratory: COPD, obstructive sleep apnea, CPAP Gastrointestinal: Crohn's disease, diverticulitis, GERD, lactose intolerance Hepatic: NONE Renal: nephrectomy (right), urinary incontinence Musculoskeletal: osteoarthritis, SPONDYLOLISTHESIS BONE SPUR- R HEEL R KNEE TORN MENISCUS CHRONIC BACK PAIN SKIN LUPUS Psychiatric: anxiety, depression Endocrine: NONE Blood Disorders: NONE Cancer(s): renal cancer 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 self Services at Home: Home Health Aide, Nursing, Physical Therapy Primary Language: Estonian ETOH Use: denies use Illicit Drug Use: denies illicit drug use Living Will? yes Functional Ability ADLs Independent: dressing, eating, toileting, bathing. Ambulation: cane IADLs Independent: finances, telephone, medication admin. Needs Assist: shopping, housework, food prep, transportation. Review of Systems Review of Systems Constitutional: Reports: no symptoms. EENTM: Reports: no symptoms. Cardiovascular: Reports: no symptoms. Respiratory: Reports: no symptoms. GI: Reports: abdominal pain, nausea, vomiting. Genitourinary: Reports: no symptoms. Musculoskeletal: Reports: back pain, joint pain. Skin: Reports: no symptoms. Neurological/Psychological: Reports: headache. Hematologic/Endocrine: Reports: no symptoms. Immunologic/Allergic: Reports: no symptoms. All Other Systems: Reviewed and Negative Exam & Diagnostic Data Last 24 Hrs of Vital Signs/I&O Vital Signs Date Time Temp Pulse Resp B/P B/P Pulse O2 O2 Flow FiO2 Mean Ox Delivery Rate 09/28 0212 97.5 80 18 126/56 95 Room Air 09/27 2217 98.6 86 18 136/60 94 Room Air 09/27 2002 97.0 76 20 117/65 97 Room Air Intake & Output 09/28 0800 09/28 0000 09/27 1600 Intake Total 580 Output Total 300 Balance 280 Intake, IV 100 Intake, Oral 480 Output, Urine 300 Patient 194 lb Weight Weight Reported by Patient Measurement Method Physical Exam General Appearance Alert, Oriented X3, Cooperative, No Acute Distress Skin No Rashes, No Breakdown HEENT Atraumatic, PERRLA, EOMI, Mucous Membr. moist/pink Neck Supple, No JVD, No thryomegaly Cardiovascular Regular Rate, Normal S1, Normal S2 Lungs Clear to Auscultation, Normal Air Movement Abdomen Normal Bowel Sounds, Soft, No Tenderness Extremities No Clubbing, No Cyanosis, No Edema, Normal Pulses, Normal range of motion of bilateral knees, Pain with movement of the right knee. Rectal No Fissures, No Hemorrhoids, Normal rectal Tone Last 24 Hrs of Labs/Marco: Laboratory Tests 09/27/17 2352: Urine Color YEL, Urine Clarity CLEAR, Urine pH 6.5, Ur Specific [place] 1.015, Urine Protein NEG, Urine Ketones NEG, Urine Nitrite NEG, Urine Bilirubin NEG, Urine Urobilinogen 1.0, Ur Leukocyte Esterase NEG, Ur Microscopic EXAM NOT REQUIRED, Urine Hemoglobin NEG, Urine Glucose NEG 09/27/17 2205: Sodium Cancelled, Potassium Cancelled, Chloride Cancelled, Carbon Dioxide Cancelled, Anion Gap Cancelled, BUN Cancelled, Creatinine Cancelled, BUN/ Creatinine Ratio Cancelled, CBC w Diff Cancelled, WBC Cancelled, RBC Cancelled, Hgb Cancelled, Hct Cancelled, MCV Cancelled, MCH Cancelled, RDW Cancelled, Plt Count Cancelled, MPV Cancelled, PUBS MCHC Cancelled 09/27/172038: Anion Gap 14, Estimated GFR > 60, BUN/Creatinine Ratio 15.6, Glucose 105 H, Calcium 9.9, Total Bilirubin 1.1, Direct Bilirubin 0.4, AST 27, ALT 35, Alkaline Phosphatase 75, Troponin I 0.02, Total Protein 6.9, Albumin 4.1, Amylase 32, Lipase 45, CBC w Diff NO MAN DIFF REQ, RBC 4.13 L, MCV 97.6, MCH 32.4 H, RDW 16.4 H, MPV 9.2, Gran % 76.0 H, Lymphocytes % 15.5 L, Monocytes % 8.2, Eosinophils % 0, Basophils % 0.3, Absolute Granulocytes 7.3 H, Absolute Lymphocytes 1.5, Absolute Monocytes 0.8 H, Absolute Eosinophils 0, Absolute Basophils 0, PUBS MCHC 33.2 Microbiology 09/27 2351 URINE ROUT: Urine Culture - RECD 09/27 2351 STOOL: Clostridium difficile Toxin A & B - ORD 09/27 2351 STOOL: Stool Culture - ORD Diagnostic Data Other Results CT abdomen and pelvis showed: 1. Severe colonic diverticulosis. Inflammatory changes in the descending, sigmoid colon, and rectum are generalized without significant focality, potentially due to a mild generalized colitis. Focal diverticulitis is possible. No perforation or abscess. 2. Moderate-sized hiatal hernia. Assessment/Plan Assessment: Mrs. 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 A/P; 1. Abdominal pain with fecal incontinence and nausea and vomiting; - CT abdomen and pelvis shows Inflammatory changes in the descending, sigmoid colon, and rectum are generalized without significant focality, potentially due to a mild generalized colitis. Focal diverticulitis is possible. - But there is a low possibility of colitis or Crohn's flare as a recent colonoscopy done on September 23 is unremarkable. - Another possibility could be nerve compression on the back, with referred pain to the abdomen. CT findings were discussed with bridal sales consultant radiologist, which suggested severe canal narrowing at the level of L4 and L5. - Order MRI of lumbar and thoracic spine to rule out any compression - We will hold off on antibiotics for now - Check C. difficile in the setting of recent antibiotic use - Continue IV hydration. - Adequate Pain control - Lactic acid level - Zofran as needed for nausea and vomiting - GI consult in a.m. 2. Chronic medical conditions; - Continue home medications. DVT prophylaxis; subcutaneous Lovenox Patient is full code As Ranked By This Provider Problem List: 1. Back pain 2. Colitis Core Measures/Misc (06/07) Acute Coronary Syndrome ACS Diagnosis: No Congestive Heart Failure Congestive Heart Failure Diagnosis No Cerebrovascular Accident CVA/TIA Diagnosis: No VTE (View Protocol) VTE Risk Factors Age>40 No Mechanical VTE Prophylaxis d/t N/A MechProphylax Ordered No VTE Pharm Prophylaxis d/t NA PharmProphylax ordered Sepsis (View protocol) Sepsis Present: No Leatha Bui 09/28/17 0105: Resident Review Statement Resident Statement: examined this patient, discussed with international tax manager Other Findings: 77 year-old female with past medical history significant for CAD S/P NTEMI 2 yeas ago, HLD, Crohn's disease on mesalamine, 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 after being treated for diverticulitis/ colitis, discharged on ciprofloxacin/Flagyl ,presented to the ED for the evaluation of persistent lower abdominal pain. Patient finished a course of antibiotics. She had a follow-up colonoscopy by Dr. Mayes 09/23/17, results of which are insignificant.However after the procedure patient developed persistent lower abdominal cramping pain. Also reports fecal incontinence during urination. No change in appetite eating well. Has one episode of vomiting without any bile or blood today. Denies any diarrhea or constipation. Denies any chest discomfort or breathing palpitations. Patient also mentioned worsening right knee and back pain, she has seen orthopedics urgent recently and has been scheduled to get MRI of the right knee. Of the note she was recently treated with increased dose of prednisone to 10 mg( for 5 days) by Dr. Sevilla for lower extremity erythema, getting better now. Vitals on admission to be 97.0, pulse 76, respiratory rate 20, blood pressure 117/65 on room air On examination General Appearance:alert oriented 3, not in acute distress Skin: Grossly normal HEENT: PEERLA Neck: Supple, No JVD Cardiovascular: Regular Rate, Normal S1, Normal S2, systolic murmur in the second right intercostal space. Lungs: Equal breath sounds bilaterally on lung exam without any rhonchi or wheeze Abdomen: Normal Bowel Sounds, no abdominal tenderness Neurological: Normal Speech, Strength at 5/5 X4 Ext, Cranial Nerves 3-12 NL, Reflexes 2+, rectal tone intact no signs of saddle anesthesia Extremities: No evidence of edema/swelling in the lower extremities. Pertinent labs on admission no evidence of leukocytosis H&H stable, CT abdomen and pelvis showed: 1. Severe colonic diverticulosis. Inflammatory changes in the descending, sigmoid colon, and rectum are generalized without significant focality, potentially due to a mild generalized colitis. Focal diverticulitis is possible. No perforation or abscess. 2. Moderate-sized hiatal hernia. 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 CT abdomen and pelvis revealed possible colitis(inflammatory changes in the descending sigmoid and rectum). I discussed the imaging findings with the radiologist bridal sales consultant over the phone, he mentioned that there is severe spinal canal narrowing at the level of L4 and L5 with a component of compression of the cauda equina along with mild inflammatory changes in the descending colon and rectum. To rule out, nerve compression MRI of the lower lumbar spine should be done . Problem list Persistent lower abdominal pain and fecal incontinence(? Mild colitis)-History of Crohn's disease /colitis Rule out nerve compression. History of SLE History of COPD History of restless leg syndrome Plan Persistent lower abdominal pain / back pain and fecal incontinence(? Mild colitis-less likely/Rule out nerve compression). * Admit the patient for observation for 24-48 ours on [facility]. * Her persistent lower abdominal discomfort with fecal incontinence(rectal tone intact no signs of saddle anesthesia on exam )can be from possible nerve compression due to severe spinal narrowing at the level of L4 and L5. We'll obtain lumbar spine MRI with and without gadolinium to rule out any underlying no compression. Obtain neurosurgery consult in the morning. * Patient received one-time dose of IV cefazolin and Flagyl in the ED, will hold off any more antibiotics for now * Continue symptomatic management with IV fluids. * Adequate pain control with IV Dilaudid and IV Tylenol. * Obtain stool studies and C. difficile. * Inform Dr. Fuentes in the morning. * Continue home dose of mesalamine for Crohn's disease History of SLE * Continue by mouth prednisone 5 mg daily. * Continue the methotrexate patient takes on History of COPD * continue inhalers. History of restless leg syndrome * Continue ropinirole at night. History of anxiety and depression * Continue home medications. DVT prophylaxis with subcutaneous Lovenox Moderate to severe pain control with IV Dilaudid Patient is full code Luis Vernon 09/28/17 0314: Attending MD Review Statement Attending Statement Attending MD Statement: examined this patient, discuss w/resident/PA/HEAD BONE GRINDER, agreed w/resident/PA/HEAD BONE GRINDER, reviewed EMR data (avail), reviewed images, amended to note Attending Assessment/Plan: CC: Lower abdominal pain, diarrhea PMH: CAD S/P NSTEMI, HLD, Crohn's disease, right nephrectomy, small vessel vasculitis with SLE, COPD, KUSH on CPAP Patient came to ER for lower back pain, lower abdominal pain, diarrhea and knee pain since the colonoscopy done on September 23. Patient was admitted in hospital from September 08 to September 11 for bloody bowel movement, suspected secondary to ischemic colitis versus stercoral colitis and was prophylactically treated with ciprofloxacin and Flagyl, patient underwent colonoscopy after the bowel prep and since then has been having "diarrhea"according to her. When asked in detail patient states that every time she goes to bathroom for urination she loses small amount of stool and almost cannot have control on it. Patient does not have urge to defecate, but whenever she strains she has small stool leak. It is associated with lower abdominal pain, and all lower quadrants, crampy, constant, worse with movements, not associated with bowel movement. Patient also complains of chronic back pain which is on her waist line, denies worsening. She had one episode of vomiting today. No fever, chills, no blood in vomiting or stool, otherwise ROS unremarkable. Vitals: Afebrile, pulse in 80s, RR 18, blood pressure 117/65, saturating well on room air. On exam: A O 3, cooperative, no acute distress, neck supple, JVD normal, no lymphadenopathy, mucosa dry, cranial nerves intact, strength normal in all muscle groups, reflexes +2, sensation intact, no saddle anesthesia, rectal tone normal, skin tags present , no dependent edema, bilateral lower extremity skin redness, warm to touch CVS: S1-S2, RRR. RS: Clear to auscultate bilaterally. Abdomen: Soft, NT, ND, bowel sounds present. Labs: WBC 9.7, neutrophils 76%, hemoglobin 13.4, hematocrit 40.3, platelets 328, sodium 145, potassium 3.8, chloride 104, bicarbonate 28, BUN 1, creatinine 0.9, glucose 105, calcium 9.9, LFT unremarkable, troponin 0.02, lipase 45, UA unremarkable CT abdomen and pelvis without IV contrast: 1. Severe colonic diverticulosis. Inflammatory changes in the descending, sigmoid colon, and rectum are generalized without significant focality, potentially due to a mild generalized colitis. Focal diverticulitis is possible. No perforation or abscess. 2. Moderate-sized hiatal hernia. 3. moderate severe multilevel degenerative disc disease in the thoracolumbar spine with severe facet arthropathy in the lower lumbar spine and grade 2 anterolisthesis of L4 on L5. A superior endplate compression deformity is present at the T10 vertebral body with minimal loss of vertebral body height. Assessment and plan 77-year-old female with extensive past medical history was admitted in hospital from September 08 to September 11 for bloody bowel movement, suspected secondary to ischemic colitis versus stercoral colitis and was prophylactically treated with ciprofloxacin and Flagyl, patient underwent colonoscopy after the bowel prep and since then has been having "diarrhea" according to her. When asked in detail the diarrhea appears to be "not able to hold" the stool when stress, urination. Otherwise she does not have any bowel accidents, unchanged urinary incontinence, uses diapers. Patient had similar history of incontinence in the past, 7-8 years back (records reviewed); patient underwent surgery for removal of prolapsed rectal polyp by Dr. Wheatley and symptoms resolved after that. No blood in stool. She complains of diffuse lower abdominal pain. On rectal examination the tone is normal, there is skin tag but no obvious bleeding. Abdomen is soft, nontender, bowel sounds present. CT mentions about inflammatory changes and descending colon and sigmoid colon and rectum, possibility of focal diverticulitis could not be ruled out. CT scan done on September 08 reviewed, it mentions Possibility of diverticulitis. Recent colonoscopy results done on September 23 were reviewed, which was unremarkable. If colitis mentioned in today's CT scan is the cause of abdominal pain, it is of unclear etiology. Patient has history of Crohn's disease but has been under remission since long time, recent colonoscopy is normal. Residual inflammation from previous colitis episode is another possibility (colonoscopy normal). We will rule out C. difficile with recent Cipro use. At the same time radiculopathy should be considered as a differential. We will involve gastroenterology again, get MRI of thoracic lumbar spine. Watch off antibiotics. + Colitis + Dehydration + History of CAD S/P NSTEMI, HLD, Crohn's disease, right nephrectomy, small vessel vasculitis with SLE, COPD, KUSH on CPAP - Place observation to Gen. medicine - Continue gentle hydration - Watch off antibiotics - Serial abdominal examination - Check lactic acid - Check stool for C. difficile - Check for fecal occult blood - Consult gastroenterology in morning - MRI thoracic and lumbar spine - Adequate pain control - DVT prophylaxis - Continue all her home medications
[2017-09-28 08:07] LABS: ABSOLUTE BASOPHIL COUNT 0.1 /CUMM (0.0-0.2); ABSOLUTE EOSINOPHIL COUNT 0 /CUMM (0.0-0.7); ABSOLUTE GRANULOCYTE CT 7.3 /CUMM (1.4-6.5); ABSOLUTE LYMPH COUNT 2.1 /CUMM (1.2-3.4); ABSOLUTE MONOCYTE COUNT 0.8 /CUMM (0.10-0.60); BASOPHIL % 0.6 % (0.0-2.0); EOSINOPHIL % 0 % (0-5); GRANULOCYTE % 70.7 % (42.2-75.2); MEAN CORPUSCULAR HGB 33.2 PG (27.0-31.0); MEAN CORPUSCULAR HGB CONC 33.9 G/DL (33.0-37.0); MEAN CORPUSCULAR VOLUME 98.1 FL (81.0-99.0); MEAN PLATELET VOLUME 9.5 FL (7.4-10.4); PLATELET COUNT 275 /CUMM (130-400); RBC DISTRIBUTION WIDTH 15.6 % (11.5-14.5); RED BLOOD CELL CT 3.54 /CUMM (4.20-5.40); WHITE BLOOD CELL COUNT 10.3 /CUMM (4.8-10.8)
[2017-09-28 08:31] LABS: HEMATOCRIT 34.7 % (37-47)
--- NOTE | 2017-09-28 09:18 | PN- Housestaff ---
Subjective Follow-up For: Colitis Subjective: Patient was seen and examined this morning, vital signs stable, afebrile. Patient reported lower abdominal pain 7 out of 10 improved from 10 out of 10 prior to admission. Reported lower back pain. Patient had urine incontinence and stool incontinence comes only with stress urine incontinence. Denied any blood. Had one episode of vomiting yesterday but nothing this morning. Denied nausea. Denied burning with urination. Denied weakness or numbness. Review of Systems Constitutional: Reports: see HPI. Objective Last 24 Hrs of Vital Signs/I&O Vital Signs Date Time Temp Pulse Resp B/P B/P Pulse O2 O2 Flow FiO2 Mean Ox Delivery Rate 09/28 0903 96.3 68 20 116/58 09/28 0629 96.3 68 20 116/58 95 Room Air 09/28 0212 97.5 80 18 126/56 95 Room Air 09/27 2217 98.6 86 18 136/60 94 Room Air 09/27 2003 97.0 76 20 117/65 97 Room Air Intake & Output 09/28 1600 09/28 0800 09/28 0000 Intake Total 240 580 Output Total 200 300 Balance 40 280 Intake, IV 100 Intake, Oral 240 480 Output, Urine 200 300 Patient 87.997 kg Weight Weight Reported by Patient Measurement Method Physical Exam General Appearance: Alert, Oriented X3, Cooperative, No Acute Distress Skin: No Rashes Skin Temp/Moisture Exam: Warm/Dry HEENT: Atraumatic, PERRLA, EOMI, Mucous Membr. moist/pink Neck: Supple Cardiovascular: Regular Rate, Normal S1, Normal S2, No Murmurs Lungs: Clear to Auscultation, Normal Air Movement
--- NOTE | 2017-09-28 09:21 | PN-Observation ---
Hernandez HUFF,[facility] 09/28/17 0918: Observation Note Observation Note _ I have personally examined JEEVAN VAUGHAN. her disposition is uncertain at this time. Before a determination can be made, she requires continued observation for the following reasons [colitis]. 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 Sevilla), COPD, spondylolysis, diverticulosis, osteoarthritis, depression, KUSH on CPAP, right nephrocystectomy, recent history of colonoscopy on September 23, history of diarrhea and lower abdominal pain since then. Patient main complaints today are lower abdominal pain and lower back pain. This morning, patient was afebrile, vital signs are stable. Labs reflect no leukocytosis, mild drop in her hemoglobin from 13.4-11.8 with baseline hemoglobin 10-11 Hyponatremia of 3.3, liver function within normal, lactate dehydrogenase 628, lactic acid 0.7 MRI lumbar spine with and without contrast revealed acute compression fracture of T 10 and L3 along with severe canal stenosis at L3 and L4, moderate canal stenosis at L1/L2 and L2/L3 and L4/L5. History of chronic steroid use for SLE Plan -Will admit the patient -Replete potassium -Obtain magnesium level and replete with IV given history of diarrhea -GI consultation pending -Neurosurgery consultation, spoke with the PA reported chronic history of spinal stenosis, no acute intervention at this time. Patient follow with pain clinic at [facility] for chronic pain. -We'll obtain PT evaluation and treat -Follow up urine culture -Follow up C. difficile -Patient is on liquid diet, advance to low fiber diet -Continue pain management Lidoderm patch, acetaminophen for mild pain, oxycodone 5 mg Q6hr for moderate pain and diluted 0.6 Q4hr for severe pain DVT prophylaxis Lovenox Code full Problem List: 1. Colitis Subjective Follow-up For: Colitis Subjective: Patient was seen and examined this morning, vital signs stable, afebrile. Patient reported lower abdominal pain 7 out of 10 improved from 10 out of 10 prior to admission. Reported lower back pain. Patient had urine incontinence and stool incontinence comes only with stress urine incontinence. Denied any blood. Had one episode of vomiting yesterday but nothing this morning. Denied nausea. Denied burning with urination. Denied weakness or numbness. Review of Systems Constitutional: Reports: see HPI. Objective Last 24 Hrs of Vital Signs/I&O Vital Signs Date Time Temp Pulse Resp B/P B/P Pulse O2 O2 Flow FiO2 Mean Ox Delivery Rate 09/28 0903 96.3 68 20 116/58 09/28 0629 96.3 68 20 116/58 95 Room Air 09/28 0212 97.5 80 18 126/56 95 Room Air 09/27 2217 98.6 86 18 136/60 94 Room Air 09/27 2003 97.0 76 20 117/65 97 Room Air Intake & Output 09/28 1600 09/28 0800 09/28 0000 Intake Total 240 580 Output Total 200 300 Balance 40 280 Intake, IV 100 Intake, Oral 240 480 Output, Urine 200 300 Patient 87.997 kg Weight Weight Reported by Patient Measurement Method Physical Exam General Appearance: Alert, Oriented X3, Cooperative, No Acute Distress Skin: No Rashes Skin Temp/Moisture Exam: Warm/Dry HEENT: Atraumatic, PERRLA, EOMI, Mucous Membr. moist/pink Neck: Supple Cardiovascular: Regular Rate, Normal S1, Normal S2, No Murmurs Lungs: Clear to Auscultation, Normal Air Movement Abdomen: Normal Bowel Sounds, Soft, very mild tenderness lower abdomen Neurological: Normal Speech, Strength at 5/5 X4 Ext, Normal Tone, Sensation Intact, Cranial Nerves 3-12 NL, Reflexes 2+ Extremities: No Clubbing, No Cyanosis, Normal Pulses, bilateral trace pedal edema Other Physical Findings: No sipne tenderness Onel HUFF,Mayra 09/28/17 0949: Observation Note Observation Note _ I have personally examined NICHOLASMARGARET DALYALLISON Loja. her disposition is uncertain at this time. Before a determination can be made, she requires continued observation for the following reasons . 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 She was recently here admitted from September 08 to September 11 where she was treated for colitis and at that point she had leukocytosis, abdominal pain and the lactic acidosis. She had a screening colonoscopy done as an outpatient on September 23 which showed diverticulosis but no evidence of active disease in terms of IBD or any other reason for colitis. She returns with abdominal pain and also low back pain. And a previous MRI showed lumbar spinal stenosis. This time she didn't have a leukocytosis and was mildly hypokalemic with a CT abdomen showing some questionable colitis in the descending sigmoid colon. I'm not convinced that she is having a colitis as the cause of her abdominal pain. Especially given the lack of the leukocytosis and the negative colonoscopy less than a week ago. Will call GI to see her from that standpoint. We've continued her prednisone and she is due to get her methotrexate on that she normally gets. An MRI has been ordered of the lumbar spine because that could be the cause of the severe pain. Depending on the results of the MRI will order a PT eval and follow-up.
--- NOTE | 2017-09-28 13:01 | MRI REPORT ---
EXAMINATION: MR LUMBAR SPINE WITHOUT AND WITH CONTRAST CLINICAL INFORMATION: Evaluate for nerve compression. Low back pain. Fecal incontinence. COMPARISON: Lumbar spine MRI 06/22/2017. TECHNIQUE: MRI of the lumbar spine was obtained before and after intravenous administration of 9 mL Gadavist. FINDINGS: There is grade 2 anterolisthesis of L4 on L5 that appears to be related to advanced facet degenerative changes at this level. Slight grade 1 retrolisthesis of L1 on L2 and L2 on L3. There is bone marrow edema associated with an acute upper L3 endplate fracture resulting in 40% vertebral body height loss centrally. There is also an acute compression fracture of the T10 vertebral body with subtle impaction of the upper endplate resulting in 10% vertebral body height loss anteriorly. There is no overt retropulsion of posterior cortex at either of these 2 levels. There are mixed type I and type II degenerative endplate changes at L1-L2 and L4-L5. There is loss of intervertebral disc height and T2 signal intensity at multiple levels within the lumbar spine related to disc degeneration. The tip of the conus medullaris is located at the level of L1-L2. No mass effect the conus. Visualized distal cord signal intensity is normal. At L1-L2 there is a diffusely bulging disc. Bilateral facet degenerative change. Moderate canal stenosis. No foraminal nerve root compression. At L2-L3 there is a diffusely bulging disc causing ventral flattening of the thecal sac. Advanced facet degenerative change. Circumferential prominence of the epidural fat in conjunction with the degenerative changes causes compression of the thecal sac and near complete effacement of subarachnoid space. Moderate canal stenosis. No foraminal nerve root compression. At L3-L4 there is a diffuse annular bulge. Advanced facet degenerative change. Circumferential prominence of the epidural fat in conjunction with a degenerative changes cause compression of the thecal sac and complete effacement of subarachnoid space. Severe canal stenosis. No foraminal nerve root compression. At L4-L5 there is a diffuse annular bulge/pseudobulge. Advanced facet degenerative change. Moderate canal stenosis. Moderate compression of the foraminal segment of the left L4 nerve root. At L5-S1 there is a diffuse annular bulge. Advanced facet degenerative change. No canal stenosis. No foraminal nerve root compression. Postcontrast images reveal no abnormal enhancement. There chronic changes of a right nephrectomy. There is symmetric atrophy of the psoas and paraspinal muscles. IMPRESSION: There are acute compression fractures of the T10 and L3 vertebral bodies with subtle impaction of the upper endplates at each of these 2 levels. There is anterior wedging at T10 with approximately 10% vertebral body height loss anteriorly. 40% vertebral body height loss centrally at L3. No overt retropulsion of the posterior cortex at either of these 2 levels. In addition to these acute findings there is advanced multilevel degenerative spondylosis of the lumbar spine with grade 2 anterolisthesis of L4 on L5 related to advanced facet degenerative changes at this level. Severe canal stenosis at L3-L4. Moderate canal stenosis at L1-L2, L2-L3, and L4-L5. There is moderate compression of the foraminal segment of the left L4 nerve root related to multifactorial degenerative changes at L4-L5.
--- NOTE | 2017-09-28 15:21 | Event Note ---
Event Note Event Note: Mr. Garcia lumbar spine MRI revealed acute compression fracture of T 10 and L2 with spinal cord stenosis which requires adequate pain management/anesthesia and PT evaluation and treat for that patient will be admitted for appropriate clinical management.
--- NOTE | 2017-09-28 15:45 | Cons- Gastroenterology ---
General Information and HPI Consulting Request Date of Consult: 09/28/17 Requested By: Mayra Sykes MD Reason for Consult: "Colitis" (The patient is being seen in GI coverage for Dr. Miguel Mayes). Source of Information: patient, old records Exam Limitations: fair historian History of Present Illness: 77 y/o female, ASHD, NSTEMI 2015, HTN, HLD, obese, mild Crohn's ileocolitis (? duration- never on biologics or 6MP; on MTX & Prednisone purely for SLE), small vessel vasculitis, with SLE (on MTX/Prednisone 5 mg daily), COPD (w/o O2; ex-40 pk yr cigarette smoker, D/C 1992), spondylolisthesis, diverticulosis coli, DJD, anxiety, depression, restless leg syndrome, possible lymphoproliferative disorder by 09/30/16: flow cytometry, renal cell CA post right nephrectomy, left oophrectomy, KUSH on CPAP, who presented to the [facility] 09/27/17 at 7:36 p.m., with nausea & vomiting X 1 (partially digested food, without bile or hematemesis ), and vague lower abdominal pain, allegedly since her colonoscopy of 09/23/17. Upon arrival, she was hemodynamically stable & afebrile, with O2 sat RA 97%. The patient was recently admitted to [facility] 09/04/17 to 09/11/17, treated with Cipro & Flagyl for suspected colitis/diverticulitis. 09/23/17: Colonoscopy to cecum per Dr. Miguel Mayes (done for screening, intermittent LGI bleeding, leukocytosis, & possible colitis)- left-sided diverticular disease especially in the sigmoid with mychosis, no colitis, normal mucosa, external hemorrhoids. *TI could not be entered, due to angulation. *No biopsies were done then. She has had multiple colonoscopies by Dr. Miguel Mayes for her Crohn's disease. She had 09/02/10: transanal excision of a benign inflammatory rectal polyp, per Dr. Wheatley. She has had numerous EGD per Dr. Miguel Mayes, last on 03/05/17 for GERD, at which point, no gross esophagitis or Paulson's esophagus were seen. There was a large hiatal hernia with Atif's erosions & antral gastritis, biopsies HP-negative, with minimal CAG. The patient's 5-ASA & MTX were continued , the latter for her SLE, not Crohn's. The patient claims the bowel prep for colonoscopy "irritated her colon". She then noted fecal incontinence with lower abdominal cramps "10 out of 10" worse with laughing or with movement. She denied any fevers, chills, sick contacts, recent travel, NSAIDs, chest pain, or shortness of breath. She also had chronic lower back and right knee pain, treated with Oxycodone. She was given Morphine, Dilaudid, IV Ceftriaxone & Flagyl in the ER. She was also complaining of chronic low back pain and knee pain. She was also complaining of migraine headache. The patient was initially made 23 hour observation. She was found to have a compression fracture of her T-L spine and was then made a full admission. Baseline HCT- mid 30's. She may have been hemoconcentrated on admission & her H/H dropped appropriately after IVF. Her n & V resolved. 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 She was lying in bed in NAD & tolerated a grilled cheese sandwich. Her IV Flagyl & Ceftriaxone were stopped on 09/27/17. At the time of the GI consult, she denied any abdominal pain, diarrhea, constipation, obstipation, tenesmus, rectal bleeding, change in stool caliber, or melena. She denied any GERD, odynophagia, dysphagia, hematemesis, or early satiety. She denied any acute arthralgias, aside from her chronic DJD, or rashes. 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 She denied any jaundice, fevers, chills, weight loss, significant change in appetite, CP, increased SOB, sx UTI or URI. There is no FHx GI Ca, IBD, additional GI disease, or inherited liver disease. 09/27/17: Admission labs- WBC 9.7 (76% gran, 7 gran Ab), H/H 13.4/40.3, MCV 97.6 , RDW 16.4, PLT 328, glu 105, BUN/Cr 14/0.9, GFR > 60, Na 145, K 3.8, HCO3 28, AG 14, nl amylase/lipase 32/45, Ca 9.9, albumin 4.1, globulin 2.8, TBil 1.1, DBil 0.4, alk phos 75, AST 27, ALT 35, troponin .02; U/A- clear yellow, 1.015, 6.5, micro- negative; neg nitrite, neg esterase. 09/28/17: WBC 10.3 (no left shift), H/H 11.8/34.7, MCV 98.1, RDW 15.6, PLT 275, BUN/Cr 11/0.8, GFR > 60, Na 142, *K 3.3, HCO3 26, AG 11, Mg 1.7, lactate 0.7, LDH 628 09/27/17: EKG- NSR @ 69, borderline LAD, without acute ischemia. 09/27/17: CT ABDOMEN AND PELVIS WITHOUT IV or PO CONTRAST- 1. Severe colonic diverticulosis. Inflammatory changes in the descending, sigmoid colon, and rectum are generalized without significant focality, potentially due to a mild generalized colitis. Focal diverticulitis is possible. No perforation or abscess. 2. Moderate-sized hiatal hernia. [I reviewed the above 09/27/17: CT AP w/o contrast with Dr. Hogan, of [facility], & the findings were very soft, without change from the prior 09/08/17: CT AP w/o contrast & probably reflect chronic diverticular changes, rather than colitis or focal diverticulitis, *especially since the 10/08: colonoscopy by Dr. Miguel Mayes revealed normal mucosa!]. 09/28/17: MR LUMBAR SPINE WITHOUT AND WITH CONTRAST- There are acute compression fractures of the T10 and L3 vertebral bodies with subtle impaction of the upper endplates at each of these 2 levels. There is anterior wedging at T10 with approximately 10% vertebral body height loss anteriorly. 40% vertebral body height loss centrally at L3. No overt retropulsion of the posterior cortex at either of these 2 levels. In addition to these acute findings there is advanced multilevel degenerative spondylosis of the lumbar spine with grade 2 anterolisthesis of L4 on L5 related to advanced facet degenerative changes at this level. Severe canal stenosis at L3-L4. Moderate canal stenosis at L1-L2, L2-L3, and L4-L5. There is moderate compression of the foraminal segment of the left L4 nerve root related to multifactorial degenerative changes at L4-L5. Allergies/Medications Allergies: Coded Allergies: Iodinated Contrast- Oral and IV Dye (Iodinated Contrast Media - IV Dye) ( Intermediate, CAT SCAN DYE RED, FLUSHING, FEELING HOT, RASH 02/28/16) lactose (LACTOSE INTOLERANT 09/26/16) Home Med List: Albuterol Sulfate (Proair Hfa) 90 MCG HFA.AER.AD 2 PUF INH 4XDAILY PRN COPD ( Reported) Ascorbic Acid (Vitamin C) 1,000 MG TABLET 1 TAB PO DAILY SUPPLEMENT (Reported ) Aspirin (Ecotrin*) 81 MG TABLET.DR 1 TAB PO DAILY HEART/BLOOD (Reported) Aspirin/Acetaminophen/Caffeine (Excedrin Extra Strength Caplet) 250 MG-250 MG-65 MG TABLET 2 TAB PO Q8H PRN HEADACHE (Reported) Bacillus Coagulans (Digestive Advantage) 250 MILLION CELL TAB.CHEW 1 TAB PO DAILY PROBIOTIC (Reported) Benzonatate 100 MG CAPSULE 100 MG PO TID cough Buspirone HCl 7.5 MG TABLET 1 TAB PO BID PRN ANXIETY (Reported) Butalb/Acetaminophen/Caffeine (Mbcgofcs-Wsaedsxcjtqju-Mpyh Cp) 50 MG-325 MG-40 MG CAPSULE 1 TAB PO Q6H PRN HILLS (Reported) Calcium Carbonate/Vitamin D3 (Calcium + Vitamin D Tablet) 600 MG-200 TABLET 1 TAB PO DAILY SUPPLEMENT (Reported) Cholecalciferol (Vitamin D3) (Vitamin D) 5,000 UNIT TABLET 2 TAB PO AD PRN supplement (Reported) Ciprofloxacin HCl (Cipro) 500 MG TABLET 1 TAB PO BID colitis Cyanocobalamin (Vitamin B-12) 1,000 MCG TABLET 1 TAB PO DAILY SUPPLEMENT ( Reported) Duloxetine HCl (Cymbalta) 60 MG CAPSULE.DR 1 CAP PO QHS DEPRESSION (Reported) Ferrous Sulfate (IRON) 325 MG (65 MG IRON) TABLET 1 TAB PO DAILY SUPPLEMENT ( Reported) Fluticasone Propionate (Flovent Hfa) 110 MCG/ACTUATION AER.W.ADAP 2 PUF INH BID COPD Folic Acid 1 MG TABLET 1 TAB PO DAILY SUPPLEMENT (Reported) Ketoconazole 2 % CREAM..G. 1 MCKINLEY TOP BID UNDER BREASTS/GROIN (Reported) apply to affected area(s) Krill Oil/[place]orne-3/Dha/Epa (Cvs [place]-3 Krill Oil 300 Sfgl) 300 MG-90 MG (27 MG- 45 MG) CAPSULE 1 TAB PO DAILY SUPPLEMENT (Reported) Lactobacillus Acidophilus (Acidophilus) 1 EACH CAPSULE 1 CAP PO QAM PROBIOTIC (Reported) Mesalamine (Asacol Hd) 800 MG TABLET.DR 2 TAB PO TID CROHNS (Reported) Methotrexate 2.5 MG TABLET 3 TAB PO BID ON THURS LUPUS (Reported) Metoprolol Tartrate 50 MG TABLET 1 TAB PO DAILY HTN (Reported) Metronidazole (Flagyl) 250 MG TABLET 1 TAB PO Q8 colitis Niacin (Niaspan) 500 MG TAB.ER.24H 1 TAB PO DAILY CHOLESTEROL (Reported) [NU-ZYMES] LACTOSE INTOLERANT ENZYMES (Reported) Oxycodone HCl 5 MG TABLET 1 TAB PO Q6H PRN PAIN (Reported) Prednisone 5 MG TABLET 1 TAB PO DAILY SLE (Reported) Rabeprazole Sodium 20 MG TABLET.DR 1 TAB PO BID ACID REFLUX (Reported) Ropinirole HCl (Requip) 4 MG TABLET 1 TAB PO QPM RLS (Reported) Tylenol With Codeine (Tylenol With Codeine #3 Tablet) 300 MG-30 MG TABLET 1 TAB PO Q4-6 PRN PRN PAIN (Reported) Umeclidinium Brm/Vilanterol Tr (Anoro Ellipta 62.5-25 Mcg INH) 62.5 MCG-25 MCG/ ACTUATION BLST.W.DEV 1 PUFF INH DAILY SOB (Reported) Current Medications: Current Medications Sig/Cherry Start time Last Medication Dose Route Stop Time Status Admin Acetaminophen 0 .STK-MED ONE 09/28 13 DC PO Acetaminophen 650 MG Q6P PRN 09/27 2215 AC 09/28 PO 0014 Acetaminophen/ 1 TAB ONCE ONE 09/28 0445 DC 09/28 Butalbital/Caffeine PO 09/28 0446 0439 Albuterol Sulfate 2 PUF Q4-6 PRN PRN 09/27 2345 AC INH Aspirin Buffered 81 MG DAILY 09/28 1000 AC 09/28 PO 0903 Buspirone HCl 7.5 MG BID PRN 09/27 2356 AC PO Ceftriaxone Sodium 1,000 MG ONCE ONE 09/27 2199 DC 09/27 IV 09/27 2200 215 Ceftriaxone Sodium 0 .STK-MED ONE 09/27 2152 DC .ROUTE Duloxetine HCl 60 MG AT BEDTIME 09/28 2200 DC PO Duloxetine HCl 60 MG AT BEDTIME 09/28 0045 AC 09/28 PO 0056 Duloxetine HCl 60 MG .[QHS] 09/27 2345 DC PO Enoxaparin Sodium 40 MG DAILY 09/28 1000 AC 09/28 SC 0903 Ferrous Sulfate 325 MG TID 09/28 1000 AC 09/28 PO 1725 Hydromorphone HCl 0.6 MG Q6-PRN PRN 09/28 1600 AC IV Hydromorphone HCl 0 .STK-MED ONE 09/28 1317 DC .ROUTE Hydromorphone HCl 0 .STK-MED ONE 09/28 0846 DC .ROUTE Hydromorphone HCl 0 .STK-MED ONE 09/28 0210 DC .ROUTE Hydromorphone HCl 0.6 MG Q4P PRN 09/27 2345 DC 09/28 IV 1322 Hydromorphone HCl 0 .STK-MED ONE 09/27 2140 DC .ROUTE Hydromorphone HCl 0.6 MG ONCE ONE 09/27 2130 DC 09/27 IV 09/27 2131 2142 Lactobacillus 1 CAP BID 09/28 1000 AC 09/28 Acidophilus PO 0903 Lidocaine 1 PAT DAILY 09/28 1517 DC EXT Magnesium Sulfate 1 GM Q2H 09/28 1515 AC 09/28 Dextrose/Water 100 ML IV 09/28 1914 1550 Mesalamine 800 MG TID 09/28 0030 AC 09/28 PO 1725 Methotrexate 7.5 MG BID 10/01 1000 AC PO 10/01 2201 Metoprolol Tartrate 50 MG DAILY 09/28 1000 AC 09/28 PO 0903 Metronidazole 500 MG ONCE ONE 09/27 220 DC 09/27 IV 09/27 220 2208 Morphine Sulfate 2 MG Q4P PRN 09/27 221 DC IV Morphine Sulfate 0 .STK-MED ONE 09/27 2044 DC .ROUTE Morphine Sulfate 4 MG ONCE ONE 09/27 2014 DC 09/27 IV 09/27 Nicotinic Acid 500 MG WITH MEALS 09/28 0800 AC 09/28 PO 1725 Omeprazole 20 MG DAILY AC 09/28 0700 AC 09/28 PO 0616 Oxycodone HCl 5 MG Q6H PRN 09/28 1245 CAN PO Oxycodone HCl 5 MG Q6 PRN 09/27 2215 AC PO Potassium Chloride 40 MEQ BID 09/28 1000 AC 09/28 PO 09/28 220 0903 Prednisone 5 MG DAILY 09/28 1000 AC 09/28 PO 0903 Ropinirole HCl 4 MG QPM 09/28 2200 AC PO Sodium Chloride 1,000 ML Q13H 09/27 2345 DC 09/28 IV 1321 Past History Travel History Traveled to [place] past 21 day No Medical History Blood Transfusion Hx: No Neurological: migraine, restless leg syndrome EENT: allergies, CATARACT REMOVAL BOTH EYE Cardiovascular: CAD, hypertension, hyperlipidemia, NSTEMI (2015) Respiratory: COPD, obstructive sleep apnea, CPAP Gastrointestinal: Crohn's disease, diverticulitis, GERD, lactose intolerance Hepatic: NONE Renal: nephrectomy (right for encapsulated RC Ca), urinary incontinence Musculoskeletal: chronic back pain, disk herniation, degen joint disease, osteoarthritis, SPONDYLOLISTHESIS BONE SPUR- R HEEL R KNEE TORN MENISCUS CHRONIC BACK PAIN SKIN LUPUS Psychiatric: anxiety, depression Endocrine: obesity, vitamin D deficiency Blood Disorders: possible lymphoprolif disorder Cancer(s): renal cancer [employer]/Reproductive: L oophrectomy ("benign") Other Medical Hx: DISCOID LUPUS Surgical History Surgical History: appendectomy, cataract removal, knee replacement (left), right nephrectomy left oophorectomy TONSILLECTOMY HEMORRHOID REMOVAL bilateral shoulder replacements Family History Relations & Conditions If Any: FATHER, , Age 65. FH: ALS (amyotrophic lateral sclerosis) MOTHER, , Age 88; Cause: CHF (congestive heart failure). FH: heart failure BROTHER FH: hypertension Psychosocial History Where Do You Live? Home Who Do You Live With? self Services at Home: Home Health Aide, Nursing, Physical Therapy Primary Language: Tanzanian Smoking Status: Former Smoker ETOH Use: denies use Illicit Drug Use: denies illicit drug use Living Will? yes Power of Bakery Clerk/HCP? yes Name of POA/HCP: enid Gillette Other Social History: . Lives alone. 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 1 dtr/POAMaggi ([phone]). Ex-40 pk yr cigarette smoker, D/C 1992. No illicit drugs or EtOH. Functional Ability ADLs Independent: dressing, eating, toileting, bathing. Ambulation: cane IADLs Independent: finances, food prep, telephone, medication admin. Needs Assist: shopping, housework, transportation. 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 Review of Systems Constitutional: Denies: chills, diaphoresis, fever, malaise, weakness, unexplained weight loss. EENTM: Denies: blurred vision, double vision, visual changes, eye pain, eye drainage, eye tearing, icterus, ear discharge, ear pain, ear redness, hearing changes, nasal congestion, epistaxis, nasal pain, throat pain, throat swelling, mouth pain, tooth pain. Cardiovascular: Denies: chest pain, edema, orthopena, palpitations, peripheral edema, syncope. Respiratory: Denies: cough, hemoptysis, orthopnea, short of breath, sputum production, stridor, wheezing. GI: Reports: abdominal pain (resolved), diarrhea (resolved), bowel incontinence ( fecal), nausea (resolved), vomiting (resolved). Denies: bloating, constipation, distention, melena, bloody stool, changes in stool, steatorrhea. Genitourinary: Denies: discharge, dysuria, frequency, hematuria, hesitation, nocturia, pain, urgency. Musculoskeletal: Reports: back pain (chronic), joint pain (chronic). Denies: gout, joint swelling, muscle pain, muscle stiffness, neck pain. Skin: Denies: cysts, change in skin color, change in hair/nails, dryness, erythema, jaundice, lesions, lymphangitis, lumps, moles, rash. Neurological/Psychological: Reports: anxiety, depressed, emotional problems, headache (migraine). Denies: ataxia, cognitive dysfunction, confusion, dementia, numbness, paresthesia, pre- existing deficit, petit mal seizures, tingling, tremors, tonic-clonic seizures, unable to move lower ext, unable to move upper ext, weakness. Hematologic/Endocrine: Denies: bruising, bleeding, polyuria, polydipsia. Immunologic/Allergic: Denies: splenectomy, HIV/AIDS, lymphadenopathy. All Other Systems: Reviewed and Negative Exam & Diagnostic Data Vital Signs and I&O Vital Signs Date Time Temp Pulse Resp B/P B/P Pulse O2 O2 Flow FiO2 Mean Ox Delivery Rate 09/28 1544 976.0 09/28 1519 95 18 82/50 95 Room Air 09/28 0941 97.9 74 20 134/63 94 Room Air 09/28 0903 96.3 68 20 116/58 09/28 0629 96.3 68 20 116/58 95 Room Air 09/28 0212 97.5 80 18 126/56 95 Room Air 09/27 2217 98.6 86 18 136/60 94 Room Air 09/27 2002 97.0 76 20 117/65 97 Room Air Intake & Output 09/28 1600 09/28 0400 09/27 1600 09/27 0400 09/26 1600 09/26 0400 Intake Total 240 580 Output Total 200 300 Balance 40 280 Intake, IV 100 Intake, Oral 240 480 Output, Urine 200 300 Patient 194 lb Weight Weight Reported by Patient Measurement Method Physical Exam: Well-developed, well-nourished, chronically ill appearing, elderly obese female, in no apparent distress. Non-toxic appearing. Sclera anicteric. Conjunctiva pink. Oropharynx clear. No oral thrush. No aphthous ulcers. Poor dentition. No upper teeth. There is no adenopathy, thyromegaly, or JVD. No peripheral stigmata of inflammatory bowel disease or chronic liver disease on exam. No spiders on the anterior chest wall. Breast & pelvic exams: API. No CVA tenderness. Mild T-L spine tenderness. Lungs: clear to A&P. No wheezing, rales, or rhonchi. Heart exam: regular rate rhythm S1 and S2, without any murmur. Abdominal exam: normal bowel sounds, soft mildly obese belly, multiple scars, currently nontender, without guarding or rebound. Reducible umbilical hernia, otherwise no mass. No organomegaly. No fluid shift. No pulsatile mass. No epigastric bruit. Repeat digital rectal exam: deferred by patient, as reportedly OB-negative API on admission (also done by Dr. Miguel Mayes at time of 09/23/17: colonoscopy). Extremities: without C, C, or E. No palpable cords. + DJD. Post left TKR & B/L shoulder replacements. No palmar erythema. No Dupuytren's contractures. Distal pulses 2+ bilaterally. DTRs 2+ bilaterally. Alert and oriented x 3. No tremor. No asterixis. Motor 4/5 B/L. Moves all extremities. No gross signs of cord compression (hx fecal incontinence noted). A detailed exam for peripheral neuropathy was deferred. Results Pertinent Lab Results: Laboratory Tests 09/28 09/27 0613 2352 Chemistry Sodium (137 - 145 mmol/L) 142 Potassium (3.5 - 5.1 mmol/L) 3.3 L Chloride (98 - 107 mmol/L) 104 Carbon Dioxide (22 - 30 mmol/L) 26 Anion Gap (5 - 16) 11 BUN (7 - 17 mg/dL) 11 Creatinine (0.5 - 1.0 mg/dL) 0.8 Estimated GFR (>60 ml/min) > 60 BUN/Creatinine Ratio (7 - 25 %) 13.8 Lactic Acid (0.7 - 2.1 mmol/L) 0.7 Magnesium (1.6 - 2.3 mg/dL) 1.7 Lactate Dehydrogenase (313 - 618 U/L) 628 H Hematology CBC w Diff NO MAN DIFF REQ WBC (4.8 - 10.8 /CUMM) 10.3 RBC (4.20 - 5.40 /CUMM) 3.54 L Hgb (12.0 - 16.0 G/DL) 11.8 L Hct (37 - 47 %) 34.7 L MCV (81.0 - 99.0 FL) 98.1 MCH (27.0 - 31.0 PG) 33.2 H RDW (11.5 - 14.5 %) 15.6 H Plt Count (130 - 400 /CUMM) 275 MPV (7.4 - 10.4 FL) 9.5 Gran % (42.2 - 75.2 %) 70.7 Lymphocytes % (20.5 - 51.1 %) 20.5 Monocytes % (1.7 - 9.3 %) 8.2 Eosinophils % (0 - 5 %) 0 Basophils % (0.0 - 2.0 %) 0.6 Absolute Granulocytes (1.4 - 6.5 /CUMM) 7.3 H Absolute Lymphocytes (1.2 - 3.4 /CUMM) 2.1 Absolute Monocytes (0.10 - 0.60 /CUMM) 0.8 H Absolute Eosinophils (0.0 - 0.7 /CUMM) 0 Absolute Basophils (0.0 - 0.2 /CUMM) 0.1 PUBS MCHC (33.0 - 37.0 G/DL) 33.9 Urines Urine Color (YEL,AMB,STR) YEL Urine Clarity (CLEAR) CLEAR Urine pH (5.0 - 8.0) 6.5 Ur Specific [place] (1.001 - 1.035) 1.015 Urine Protein (NEG,<30 MG/DL) NEG Urine Ketones (NEG) NEG Urine Nitrite (NEG) NEG Urine Bilirubin (NEG) NEG Urine Urobilinogen (0.1 - 1.0 EU/dl) 1.0 Ur Leukocyte Esterase (NEG) NEG Ur Microscopic EXAM NOT REQUIRED Urine Hemoglobin (NEG) NEG Urine Glucose (N MG/DL) NEG 09/275 9 Chemistry Sodium (137 - 145 mmol/L) Cancelled 145 Potassium (3.5 - 5.1 mmol/L) Cancelled 3.8 Chloride (98 - 107 mmol/L) Cancelled 104 Carbon Dioxide (22 - 30 mmol/L) Cancelled 28 Anion Gap (5 - 16) Cancelled 14 BUN (7 - 17 mg/dL) Cancelled 14 Creatinine (0.5 - 1.0 mg/dL) Cancelled 0.9 Estimated GFR (>60 ml/min) > 60 BUN/Creatinine Ratio (7 - 25 %) Cancelled 15.6 Glucose (65 - 99 mg/dL) 105 H Calcium (8.4 - 10.2 mg/dL) 9.9 Total Bilirubin (0.2 - 1.3 mg/dL) 1.1 Direct Bilirubin (< 0.4 mg/dL) 0.4 AST (14 - 36 U/L) 27 ALT (9 - 52 U/L) 35 Alkaline Phosphatase (<127 U/L) 75 Troponin I (< 0.11 ng/ml) 0.02 Total Protein (6.3 - 8.2 g/dL) 6.9 Albumin (3.5 - 5.0 g/dL) 4.1 Amylase (30 - 110 U/L) 32 Lipase (23 - 300 U/L) 45 Hematology CBC w Diff Cancelled NO MAN DIFF REQ WBC (4.8 - 10.8 /CUMM) Cancelled 9.7 RBC (4.20 - 5.40 /CUMM) Cancelled 4.13 L Hgb (12.0 - 16.0 G/DL) Cancelled 13.4 Hct (37 - 47 %) Cancelled 40.3 MCV (81.0 - 99.0 FL) Cancelled 97.6 MCH (27.0 - 31.0 PG) Cancelled 32.4 H RDW (11.5 - 14.5 %) Cancelled 16.4 H Plt Count (130 - 400 /CUMM) Cancelled 328 MPV (7.4 - 10.4 FL) Cancelled 9.2 Gran % (42.2 - 75.2 %) 76.0 H Lymphocytes % (20.5 - 51.1 %) 15.5 L Monocytes % (1.7 - 9.3 %) 8.2 Eosinophils % (0 - 5 %) 0 Basophils % (0.0 - 2.0 %) 0.3 Absolute Granulocytes (1.4 - 6.5 /CUMM) 7.3 H Absolute Lymphocytes (1.2 - 3.4 /CUMM) 1.5 Absolute Monocytes (0.10 - 0.60 /CUMM) 0.8 H Absolute Eosinophils (0.0 - 0.7 /CUMM) 0 Absolute Basophils (0.0 - 0.2 /CUMM) 0 PUBS MCHC (33.0 - 37.0 G/DL) Cancelled 33.2 Imaging/Other Studies: 09/23/17: Colonoscopy to cecum per Dr. Miguel Mayes (done for screening, intermittent LGI bleeding, leukocytosis, & possible colitis)- left-sided diverticular disease especially in the sigmoid with mychosis, no colitis, normal mucosa, external hemorrhoids. *TI could not be entered, due to angulation. *No biopsies were done then. 09/27/17: EKG- NSR @ 69, borderline LAD, without acute ischemia. 09/27/17: CT ABDOMEN AND PELVIS WITHOUT IV or PO CONTRAST- 1. Severe colonic diverticulosis. Inflammatory changes in the descending, sigmoid colon, and rectum are generalized without significant focality, potentially due to a mild generalized colitis. Focal diverticulitis is possible. No perforation or abscess. 2. Moderate-sized hiatal hernia. [I reviewed the above 09/27/17: CT AP w/o contrast with Dr. Hogan, of [facility], & the findings were very soft, without change from the prior 09/08/17: CT AP w/o contrast & probably reflect chronic diverticular changes, rather than colitis or focal diverticulitis, *especially since the 10/08: colonoscopy by Dr. Miguel Mayes revealed normal mucosa!]. 09/28/17: MR LUMBAR SPINE WITHOUT AND WITH CONTRAST- There are acute compression fractures of the T10 and L3 vertebral bodies with subtle impaction of the upper endplates at each of these 2 levels. There is anterior wedging at T10 with approximately 10% vertebral body height loss anteriorly. 40% vertebral body height loss centrally at L3. No overt retropulsion of the posterior cortex at either of these 2 levels. In addition to these acute findings there is advanced multilevel degenerative spondylosis of the lumbar spine with grade 2 anterolisthesis of L4 on L5 related to advanced facet degenerative changes at this level. Severe canal stenosis at L3-L4. Moderate canal stenosis at L1-L2, L2-L3, and L4-L5. There is moderate compression of the foraminal segment of the left L4 nerve root related to multifactorial degenerative changes at L4-L5. Assessment/Plan Assessment/Recommendations: 77 y/o female, ASHD, NSTEMI 2014, HTN, HLD, obese, mild Crohn's ileocolitis (? duration- never on biologics or 6MP; on MTX & Prednisone purely for SLE), small vessel vasculitis, with SLE (on MTX/Prednisone 5 mg daily), COPD (w/o O2; ex-40 pk yr cigarette smoker, D/C 1992), spondylolisthesis, diverticulosis coli, DJD, anxiety, depression, restless leg syndrome, possible lymphoproliferative disorder by 09/30/16: flow cytometry, renal cell CA post right nephrectomy, left oophrectomy, KUSH on CPAP, who presented to the [facility] 09/27/17 at 7:36 p.m., with nausea & vomiting X 1 (partially digested food, without bile or hematemesis ), and vague lower abdominal pain, allegedly since her colonoscopy of 09/23/17. Upon arrival, she was hemodynamically stable & afebrile, with O2 sat RA 97%. The patient was recently admitted to [facility] 09/04/17 to 09/11/17, treated with Cipro & Flagyl for suspected colitis/diverticulitis. 09/23/17: Colonoscopy to cecum per Dr. Miguel Mayes (done for screening, intermittent LGI bleeding, leukocytosis, & possible colitis)- left-sided diverticular disease especially in the sigmoid with mychosis, no colitis, normal mucosa, external hemorrhoids. *TI could not be entered, due to angulation. *No biopsies were done then. She has had multiple colonoscopies by Dr. Miguel Mayes for her Crohn's disease. She had 09/02/10: transanal excision of a benign inflammatory rectal polyp, per Dr. Wheatley. She has had numerous EGD per Dr. Miguel Mayes, last on 03/05/17 for GERD, at which point, no gross esophagitis or Paulson's esophagus were seen. There was a large hiatal hernia with Atif's erosions & antral gastritis, biopsies HP-negative, with minimal CAG. The patient's 5-ASA & MTX were continued , the latter for her SLE, not Crohn's. The patient claims the bowel prep for colonoscopy "irritated her colon". She then noted fecal incontinence with lower abdominal cramps "10 out of 10" worse with laughing or with movement. She denied any fevers, chills, sick contacts, recent travel, NSAIDs, chest pain, or shortness of breath. She also had chronic lower back and right knee pain, treated with Oxycodone. She was given Morphine, Dilaudid, IV Ceftriaxone & Flagyl in the ER. She was also complaining of chronic low back pain and knee pain. She was also complaining of migraine headache. The patient was initially made 23 hour observation. She was found to have a compression fracture of her T-L spine and was then made a full admission. Baseline HCT- mid 30's. She may have been hemoconcentrated on admission & her H/H dropped appropriately after IVF. Her n & V resolved. 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 She was lying in bed in NAD & tolerated a grilled cheese sandwich. Her IV Flagyl & Ceftriaxone were stopped on 09/27/17. At the time of the GI consult, she denied any abdominal pain, diarrhea, constipation, obstipation, tenesmus, rectal bleeding, change in stool caliber, or melena. She denied any GERD, odynophagia, dysphagia, hematemesis, or early satiety. She denied any acute arthralgias, aside from her chronic DJD, or rashes. 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 She denied any jaundice, fevers, chills, weight loss, significant change in appetite, CP, increased SOB, sx UTI or URI. There is no FHx GI Ca, IBD, additional GI disease, or inherited liver disease. 09/27/17: Admission labs- WBC 9.7 (76% gran, 7 gran Ab), H/H 13.4/40.3, MCV 97.6 , RDW 16.4, PLT 328, glu 105, BUN/Cr 14/0.9, GFR > 60, Na 145, K 3.8, HCO3 28, AG 14, nl amylase/lipase 32/45, Ca 9.9, albumin 4.1, globulin 2.8, TBil 1.1, DBil 0.4, alk phos 75, AST 27, ALT 35, troponin .02; U/A- clear yellow, 1.015, 6.5, micro- negative; neg nitrite, neg esterase. 09/28/17: WBC 10.3 (no left shift), H/H 11.8/34.7, MCV 98.1, RDW 15.6, PLT 275, BUN/Cr 11/0.8, GFR > 60, Na 142, *K 3.3, HCO3 26, AG 11, Mg 1.7, lactate 0.7, LDH 628 09/27/17: EKG- NSR @ 69, borderline LAD, without acute ischemia. 09/27/17: CT ABDOMEN AND PELVIS WITHOUT IV or PO CONTRAST- 1. Severe colonic diverticulosis. Inflammatory changes in the descending, sigmoid colon, and rectum are generalized without significant focality, potentially due to a mild generalized colitis. Focal diverticulitis is possible. No perforation or abscess. 2. Moderate-sized hiatal hernia. [I reviewed the above 09/27/17: CT AP w/o contrast with Dr. Hogan, of [facility], & the findings were very soft, without change from the prior 09/08/17: CT AP w/o contrast & probably reflect chronic diverticular changes, rather than colitis or focal diverticulitis, *especially since the 10/08: colonoscopy by Dr. Miguel Mayes revealed normal mucosa!]. 09/28/17: MR LUMBAR SPINE WITHOUT AND WITH CONTRAST- There are acute compression fractures of the T10 and L3 vertebral bodies with subtle impaction of the upper endplates at each of these 2 levels. There is anterior wedging at T10 with approximately 10% vertebral body height loss anteriorly. 40% vertebral body height loss centrally at L3. No overt retropulsion of the posterior cortex at either of these 2 levels. In addition to these acute findings there is advanced multilevel degenerative spondylosis of the lumbar spine with grade 2 anterolisthesis of L4 on L5 related to advanced facet degenerative changes at this level. Severe canal stenosis at L3-L4. Moderate canal stenosis at L1-L2, L2-L3, and L4-L5. There is moderate compression of the foraminal segment of the left L4 nerve root related to multifactorial degenerative changes at L4-L5. *Based on history, clinical grounds, exam, review of radiographic studies with Dr. Hogan, comparing recent and current CT AP, & *recent findings of 09/23/17: colonoscopy, I do not feel that the patient has colitis, diverticulitis, or focal segmmental colitis, but rather, probable painful diverticular disease. She had a benign abdominal exam. She was eating solids uneventfully. She had no diarrhea since coming here. The above was superimposed on chronic back pain, with multiple TL compression fractures. *SUGGEST: High fiber diet. Fibercon 2 tabs daily. May continue outpatient Asacol HD 800 mg po BID & probiotics. Would add anti-spasmotic (i.e.- Levsin SL .125 mg po TID as needed, or Bentyl 20 mg po TID). No NSAIDS. No need for antibiotics from GI perspective. If diarrhea recurs, check stool for C. difficile, C&S, Shiga toxin, & fecal calprotectin (Crohn's appears stable). Will defer ESR & CRP for now. The patient's MTX & Prednisone may be continued as per rheumatology, but the patient was on these purely for her SLE, NOT her Crohn's. If fecal incontinence remains an issue, the patient can follow-up with Dr. Wheatley as an outpatient, as he has done a previous transanal excision of an inflammatory rectal polyp. Otherwise, the patient can follow-up with Dr. Miguel Mayes for GI as an outpatient. K+ repletion, pain control, treatment of compression fractures T-L spine, DVT propylaxis, & treatment of other numerous medical issues, etc., as per the medical team. The above was discussed with the medical housestaff in great detail. *Further inpatient GI follow-up as needed. Problem List: 1. Diverticulosis of colon without diverticulitis 2. Crohn's disease 3. Umbilical hernia 4. Abdominal pain Copies To: Nessa Williamson MD; Roby Wheatley Jr., DO; Russell Mack MD; Patrick Sevilla MD; Landon Mayes MD. Consult Acknowledgment - Thank you for your consult request. [facility] for GI as an outpatient. The above was discussed with the medical housestaff in great detail. Copies To: Nessa Williamson MD; Roby Wheatley Jr., DO; Russell Mack MD; Patrick Sevilla MD; Landon Mayes MD. Consult Acknowledgment - Thank you for your consult request.
--- NOTE | 2017-09-28 16:16 | Cons- Neurosurgical ---
General Information and HPI Consulting Request Date of Consult: 09/28/17 Requested By: Mayra Sykes MD Reason for Consult: lower back pain, fecal incontinence History of Present Illness: 77yoF presents to the emergency department with complaints of generalized weakness and malaise, with abdominal pain, low back pain and fecal soilage. Patient was hospitalized in August 2017 with colitis, and approximately 1 week ago underwent outpatient colonoscopy to follow up on this diagnosis. Since taking her prep for colonoscopy, she has been having diarrhea with mild fecal incontinence, which is new for her. She does mention she had fecal incontinence many years ago, and was seen by colorectal surgery who performed a procedure that resolved this issue. She has chronic lower back pain for many years, which has worsened over the last few months. She is followed by Dr. Eli at [facility] for this chronic lower back pain who is actively involved in her outpatient care. When arriving to the hospital yesterday, patient underwent CT scan of abdomen and pelvis which showed some spondylolisthesis and degenerative changes of the spine. Neurosurgical consult was requested due to concern that abdominal pain and fecal incontinence related to the spinal abnormalities seen on CT. Allergies/Medications Allergies: Coded Allergies: Iodinated Contrast- Oral and IV Dye (Iodinated Contrast Media - IV Dye) ( Intermediate, CAT SCAN DYE RED, FLUSHING, FEELING HOT, RASH 02/28/16) lactose (LACTOSE INTOLERANT 09/26/16) Home Med List: Albuterol Sulfate (Proair Hfa) 90 MCG HFA.AER.AD 2 PUF INH 4XDAILY PRN COPD ( Reported) Ascorbic Acid (Vitamin C) 1,000 MG TABLET 1 TAB PO DAILY SUPPLEMENT (Reported ) Aspirin (Ecotrin*) 81 MG TABLET.DR 1 TAB PO DAILY HEART/BLOOD (Reported) Aspirin/Acetaminophen/Caffeine (Excedrin Extra Strength Caplet) 250 MG-250 MG-65 MG TABLET 2 TAB PO Q8H PRN HEADACHE (Reported) Bacillus Coagulans (Digestive Advantage) 250 MILLION CELL TAB.CHEW 1 TAB PO DAILY PROBIOTIC (Reported) Benzonatate 100 MG CAPSULE 100 MG PO TID cough Buspirone HCl 7.5 MG TABLET 1 TAB PO BID PRN ANXIETY (Reported) Butalb/Acetaminophen/Caffeine (Jzevleny-Qlrovmsnztdmb-Qaxm Cp) 50 MG-325 MG-40 MG CAPSULE 1 TAB PO Q6H PRN HILLS (Reported) Calcium Carbonate/Vitamin D3 (Calcium + Vitamin D Tablet) 600 MG-200 TABLET 1 TAB PO DAILY SUPPLEMENT (Reported) Cholecalciferol (Vitamin D3) (Vitamin D) 5,000 UNIT TABLET 2 TAB PO AD PRN supplement (Reported) Ciprofloxacin HCl (Cipro) 500 MG TABLET 1 TAB PO BID colitis Cyanocobalamin (Vitamin B-12) 1,000 MCG TABLET 1 TAB PO DAILY SUPPLEMENT ( Reported) Duloxetine HCl (Cymbalta) 60 MG CAPSULE.DR 1 CAP PO QHS DEPRESSION (Reported) Ferrous Sulfate (IRON) 325 MG (65 MG IRON) TABLET 1 TAB PO DAILY SUPPLEMENT ( Reported) Fluticasone Propionate (Flovent Hfa) 110 MCG/ACTUATION AER.W.ADAP 2 PUF INH BID COPD Folic Acid 1 MG TABLET 1 TAB PO DAILY SUPPLEMENT (Reported) Ketoconazole 2 % CREAM..G. 1 MCKINLEY TOP BID UNDER BREASTS/GROIN (Reported) apply to affected area(s) Krill Oil/[place]-3/Dha/Epa (Cvs [place]-3 Krill Oil 300 Sfgl) 300 MG-90 MG (27 MG- 45 MG) CAPSULE 1 TAB PO DAILY SUPPLEMENT (Reported) Lactobacillus Acidophilus (Acidophilus) 1 EACH CAPSULE 1 CAP PO QAM PROBIOTIC (Reported) Mesalamine (Asacol Hd) 800 MG TABLET.DR 2 TAB PO TID CROHNS (Reported) Methotrexate 2.5 MG TABLET 3 TAB PO BID ON LUPUS (Reported) Metoprolol Tartrate 50 MG TABLET 1 TAB PO DAILY HTN (Reported) Metronidazole (Flagyl) 250 MG TABLET 1 TAB PO Q8 colitis Niacin (Niaspan) 500 MG TAB.ER.24H 1 TAB PO DAILY CHOLESTEROL (Reported) [NU-ZYMES] LACTOSE INTOLERANT ENZYMES (Reported) Oxycodone HCl 5 MG TABLET 1 TAB PO Q6H PRN PAIN (Reported) Prednisone 5 MG TABLET 1 TAB PO DAILY SLE (Reported) Rabeprazole Sodium 20 MG TABLET.DR 1 TAB PO BID ACID REFLUX (Reported) Ropinirole HCl (Requip) 4 MG TABLET 1 TAB PO QPM RLS (Reported) Tylenol With Codeine (Tylenol With Codeine #3 Tablet) 300 MG-30 MG TABLET 1 TAB PO Q4-6 PRN PRN PAIN (Reported) Umeclidinium Brm/Vilanterol Tr (Anoro Ellipta 62.5-25 Mcg INH) 62.5 MCG-25 MCG/ ACTUATION BLST.W.DEV 1 PUFF INH DAILY SOB (Reported) Past History Medical History Neurological: migraine, restless leg syndrome EENT: allergies, CATARACT REMOVAL BOTH EYE Cardiovascular: CAD, hypertension, hyperlipidemia, NSTEMI (2 YEARS AGO) Respiratory: COPD, obstructive sleep apnea, CPAP Gastrointestinal: Crohn's disease, diverticulitis, GERD, lactose intolerance Renal: nephrectomy (right), urinary incontinence Musculoskeletal: osteoarthritis, SPONDYLOLISTHESIS BONE SPUR- R HEEL R KNEE TORN MENISCUS CHRONIC BACK PAIN SKIN LUPUS Psychiatric: anxiety, depression Cancer(s): renal cancer Other Medical Hx: DISCOID LUPUS Surgical History Pertinent Surgical History: appendectomy, cataract removal, knee replacement ( left), right nephrectomy left oophorectomy TONSILLECTOMY HEMORRHOID REMOVAL bilateral shoulder replacements Family History Relations & Conditions If Any: FATHER FH: ALS (amyotrophic lateral sclerosis) MOTHER FH: heart failure BROTHER FH: hypertension Psychosocial History Who Do You Live With? self Services at Home: Home Health Aide, Nursing, Physical Therapy Primary Language: Yemeni ETOH Use: denies use Illicit Drug Use: denies illicit drug use Living Will? yes Functional Ability ADLs Independent: dressing, eating, toileting, bathing. Ambulation: cane IADLs Independent: finances, telephone, medication admin. Needs Assist: shopping, housework, food prep, transportation. Exam & Diagnostic Data Vital Signs and I&O Vital Signs Date Time Temp Pulse Resp B/P B/P Pulse O2 O2 Flow FiO2 Mean Ox Delivery Rate 09/28 1544 976.0 09/28 1519 95 18 82/50 95 Room Air 09/28 0941 97.9 74 20 134/63 94 Room Air 09/28 0903 96.3 68 20 116/58 09/28 0629 96.3 68 20 116/58 95 Room Air 09/28 0212 97.5 80 18 126/56 95 Room Air 09/27 2217 98.6 86 18 136/60 94 Room Air 09/27 2002 97.0 76 20 117/65 97 Room Air Intake & Output 09/28 1600 09/28 0800 09/28 0000 09/27 1600 09/27 0800 09/27 0000 Intake Total 240 580 Output Total 200 300 Balance 40 280 Intake, IV 100 Intake, Oral 240 480 Output, Urine 200 300 Patient 194 lb Weight Weight Reported by Patient Measurement Method Physical Exam: gen- nad card- s1s2 rrr pulm- ctab ext- gross sensation intact bl le, calves soft nt, +plantar/dorsiflexion bl, palp pedal pulses. anorectal- intact voluntary rectal tone Imaging Results: EXAM TYPE: CAT - CT ABD & PELVIS W/O IV CONTRAS EXAMINATION: CT ABDOMEN AND PELVIS WITHOUT CONTRAST CLINICAL INFORMATION: Profuse diarrhea x4 days status post colonoscopy. Rule out colitis. COMPARISON: 09/08/2017 TECHNIQUE: Multidetector volumetric imaging was performed from the superior aspect of the liver through the pubic symphysis. Sagittal and coronal reformatted images were obtained on the technologist's workstation. DLP: 757 mGy-cm FINDINGS: LUNG BASES: Minimal dependent atelectasis. Heart is normal in size. There is a moderate-sized sliding-type esophageal hiatal hernia. LIVER, GALLBLADDER, AND BILIARY TREE: The liver is normal in size, shape, and attenuation. No focal hepatic lesion or biliary ductal dilatation is present. The gallbladder is unremarkable with no evidence of radiopaque gallstones, gallbladder wall thickening, or obvious pericholecystic inflammatory changes. PANCREAS: Mild fatty replacement. No focal lesions are acute findings. Specifically, no evidence of pancreatitis or pancreatic ductal dilatation. SPLEEN: Unremarkable. ADRENAL GLANDS: Right adrenal gland appears surgically absent. Multiple surgical clips are noted in this region. Left adrenal gland is normal. KIDNEYS AND URETERS: Right kidney appears surgically absent. Left kidney is in normal in size with normal cortical thickness. No focal lesions. No nephrolithiasis or hydronephrosis. BLADDER: Unremarkable. GASTROINTESTINAL TRACT: Moderate-sized hiatal hernia. There is moderate to severe colonic diverticulosis in the descending and sigmoid colon. At the sigmoid colon, there is pericolonic fat stranding and mild colonic wall thickening, indicative of acute inflammation. There is mild fat stranding and wall thickening of the descending colon and rectum as well. No intraperitoneal free air or free fluid. ABDOMINAL WALL: There is a fat-containing umbilical hernia. No bowel involvement. LYMPH NODES: Multiple subcentimeter mesenteric and retroperitoneal lymph nodes are noted. No pathologic adenopathy. VASCULAR: Calcific atherosclerosis is present in the abdominal aorta and iliac arteries. No aneurysmal dilatation. PELVIC VISCERA: The uterus and adnexa are unremarkable. OSSEOUS STRUCTURES: There is moderate severe multilevel degenerative disc disease in the thoracolumbar spine with severe facet arthropathy in the lower lumbar spine and grade 2 anterolisthesis of L4 on L5. A superior endplate compression deformity is present at the T10 vertebral body with minimal loss of vertebral body height. A nondisplaced fracture is also present in the left parasymphyseal pubic bone. IMPRESSION: 1. Severe colonic diverticulosis. Inflammatory changes in the descending, sigmoid colon, and rectum are generalized without significant focality, potentially due to a mild generalized colitis. Focal diverticulitis is possible. No perforation or abscess. 2. Moderate-sized hiatal hernia. EXAM TYPE: MRI - MRI-LUMBAR SPINE W & W/O EVERARDO EXAMINATION: MR LUMBAR SPINE WITHOUT AND WITH CONTRAST CLINICAL INFORMATION: Evaluate for nerve compression. Low back pain. Fecal incontinence. COMPARISON: Lumbar spine MRI 06/22/2017. TECHNIQUE: MRI of the lumbar spine was obtained before and after intravenous administration of 9 mL Gadavist. FINDINGS: There is grade 2 anterolisthesis of L4 on L5 that appears to be related to advanced facet degenerative changes at this level. Slight grade 1 retrolisthesis of L1 on L2 and L2 on L3. There is bone marrow edema associated with an acute upper L3 endplate fracture resulting in 40% vertebral body height loss centrally. There is also an acute compression fracture of the T10 vertebral body with subtle impaction of the upper endplate resulting in 10% vertebral body height loss anteriorly. There is no overt retropulsion of posterior cortex at either of these 2 levels. There are mixed type I and type II degenerative endplate changes at L1-L2 and L4-L5. There is loss of intervertebral disc height and T2 signal intensity at multiple levels within the lumbar spine related to disc degeneration. The tip of the conus medullaris is located at the level of L1-L2. No mass effect the conus. Visualized distal cord signal intensity is normal. At L1-L2 there is a diffusely bulging disc. Bilateral facet degenerative change. Moderate canal stenosis. No foraminal nerve root compression. At L2-L3 there is a diffusely bulging disc causing ventral flattening of the thecal sac. Advanced facet degenerative change. Circumferential prominence of the epidural fat in conjunction with the degenerative changes causes compression of the thecal sac and near complete effacement of subarachnoid space. Moderate canal stenosis. No foraminal nerve root compression. At L3-L4 there is a diffuse annular bulge. Advanced facet degenerative change. Circumferential prominence of the epidural fat in conjunction with a degenerative changes cause compression of the thecal sac and complete effacement of subarachnoid space. Severe canal stenosis. No foraminal nerve root compression. At L4-L5 there is a diffuse annular bulge/pseudobulge. Advanced facet degenerative change. Moderate canal stenosis. Moderate compression of the foraminal segment of the left L4 nerve root. At L5-S1 there is a diffuse annular bulge. Advanced facet degenerative change. No canal stenosis. No foraminal nerve root compression. Postcontrast images reveal no abnormal enhancement. There chronic changes of a right nephrectomy. There is symmetric atrophy of the psoas and paraspinal muscles. IMPRESSION: There are acute compression fractures of the T10 and L3 vertebral bodies with subtle impaction of the upper endplates at each of these 2 levels. There is anterior wedging at T10 with approximately 10% vertebral body height loss anteriorly. 40% vertebral body height loss centrally at L3. No overt retropulsion of the posterior cortex at either of these 2 levels. In addition to these acute findings there is advanced multilevel degenerative spondylosis of the lumbar spine with grade 2 anterolisthesis of L4 on L5 related to advanced facet degenerative changes at this level. Severe canal stenosis at L3-L4. Moderate canal stenosis at L1-L2, L2-L3, and L4-L5. There is moderate compression of the foraminal segment of the left L4 nerve root related to multifactorial degenerative changes at L4-L5. Assessment/Plan Assessment/Plan [id number] with chronic degenerative spondylolisthesis L4-L5 not requiring acute neurosurgical intervention, with some degree of fecal incontinence likely due to colonoscopy prep and colitis, not due to cord compression. P- Case discussed and images reviewed with Dr. Willis. Abnormalities appear to be chronic and not causing any acute neurosurgical emergency. Patient seen by [facility], and is followed by Dr. Alex Eli for her chronic back pain. Recommend to continue this follow-up, and may be seen by [facility] if any neurosurgical intervention is needed in the future. Thank you for this consultation Consult Acknowledgment - Thank you for your consult request. Consult Acknowledgment - Thank you for your consult request.
--- NOTE | 2017-09-28 17:10 | Discharge Summary ---
Visit Information Visit Dates Admission Date: 09/28/17 Discharge Date: 10/08/2017 Hospital Course Course Attending Physician: Jay HUFF,Kendy Primary Care Physician: Frederick HUFF,[place] Hospital Course: Ms. 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 Sevilla), COPD, spondylolysis, diverticulosis, osteoarthritis, depression, KUSH on CPAP, right nephrocystectomy, recent history of colonoscopy on September 23, presented to ED with chief complain of diarrhea and lower abdominal pain since then. On admission Labs: WBC 9.7, neutrophils 76%, hemoglobin 13.4, hematocrit 40.3, platelets 328, sodium 145, potassium 3.8, chloride 104, bicarbonate 28, BUN 1, creatinine 0.9, glucose 105, calcium 9.9, LFT unremarkable, troponin 0.02, lipase 45, UA unremarkable CT abdomen and pelvis without IV contrast: 1. Severe colonic diverticulosis. Inflammatory changes in the descending, sigmoid colon, and rectum are generalized without significant focality, potentially due to a mild generalized colitis. Focal diverticulitis is possible. No perforation or abscess. 2. Moderate-sized hiatal hernia. 3. moderate severe multilevel degenerative disc disease in the thoracolumbar spine with severe facet arthropathy in the lower lumbar spine and grade 2 anterolisthesis of L4 on L5. A superior endplate compression deformity is present at the T10 vertebral body with minimal loss of vertebral body height. Patient was admitted to general medical floor #Colitis Patient reported history of lower abdominal pain and diarrhea since September [address] abdomen reading of clonic inflammatory changes thought to be overreading of chronic mucosal changes of long-standing diverticulosis. GI consultation was obtained with no recommendation for further management or investigation since patient symptoms resolved completely, didn't have any diarrhea in hospital, and was started on oral intake that she tolerated well. Recommendation to start antispasmodic Hyoscyamine 0/125 mg, Fibercon and probiotics. C. difficile was obtain with negative result. #Intractable low back pain On admission, patient also reported intractable lower back pain, CT abdomen and pelvis showed severe diffuse degenerative changes of the spine with mild compression deformity at T10. MRI lumbar spine revealed acute compression fracture of T10 and L3 in addition to evidence of canal stenosis (Severe canal stenosis at L3-L4. Moderate canal stenosis at L1-L2, L2-L3, and L4-L5. There is moderate compression of the foraminal segment of the left L4 nerve root related to multifactorial degenerative changes at L4-L5.) Neurosurgery consultation was obtained with no recommendation for any acute neurosurgical procedure since this is a chronic problem and patient is following with Dr. Sher at [facility] and Dr. Alex Eli for her chronic back pain. Due to significant pain, she underwent fluoroscopic-guided lumbar epidural steroid injection on Thursday10/02/17. Patient has some relief and was continued on by mouth Dilauded 2 mg every 6 when necessary. For definitive treatment, patient was scheduled for vertebroplasty on 10/05/17 for L3 only. Patient reported severe pain afterwards that required IV dialudid, IR specialist Dr. Huynh evaluated her and recommended to continue pain medication and if pain persists obtain MRI of lumbar spine. MRI lumbar spine 10/07/2016-no acute compression fracture or new spinal canal stenosis. Expected postop findings. Degenerative changes are stable. Discharged on oral diluted 4 mg every 6 hours and advised to follow-up with PCP. #Hives Patient had multiple episodes of widespread hives, no report for shortness of breath or chest pain. All of the episodes improved with Benadryl. Source is unknown. #Leukocytosis Given that patient is immunocompromised with methotrexate and chronic prednisone use 5 mg, close follow up of white blood cell was maintained to rule out any hidden infection. Leukocytosis with peak 19.6, no bandemia. Cultures remain negative, and patient is asymptomatic. DVT prophylaxis ALPS Code full Diet regular/high fiber diet Images MRI lumbar spine IMPRESSION: There are acute compression fractures of the T10 and L3 vertebral bodies with subtle impaction of the upper endplates at each of these 2 levels. There is anterior wedging at T10 with approximately 10% vertebral body height loss anteriorly. 40% vertebral body height loss centrally at L3. No overt retropulsion of the posterior cortex at either of these 2 levels. In addition to these acute findings there is advanced multilevel degenerative spondylosis of the lumbar spine with grade 2 anterolisthesis of L4 on L5 related to advanced facet degenerative changes at this level. Severe canal stenosis at L3-L4. Moderate canal stenosis at L1-L2, L2-L3, and L4-L5. There is moderate compression of the foraminal segment of the left L4 nerve root related to multifactorial degenerative changes at L4-L5. MRI knee ----obtained for out patient request IMPRESSION: 1. New mild fraying of the undersurface of the posterior horn of the medial meniscus. New degenerative signal and possible superimposed undersurface tear at the junction of the posterior horn and body. 2. No change in focal moderate arthrosis at the junction of the apex and medial facet of the patella and slight worsening focal [id number] arthrosis in the superolateral femoral trochlea. 3. Slight worsening mild arthrosis in the weightbearing medial compartment. Allergies: Coded Allergies: Iodinated Contrast- Oral and IV Dye (Iodinated Contrast Media - IV Dye) ( Intermediate, CAT SCAN DYE RED, FLUSHING, FEELING HOT, RASH 02/28/16) lactose (LACTOSE INTOLERANT 09/26/16) Pertinent Lab Results: IMPRESSION: 1. No acute compression fracture or new spinal canal or neural foraminal stenosis. 2. Expected postoperative findings related to vertebral body augmentation at L3 with no further height loss. Stable mild compression fracture at T10. 3. Redemonstration of advanced multilevel spondylotic changes in the lumbar spine which are superimposed on epidural lipomatosis with resulting effacement of intrathecal CSF and severe spinal canal stenosis at L2-L3 and L3-L4 and moderate spinal canal stenosis at L4-L5. The degenerative changes are stable since 09/28/2017. Disposition Summary Disposition Principal Diagnosis: Colitis Additional Diagnosis: Acute compression fracture Discharge Disposition: home health services Discharge Instructions General Discharge Information Code Status: Full Code Patient's Diet: Regular/high-fiber Patient's Activity: As tolerated Follow-Up Instructions/Appts: -PLEASE FOLLOW UP WITH YOUR PCP AFTER DISCHARGE -PLEASE FOLLOW UP WITH DR. HILARIO GI DOCTOR AFTER DISCHARGE -PLEASE TAKE YOUR PAIN MEDICATION DIRECTED -PLEASE FOLLOW UP WITH YOUR PAIN MANAGMENT DOCTOR [facility] Medications at Discharge Discharge Medications: Stop taking the following medications: [NU-ZYMES] ORAL As Directed Tylenol With Codeine (Tylenol With Codeine #3 Tablet) 300 MG-30 MG TABLET ORAL EVERY 4-6 HOURS NEEDED as needed for PAIN Ciprofloxacin HCl (Cipro) 500 MG TABLET ORAL TWICE DAILY Qty = 13 Metronidazole (Flagyl) 250 MG TABLET ORAL EVERY 8 HOURS Qty = 19 Continue taking these medications: Duloxetine HCl (Cymbalta) 60 MG CAPSULE.DR 1 Capsule ORAL TAKE AT BEDTIME Comments: Last Taken: 10/07/17 Time: 10:40 PM Aspirin/Acetaminophen/Caffeine (Excedrin Extra Strength Caplet) 250 MG-250 MG-65 MG TABLET 2 Tablet ORAL Q8H as needed for HEADACHE Comments: Last Taken:10/08/17 Time:12:05 Krill Oil/[place]-3/Dha/Epa ([facility] [place]-3 Krill Oil 300 Sfgl) 300 MG-90 MG (27 MG- 45 MG) CAPSULE 1 Tablet ORAL DAILY Comments: NOT GIVEN IN HOSPITAL Metoprolol Tartrate (Metoprolol Tartrate) 50 MG TABLET 1 Tablet ORAL DAILY Comments: Last Taken: 10/08/17 Time: 9:28 AM Methotrexate (Methotrexate) 2.5 MG TABLET 3 Tablet ORAL BID ON Qty = 48 Comments: Last Taken:10/08/17 Time: 1:10 PM Albuterol Sulfate (Proair Hfa) 90 MCG HFA.AER.AD 2 Puff Inhale through mouth 4XDAILY as needed for COPD Qty = 8 Comments: NOT GIVEN IN HOSPITAL Folic Acid (Folic Acid) 1 MG TABLET 1 Tablet ORAL DAILY Qty = 60 Comments: NO GIVEN IN HOSP Ferrous Sulfate (IRON) 325 MG (65 MG IRON) TABLET 1 Tablet ORAL DAILY Comments: NOT GIVEN IN HOSPITAL Last Taken:10/08/17 Time:9:28 AM Buspirone HCl (Buspirone HCl) 7.5 MG TABLET 1 Tablet ORAL TWICE DAILY as needed for ANXIETY Qty = 40 Comments: NOT GIVEN IN HOSPITAL Umeclidinium Brm/Vilanterol Tr (Anoro Ellipta 62.5-25 Mcg INH) 62.5 MCG-25 MCG/ ACTUATION BLST.W.DEV 1 PUFF Inhale through mouth DAILY Qty = 60 Comments: NOT GIVEN IN HOSPITAL Rabeprazole Sodium (Rabeprazole Sodium) 20 MG TABLET.DR 1 Tablet ORAL TWICE DAILY Qty = 180 Comments: NOT GIVEN Niacin (Niaspan) 500 MG TAB.ER.24H 1 Tablet ORAL DAILY Qty = 90 Comments: Last Taken: 10/07/17 Time: 5 PM Mesalamine (Asacol Hd) 800 MG TABLET.DR 2 Tablet ORAL THREE TIMES DAILY Qty = 540 Comments: Last Taken: 10/08/17 Time: 9:28 AM Ketoconazole (Ketoconazole) 2 % CREAM..G. 1 Application On the skin TWICE DAILY Instructions: apply to affected area(s) Comments: NOT GIVEN IN HOSP Bacillus Coagulans (Digestive Advantage) 250 MILLION CELL TAB.CHEW 1 Tablet ORAL DAILY Comments: PROBIOTIC GIVEN IN HOSPITAL 10/08/17 @ 9:28 AM Calcium Carbonate/Vitamin D3 (Calcium + Vitamin D Tablet) 600 MG-200 TABLET 1 Tablet ORAL DAILY Comments: Last Taken: NOT GIVEN DURING THIS ADMISSION Time: Ascorbic Acid (Vitamin C) 1,000 MG TABLET 1 Tablet ORAL DAILY Comments: Last Taken: NOT GIVEN DURING THIS ADMISSION Time: Aspirin (Ecotrin*) 81 MG TABLET.DR 1 Tablet ORAL DAILY Comments: Last Taken:10/08/17 Time:2:45 PM Cyanocobalamin (Vitamin B-12) 1,000 MCG TABLET 1 Tablet ORAL DAILY Comments: Last Taken: NOT GIVEN DURING THIS ADMISSION Time: Cholecalciferol (Vitamin D3) (Vitamin D) 5,000 UNIT TABLET 2 Tablet ORAL As Directed as needed for supplement Comments: Last Taken: NOT GIVEN DURING THIS ADMISSION Time: Benzonatate (Benzonatate) 100 MG CAPSULE 100 Milligram ORAL THREE TIMES DAILY Qty = 30 Comments: Last Taken: NOT GIVEN DURING THIS ADMISSION Time: Fluticasone Propionate (Flovent Hfa) 110 MCG/ACTUATION AER.W.ADAP 2 Puff Inhale through mouth TWICE DAILY Qty = 1 Comments: Last Taken: NOT GIVEN DURING THIS ADMISSION Time: Ropinirole HCl (Requip) 4 MG TABLET 1 Tablet ORAL Every night Comments: Last Taken: 10/07/17 Time: 10:45 PM Lactobacillus Acidophilus (Acidophilus) 1 EACH CAPSULE 1 Capsule ORAL Every Morning Comments: Last Taken: 10/08/17 Time: 9:28 AM Butalb/Acetaminophen/Caffeine (Lcfrfnug-Eudcmtwpyagle-Mvvf Cp) 50 MG-325 MG-40 MG CAPSULE 1 Tablet ORAL Q6H as needed for [place] Prednisone (Prednisone) 5 MG TABLET 1 Tablet ORAL DAILY Comments: Last Taken: 10/08/17 Time: 9:28 AM Oxycodone HCl (Oxycodone HCl) 5 MG TABLET 1 Tablet ORAL Q6H as needed for PAIN Qty = 15 This prescription has been renewed Start taking the following new medications: Acetaminophen (Tylenol) 325 MG TABLET 650 Milligram ORAL EVERY SIX HOURS NEEDED as needed for PAIN SCALE 4-6 ( MODERATE) Qty = 30 No Refills Instructions: . Comments: Last Taken:10/08/17 Time:8:20 AM Benzocaine/Menthol (Chloraseptic Sore Throat Lozng) 6 MG-10 MG LOZENGE 1 Lozenge ORAL EVERY 2 HOURS NEEDED as needed for Sore Throat Qty = 30 No Refills Instructions: . Comments: Last Taken:10/07/17 Time:10 AM Calcium Polycarbophil (Fibercon) 625 MG TABLET 2 Tablet ORAL DAILY Qty = 30 No Refills Instructions: . Comments: Last Taken:10/08/17 Time:9:28 AM Hydromorphone HCl (Dilaudid) 4 MG TABLET 1 Tablet ORAL EVERY 6 HOURS NEEDED as needed for BACK PAIN Qty = 15 No Refills Instructions: . Comments: Last Taken:10/08/17 Time:2:20 PM Hyoscyamine (Levsin) 0.125 MG TABLET 1 Tablet ORAL THREE TIMES DAILY as needed for Abdominal pain Qty = 90 No Refills Instructions: . Cyclobenzaprine HCl (Cyclobenzaprine HCl) 5 MG TABLET 5 Milligram ORAL TWICE DAILY as needed for SPASMS Qty = 20 No Refills Copies To: Nikky HUFF,Parminder Rivera; Trupti HUFF,Henry Chavez; Sreedhar HUFF,Alex Nascimento; Frederick HUFF, Russell; Sugey HUFF,Landon Burns
[2017-09-28 20:00] VITALS: BP 92/58
[2017-09-28 22:34] VITALS: BP 122/64
[2017-09-29 04:56] VITALS: BP 112/70
[2017-09-29 08:06] LABS: ABSOLUTE BASOPHIL COUNT 0.1 /CUMM (0.0-0.2); ABSOLUTE EOSINOPHIL COUNT 0 /CUMM (0.0-0.7); ABSOLUTE GRANULOCYTE CT 9.1 /CUMM (1.4-6.5); ABSOLUTE LYMPH COUNT 1.5 /CUMM (1.2-3.4); BASOPHIL % 0.5 % (0.0-2.0); EOSINOPHIL % 0 % (0-5); GRANULOCYTE % 78.3 % (42.2-75.2); HEMATOCRIT 35.1 % (37-47); MEAN CORPUSCULAR HGB 32.6 PG (27.0-31.0); MEAN CORPUSCULAR HGB CONC 33.3 G/DL (33.0-37.0); MEAN CORPUSCULAR VOLUME 97.9 FL (81.0-99.0); MEAN PLATELET VOLUME 9.8 FL (7.4-10.4); PLATELET COUNT 257 /CUMM (130-400); RBC DISTRIBUTION WIDTH 15.7 % (11.5-14.5); RED BLOOD CELL CT 3.59 /CUMM (4.20-5.40); WHITE BLOOD CELL COUNT 11.6 /CUMM (4.8-10.8)
--- NOTE | 2017-09-29 08:10 | PN- Housestaff ---
See Addendum Subjective Follow-up For: Colitis Subjective: Patient was seen and examined this morning, she denied any abdominal pain at the moment, reported having abdominal pain and low back pain when she moves around. No bowel movement since admission. Denied any dysuria however continue to have urine incontinence. Vital signs are stable, afebrile. Yesterday patient had hypotension 82/50, however a symptomatic. I decreased the dilauded to 0.6 mg every 6 instead of every 4 hours for severe pain. Blood pressure improved. Patient reported weaning off dilauded effect within 4 hours and was requested to have it every 4 hours, order was changed overnight. Will hold off Lidoderm patch for now since she had Butrans pain patch in place from [facility]. Review of Systems Constitutional: Reports: see HPI. Objective Last 24 Hrs of Vital Signs/I&O Vital Signs Date Time Temp Pulse Resp B/P B/P Pulse O2 O2 Flow FiO2 Mean Ox Delivery Rate 09/29 0456 98.0 86 20 112/70 94 Room Air 09/28 2234 98.4 68 20 122/64 95 Room Air 09/28 2000 98.0 73 20 92/58 94 Room Air 09/28 1901 96.8 68 18 112/58 94 Room Air 09/28 1752 116/57 09/28 1624 88 104/50 09/28 1544 976.0 09/28 1519 95 18 82/50 95 Room Air 09/28 0941 97.9 74 20 134/63 94 Room Air Intake & Output 09/29 1600 09/29 0800 09/29 0000 Intake Total 200 Output Total Balance 200 Intake, Oral 200 Patient 87.997 kg Weight Physical Exam General Appearance: Alert, Oriented X3, Cooperative Skin: No Rashes Skin Temp/Moisture Exam: Warm/Dry HEENT: Atraumatic, PERRLA, EOMI, Mucous Membr. 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 Sevilla), COPD, spondylolysis, diverticulosis, osteoarthritis, depression, KUSH on CPAP, right nephrocystectomy, recent history of colonoscopy on September 23, history of diarrhea and lower abdominal pain since then. Patient main complaints today are lower abdominal pain and lower back pain. Patient today is doing much better in terms of pain. Pain improved on rest but still gets some pain when she moves around. Continue to be on Dilaudid 0.6 every 4 hours in addition to narcotic patch Butrans. This morning her vital signs are stable, afebrile with blood pressure 112/70 and pulse rate 86. Lab was revealed anemia 11.7/35.1, mild leukocytosis 11.6 with no pand cells and setting of chronic steroid use. Chemistry still bending. GI consultation was obtained yesterday and no farther recommendation as they don't thing that is an acute flareup of colitis at this point. Patient to tolerate low-fat diet well. Plan -GI consultation was obtained, thanks for recommendation. No recommendation for farther management or investigation since patient symptoms improved abdominal pain and no diarrhea, tolerating oral intake well -Neurosurgery consultation was obtained, thanks for recommendation. Images were reviewed, no any acute neurosurgical emergency. Recommendation to continue follow-up with Dr. Alex Eli for her chronic back pain, and may be seen by Dr. Sher at [facility] if any neurosurgical intervention is needed in the future -Pain management Butrans narcotic patch, Dilauded 0.6 Q4, oxycodone 5mg Q6 PRN -Antispasmodic Hyoscyamine 0/125 mg -Fibercon and probiotics -I am contacting Dr. ELI the pain menegment doctor, waiting for call back to obtain recommendation for increasing oxycodone dose in sitting of Butrans narcotic patch -PT evaluation and treat pending -Follow up urine culture negative after 1 day -Follow up C. difficile pending recepit -Patient is tolerating low fiber diet well DVT prophylaxis Lovenox Code full Diet low fiber Problem List: 1. Back pain 2. Colitis Pain Ratin Pain Location: Lower abdominal pain and low back pain Pain Goal: Pain 4 or less Pain Plan: See medication Tomorrow's Labs & Rationales: CBC
[2017-09-29 14:51] VITALS: BP 140/68
[2017-09-29 22:11] VITALS: BP 126/76
[2017-09-30 06:09] VITALS: BP 118/72
--- NOTE | 2017-09-30 10:40 | PN- Housestaff ---
Hernandez HUFF,[facility] 09/30/17 1039: Subjective Follow-up For: Colitis Subjective: Patient was seen and examined this morning, afebrile, vital signs stable. Reported to bowel movement of soft stool, no dysuria, no fecal incontinence. Patient reported back pain 04/30 NOT associated with weakness. Abdominal pain improved. Review of Systems Constitutional: Reports: see HPI. Objective Last 24 Hrs of Vital Signs/I&O Vital Signs Date Time Temp Pulse Resp B/P B/P Pulse O2 O2 Flow FiO2 Mean Ox Delivery Rate 09/30 1410 98.4 71 20 102/64 92 09/30 0609 98.3 95 20 118/72 97 Room Air 09/29 2211 98.3 71 20 126/76 95 Room Air Intake & Output 09/30 1600 09/30 0800 09/30 0000 Intake Total 625 250 930 Output Total Balance 625 250 930 Intake, IV 10 10 Intake, Oral 625 240 920 Number 0 Bowel Movements Physical Exam General Appearance: Alert, Oriented X3, Cooperative, No Acute Distress Skin: No Rashes Skin Temp/Moisture Exam: Warm/Dry HEENT: Atraumatic, PERRLA, EOMI, Mucous Membr. 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 Sevilla), COPD, spondylolysis, diverticulosis, osteoarthritis, depression, KUSH on CPAP, right nephrocystectomy, recent history of colonoscopy on September 23, history of diarrhea and lower abdominal pain since then. Patient main complaints today are lower abdominal pain and lower back pain. Plan -GI consultation was obtained, thanks for recommendation. No recommendation for farther management or investigation since patient symptoms improved abdominal pain and no diarrhea, tolerating oral intake well -Neurosurgery consultation was obtained, thanks for recommendation. Images were reviewed, no any acute neurosurgical emergency. Recommendation to continue follow-up with Dr. Alex Eli for her chronic back pain, and may be seen by Dr. Sher at [facility] if any neurosurgical intervention is needed in the future -Pain management Butrans narcotic patch, Dilauded IV 0.6 Q4, Dilauded 2 mg by mouth every 6 when necessary -Antispasmodic Hyoscyamine 0/125 mg -Fibercon and probiotics -IR evaluation for vertebroplasty -Follow up urine culture negative after 1 day -C. difficile negative DVT prophylaxis Lovenox Code full Diet regular/high fiber diet Problem List: 1. Compression fracture Pain Ratin Pain Location: Low back pain Pain Goal: Pain 4 or less Pain Plan: See medication Tomorrow's Labs & Rationales: CBC, BMP Onel HUFF,Mayra 09/30/17 1325: Attending MD Review Statement Attending Statement Attending MD Statement: examined this patient, discuss w/resident/PA/LEATHER SKINNER, agreed w/resident/PA/LEATHER SKINNER, discussed with family, reviewed EMR data (avail), discussed with nursing, reviewed images Attending Assessment/Plan: Pt is still in a lot of pain and has taken 3 doses of IV Dilaudid already today. She feels like the oral Dilaudid is not helping her. 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 At this point she has tried tramadol, oxycodone and oral Dilaudid with a buprenorphine patch and we are not getting anywhere with the pain. She is still requiring IV narcotics. The patient's outpatient physician feels that vertebroplasty may be a good option. We spoke to IR about it and Dr. Martines is going to review the images and come and talk to the patient. He is not so sure about vertebroplasty given the lack of focal tenderness but he will evaluate the patient to see.
[2017-09-30 14:10] VITALS: BP 102/64
--- NOTE | 2017-09-30 15:48 | MRI REPORT ---
EXAMINATION: MR KNEE WITHOUT CONTRAST, RIGHT CLINICAL INFORMATION: Right knee pain. Presumptive diagnosis: Osteoarthritis. COMPARISON: MRI of the right knee 11/26/2015. TECHNIQUE: MRI of the knee without contrast is performed using routine sequences. FINDINGS: MENISCI: Medial Meniscus: There is new mild fraying of the undersurface of the posterior horn of the medial meniscus. At the junction of the posterior horn and body, there is degenerative signal along the inferior aspect, some of which may extend to the mid inferior surface. This is suspicious for degeneration and possible superimposed tear. There is slight medial extrusion of the body. Lateral Meniscus: Intact. LIGAMENTS: Cruciate: Intact. Collateral: Intact. EXTENSOR MECHANISM: Intact. ARTICULAR CARTILAGE/BONE: Patellofemoral Compartment: There is no significant change in moderate cartilage thinning at the junction of the apex and medial facet of the patella with a slight increase in underlying bone marrow edema. There is slight worsening focal ytwv-wu-[id number] cartilage thinning in the superolateral femoral trochlea. Medial Compartment: There is slight worsening patchy mild cartilage irregularity and thinning in the weightbearing medial compartment. There is improved bone marrow edema in the medial femoral condyle. There is new moderate bone marrow edema in the medial tibial plateau. Lateral Compartment: Normal. JOINT FLUID AND BURSAE: Normal. IMPRESSION: 1. New mild fraying of the undersurface of the posterior horn of the medial meniscus. New degenerative signal and possible superimposed undersurface tear at the junction of the posterior horn and body. 2. No change in focal moderate arthrosis at the junction of the apex and medial facet of the patella and slight worsening focal [id number] arthrosis in the superolateral femoral trochlea. 3. Slight worsening mild arthrosis in the weightbearing medial compartment.
--- NOTE | 2017-09-30 15:58 | INTERVENTIONAL RADIOLOGY RPT ---
CONSULTATION CLINICAL INFORMATION: Back pain. Blanche Garcia is a 77-year-old female with a history of chronic back pain. She was originally admitted to this hospital for current admission on 09/27/2017. Her complaints upon admission were low back pain, lower abdominal pain, diarrhea and knee pain ever since a colonoscopy performed on 09/22/2017. 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 Prior to this admission, she was at [facility] from September 04 through September 11 being treated with ciprofloxacin and Flagyl for suspected colitis and diverticulitis. The interventional service was asked to see her in consultation for new compression fractures involving T11 and L3. When asked specifically about her back pain, she describes it as radiating up and down and sometimes to both groins. It is not localized to one specific area. On physical exam, she demonstrates no focal tenderness in the back whatsoever. Muscle strength in the lower extremities. Review of recent imaging shows edema at T11 and L3, significant worse at L3. In addition, at L3, there is a new compression fracture with loss of height when compared to a CT angiogram dated 09/08/2017. She has some mild edema in the T10 vertebral body but no significant loss of height. Degenerative changes are present at multiple levels with a grade 2 anterolisthesis of L4 upon L5. ASSESSMENT AND PLAN: Mrs. Garcia's history and physical exam are a bit confusing. Her back pain is poorly controlled with the current regime. She lacks the focal tenderness on physical exam but given the fact that the L3 vertebral body demonstrates new anatomic fracture as well as significant edema, I believe kyphoplasty in this instance is indicated. At the same sitting, an epidural steroid injection can be performed. We will schedule this for the near future.
[2017-09-30 22:06] VITALS: BP 122/70
[2017-10-01 06:14] VITALS: BP 128/76
[2017-10-01 08:23] LABS: ABSOLUTE BASOPHIL COUNT 0.1 /CUMM (0.0-0.2); ABSOLUTE EOSINOPHIL COUNT 0 /CUMM (0.0-0.7); ABSOLUTE GRANULOCYTE CT 11.6 /CUMM (1.4-6.5); ABSOLUTE LYMPH COUNT 1.9 /CUMM (1.2-3.4); ABSOLUTE MONOCYTE COUNT 1.7 /CUMM (0.10-0.60); BASOPHIL % 0.5 % (0.0-2.0); EOSINOPHIL % 0 % (0-5); GRANULOCYTE % 75.9 % (42.2-75.2); HEMATOCRIT 36.2 % (37-47); MEAN CORPUSCULAR HGB 32.8 PG (27.0-31.0); MEAN CORPUSCULAR HGB CONC 33.5 G/DL (33.0-37.0); MEAN PLATELET VOLUME 9.8 FL (7.4-10.4); PLATELET COUNT 291 /CUMM (130-400); RBC DISTRIBUTION WIDTH 16.2 % (11.5-14.5); RED BLOOD CELL CT 3.69 /CUMM (4.20-5.40); WHITE BLOOD CELL COUNT 15.3 /CUMM (4.8-10.8)
--- NOTE | 2017-10-01 10:32 | PN- Housestaff ---
Hernandez HUFF,[facility] 10/01/17 1031: Subjective Follow-up For: Colitis Subjective: Patient was seen and examined this morning, vital signs stable, no new complaint. Review of Systems Constitutional: Reports: see HPI. Objective Last 24 Hrs of Vital Signs/I&O Vital Signs Date Time Temp Pulse Resp B/P B/P Pulse O2 O2 Flow FiO2 Mean Ox Delivery Rate 10/01 1510 98.4 56 18 128/70 94 Room Air 10/01 1236 98.1 74 18 122/78 95 Room Air Room Air 10/01 0855 78 126/72 10/01 0614 98.0 78 20 128/76 93 Room Air 09/30 2206 97.9 62 18 122/70 97 Room Air Intake & Output 10/01 1600 10/01 0800 10/01 0000 Intake Total 800 240 480 Output Total Balance 800 240 480 Intake, Oral 800 240 480 Physical Exam General Appearance: Alert, Oriented X3, Cooperative, No Acute Distress Skin: No Rashes HEENT: Atraumatic, PERRLA, EOMI, Mucous Membr. 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 Sevilla), COPD, spondylolysis, diverticulosis, osteoarthritis, depression, KUSH on CPAP, right nephrocystectomy, recent history of colonoscopy on September 23, history of diarrhea and lower abdominal pain since then. Patient main complaints today are lower abdominal pain and lower back pain. Plan -GI consultation was obtained, thanks for recommendation. No recommendation for farther management or investigation since patient symptoms improved abdominal pain and no diarrhea, tolerating oral intake well -Neurosurgery consultation was obtained, thanks for recommendation. Images were reviewed, no any acute neurosurgical emergency. Recommendation to continue follow-up with Dr. Alex Eli for her chronic back pain, and may be seen by Dr. Sher at [facility] if any neurosurgical intervention is needed in the future -Pain management Butrans narcotic patch, Dilauded IV 0.6 Q4, Dilauded 2 mg by mouth every 6 when necessary... Working to get epidural injection in a.m. by IR with plan for vertebroplasty on Thursday patient is off aspirin and she should not take any NSAIDs in the following 3 days for vertebroplasty. Patient is off Lovenox and DVT prophylaxis only Alps -Antispasmodic Hyoscyamine 0/125 mg -Fibercon and probiotics -Follow up urine culture negative after 1 day -C. difficile negative DVT prophylaxis ALPS Code full Diet regular/high fiber diet Problem List: 1. Compression fracture 2. Abdominal pain Pain Ratin Pain Location: Lower back Pain Goal: Pain 4 or less Pain Plan: See medication Tomorrow's Labs & Rationales: N/A Mayra Sykes MD 10/01/17 1544: Attending MD Review Statement Attending Statement Attending MD Statement: examined this patient, discuss w/resident/PA/STRIP DEBURRER, agreed w/resident/PA/STRIP DEBURRER, discussed with family, reviewed EMR data (avail), discussed with case mgmt, reviewed images Attending Assessment/Plan: Patient continues to have severe pain on very little movement. She used 4 doses of IV Dilaudid yesterday and 2 doses already today. She was seen by the interventional radiologist who feels that she may benefit from vertebro-plasty but she needs to be off her aspirin for 3 days prior to this procedure. He did feel that the giving her an epidural steroid injection may help with the acute pain. She does have a history of an allergic reaction to IV contrast. When I spoke to her at length about it she clearly status was not anaphylaxis. She says it was a delayed reaction that occurred after she went home bed and she felt flushed warm and was red all over. We have spoken to IR. We are going to use the premedication regimen with the prednisone for 12 hours and she will have the epidural injection done tomorrow. If her intractable pain is better with the epidural injection, the plan will be discharge in the next 24-48 hours with vertebroplasty as an outpatient.
[2017-10-01 12:36] VITALS: BP 122/78
[2017-10-01 15:10] VITALS: BP 128/70
[2017-10-01 21:54] VITALS: BP 120/74
[2017-10-02 06:42] VITALS: BP 118/56
[2017-10-02 09:07] LABS: ABSOLUTE BASOPHIL COUNT 0 /CUMM (0.0-0.2); ABSOLUTE EOSINOPHIL COUNT 0 /CUMM (0.0-0.7); ABSOLUTE LYMPH COUNT 0.6 /CUMM (1.2-3.4); ABSOLUTE MONOCYTE COUNT 0.2 /CUMM (0.10-0.60); BASOPHIL % 0.1 % (0.0-2.0); EOSINOPHIL % 0 % (0-5); HEMATOCRIT 39.9 % (37-47); MEAN CORPUSCULAR HGB 32.1 PG (27.0-31.0); MEAN CORPUSCULAR HGB CONC 33.2 G/DL (33.0-37.0); MEAN CORPUSCULAR VOLUME 96.5 FL (81.0-99.0); MEAN PLATELET VOLUME 10.1 FL (7.4-10.4); RBC DISTRIBUTION WIDTH 15.8 % (11.5-14.5); RED BLOOD CELL CT 4.14 /CUMM (4.20-5.40); WHITE BLOOD CELL COUNT 15.7 /CUMM (4.8-10.8)
--- NOTE | 2017-10-02 09:21 | PN- Housestaff ---
Hernandez HUFF,[facility] 10/02/17 0915: Subjective Follow-up For: Compression fracture Colitis Subjective: Patient was seen and examined this morning, vitals stable, afibrile. overnight reports of hives of unknown eitology. Patient reported itchness that improved with benadryl. No symptoms today. Patient is schdualed for epidural injection today for pain control. Review of Systems Constitutional: Reports: see HPI. Objective Last 24 Hrs of Vital Signs/I&O Vital Signs Date Time Temp Pulse Resp B/P B/P Pulse O2 O2 Flow FiO2 Mean Ox Delivery Rate 10/02 0843 77 118/56 10/02 0642 98.6 77 16 118/56 94 Room Air 10/01 2154 98.5 83 16 120/74 94 Room Air 10/01 1510 98.4 56 18 128/70 94 Room Air 10/01 1236 98.1 74 18 122/78 95 Room Air Room Air Intake & Output 10/02 1600 10/02 0800 10/02 0000 Intake Total 200 950 Output Total Balance 200 950 Intake, Oral 200 950 Number 1 Bowel Movements Physical Exam General Appearance: Alert, Oriented X3, Cooperative, No Acute Distress Skin: No Rashes, No Breakdown, No Significant Lesion Skin Temp/Moisture Exam: Warm/Dry HEENT: Atraumatic, PERRLA, EOMI, Mucous Membr. moist/pink Neck: Supple Cardiovascular: Regular Rate, Normal S1, Normal S2, No Murmurs Lungs: Clear to Auscultation, Normal Air Movement Abdomen: Normal Bowel Sounds, Soft, No Tenderness Neurological: Normal Gait, Normal Speech, Strength at 5/5 X4 Ext, Normal Tone, Sensation Intact, Cranial Nerves 3-12 NL, Reflexes 2+, left lrg raise test positive, no spinal tenderness Extremities: No Clubbing, No Cyanosis, No Edema, Normal Pulses Assessment/Plan Assessment: Patient is 77 year-old female with PMH of CAD S/P NTEMI 2 yeas ago, HLD, Crohn's disease on mesalamine (on remission, last exacerbation long time ago), 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 Sevilla), COPD, spondylolysis, diverticulosis, osteoarthritis, depression, KUSH on CPAP, right nephrocystectomy, recent history of colonoscopy on September 23, history of diarrhea and lower abdominal pain since then. Patient main complaints today are lower abdominal pain and lower back pain. Plan -GI consultation was obtained, thanks for recommendation. No recommendation for farther management or investigation since patient symptoms improved abdominal pain and no diarrhea, tolerating oral intake well -Neurosurgery consultation was obtained, thanks for recommendation. Images were reviewed, no any acute neurosurgical emergency. Recommendation to continue follow-up with Dr. Alex Eli for her chronic back pain, and may be seen by Dr. Sher at [facility] if any neurosurgical intervention is needed in the future -Pain management Butrans narcotic patch, Dilauded IV 0.6 Q4, Dilauded 2 mg by mouth every 6 when necessary... palns for epidural injection this afternoon, premedication with steroid and benadryl was ordered. by IR with plan for vertebroplasty on Thursday patient is off aspirin and she should not take any NSAIDs in the following 3 days for vertebroplasty. Patient is off Lovenox and DVT prophylaxis only Alps. Will change the frequancy of Dilaudid po to q4 and iv to q 6 for plan of discharge. -Antispasmodic Hyoscyamine 0/125 mg -Fibercon and probiotics -Follow up urine culture negative after 1 day -C. difficile negative DVT prophylaxis ALPS Code full Diet regular/high fiber diet Problem List: 1. Compression fracture Pain Ratin Pain Location: Low back pain Pain Goal: Pain 4 or less Pain Plan: see medication Tomorrow's Labs & Rationales: n/a Onel HUFF,Mayra 10/02/17 1445: Attending MD Review Statement Attending Statement Attending MD Statement: examined this patient, discuss w/resident/PA/DORR OPERATOR, agreed w/resident/PA/DORR OPERATOR, discussed with family, reviewed EMR data (avail), discussed with nursing, discussed with case mgmt Attending Assessment/Plan: Patient is scheduled to go down for the epidural steroid injection today. She has intractable back pain despite escalating doses of opiates and trial of multiple opiates as an outpatient. I am concerned that her white count is slowly going up. She has no evidence of infection and I have examined her closely. Her abdomen is completely benign, she has no cough and her lungs are clear and she has no urinary symptoms. 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 She did get Medrol today in anticipation of the fluoroscopically guided steroid injection so I worry that tomorrow the white count will be higher. She is scheduled for a vertebroplasty on Thursday. Although it would be ideal to discharge her and bring her back with a vertebroplasty given all of her chronic competing medical problems, her immune suppressed state, her rising white count and her intractable pain at this time I think the risks of discharging her outweigh the benefits.
[2017-10-02 10:01] LABS: GRANULOCYTE % 95.1 % (42.2-75.2); PLATELET COUNT 318 /CUMM (130-400)
[2017-10-02] MEDS ORDERED: FIBERCON625 M1 PO (10:58)
[2017-10-02] MEDS ORDERED: DILAUDID2 M1 PO (10:58)
[2017-10-02] MEDS ORDERED: LEVSIN0.125 M1 PO (10:58)
--- NOTE | 2017-10-02 14:18 | Patient Discharge Instructions ---
Discharge Instructions General Discharge Information You were seen/treated for: Abdominal pain lower back pain Special Instructions: -PLEASE FOLLOW UP WITH YOUR PCP AFTER DISCHARGE -PLEASE FOLLOW UP WITH DR. HILARIO GI DOCTOR AFTER DISCHARGE -PLEASE TAKE YOUR PAIN MEDICATION DIRECTED -PLEASE FOLLOW UP WITH YOUR PAIN MANAGMENT DOCTOR [facility] Acute Coronary Syndrome Inclusion Criteria At DC or during hospital stay patient has or had the following: ACS DIAGNOSIS No Discharge Core Measures Meds if any: Prescribed or Continued at Discharge Meds if any: NOT Prescribed or Continued at Discharge Congestive Heart Failure Inclusion Criteria At DC or during hospital stay patient has or had the following: CHF DIAGNOSIS No Discharge Core Measures Meds if any: Prescribed or Continued at Discharge Meds if any: NOT Prescribed or Continued at Discharge Cerebrovascular accident Inclusion Criteria At DC or during hospital stay patient has or had the following: CVA/TIA Diagnosis No Discharge Core Measures Meds if any: Prescribed or Continued at Discharge Meds if any: NOT Prescribed or Continued at Discharge Venous thromboembolism Inclusion Criteria VTE Diagnosis No VTE Type NONE VTE Confirmed by (Test) NONE Discharge Core Measures - Per Current guidelines, there needs to be overlap - treatment for the first 5 days of Warfarin therapy. - If discharged on Warfarin prior to 5 days of - overlap therapy, the patient will need to be - assessed for post discharge needs including - *Post discharge parental anticoagulation - *Warfarin and/or parental anticoagulation education - *Follow up date to check INR post discharge At least 5 days overlap therapy as Inpatient Yes Meds if any: Prescribed or Continued at Discharge Note: Overlap Therapy is Warfarin and Anticoagulant Meds if any: NOT Prescribed or Continued at Discharge
[2017-10-02 14:57] VITALS: BP 128/70
--- NOTE | 2017-10-02 17:23 | INTERVENTIONAL RADIOLOGY RPT ---
EXAMINATION: LUMBAR EPIDURAL STEROID INJECTION CLINICAL INFORMATION: 77-year-old female with back pain. Patient has extensive degenerative changes of the lumbar spine and L3 compression fracture. Lumbar epidural steroid injection requested. COMPARISON: Lumbar spine MRI 09/28/2017 INTERVENTIONAL RADIOLOGIST: Carlos Huynh M.D. FLUOROSCOPY TIME: 1.7 minutes DOSE AREA PRODUCT: 12.1 Gy-cm2 (ge-centimeter squared) MEDICATIONS: 12 mL 1% Lidocaine (preservative free) 3 mL Bupivacaine 80 mg Depo-medrol CONTRAST: 2 mL Omnipaque 300 TECHNIQUE AND FINDINGS: Informed consent was obtained from the patient prior to the procedure. During this process, the procedure and potential alternatives was explained, along with the intended outcome and benefits. The risks of the procedure, as well as the risk of not doing the procedure, were discussed. The patient was given the opportunity to ask questions regarding the procedure and appeared competent to make medical decisions. A signed consent form which documents this discussion was placed in the medical record. The patient's previous imaging was reviewed. The patient was brought to the interventional radiology suite and a timeout procedure was performed. The patient was placed on the fluoroscopic table in the prone position. The L3-L4 level was localized fluoroscopically and marked on the skin. The back was sterilely prepped and draped. Following administration of local anesthesia using 1% lidocaine, a 20-gauge Touhy needle was introduced into the posterior epidural space via a midline approach at the L3-L4 level under fluoroscopic guidance using release of pressure technique. 2 mL of Omnipaque 300 was then injected under fluoroscopic visualization confirming epidural location of the needle. A mixture of 2 mL of Depo-medrol (80 mg), 3 mL of preservative-free 0.5% bupivacaine and 3 mL preservative-free normal saline was injected. The needle was withdrawn. A sterile bandage was placed. The patient tolerated the procedure well. There was no evidence of complications. IMPRESSION: Successful fluoroscopic-guided lumbar epidural steroid injection.
--- NOTE | 2017-10-02 17:29 | RADIOLOGY REPORT ---
EXAMINATION: XR CHEST CLINICAL INFORMATION: Cough COMPARISON: Chest x-ray 10/02/2017 TECHNIQUE: 2 views of the chest were obtained. FINDINGS: Stable cardiac silhouette. Lungs are adequately aerated. Similar elevation of the right hemidiaphragm. No lobar consolidation. No gross pleural effusion or pneumothorax. Diffuse degenerative changes of the spine. Mild compression deformity of a lower thoracic vertebral body, likely T10. Bilateral shoulder prostheses, incompletely visualized. IMPRESSION: No lobar consolidation or gross pleural effusion.
[2017-10-02 22:27] VITALS: BP 132/68
[2017-10-03 06:16] VITALS: BP 142/82
[2017-10-03 09:05] LABS: ABSOLUTE BASOPHIL COUNT 0 /CUMM (0.0-0.2); ABSOLUTE EOSINOPHIL COUNT 0 /CUMM (0.0-0.7); ABSOLUTE GRANULOCYTE CT 17.8 /CUMM (1.4-6.5); ABSOLUTE LYMPH COUNT 0.3 /CUMM (1.2-3.4); ABSOLUTE MONOCYTE COUNT 1.5 /CUMM (0.10-0.60); BASOPHIL % 0 % (0.0-2.0); EOSINOPHIL % 0 % (0-5); GRANULOCYTE % 90.4 % (42.2-75.2); HEMATOCRIT 36.5 % (37-47); MEAN CORPUSCULAR HGB 32.5 PG (27.0-31.0); MEAN CORPUSCULAR VOLUME 98.5 FL (81.0-99.0); MEAN PLATELET VOLUME 9.8 FL (7.4-10.4); PLATELET COUNT 359 /CUMM (130-400); RBC DISTRIBUTION WIDTH 15.6 % (11.5-14.5); RED BLOOD CELL CT 3.71 /CUMM (4.20-5.40)
--- NOTE | 2017-10-03 10:42 | PN- Att Addend ---
Attending Addendum Attending Brief Note Ms Garcia was seen and evaluated. Reports doing OK after the injection. Pain under control. Denies f/c/n/v Vital Signs Date Time Temp Pulse Resp B/P B/P Pulse O2 O2 Flow FiO2 Mean Ox Delivery Rate 10/03 0921 83 142/82 10/03 0616 98.5 83 20 142/82 92 10/02 2227 98.6 101 20 132/68 96 Room Air 10/02 1600 93 Room Air 10/02 1457 98.3 76 18 128/70 93 Room Air Intake & Output 10/03 1600 10/03 0800 10/03 0000 Intake Total 120 720 Output Total 1 Balance 120 719 Intake, Oral 120 720 Output, Stool 1 GEN: pleasant lady, AAOx3 HEENT: moist mucosa LUNGS: CTAB HEART: s1s2 Laboratory Tests 10/03/17 0702: Anion Gap 15, Estimated GFR > 60, BUN/Creatinine Ratio 18.6, Total Bilirubin 0.5 , Direct Bilirubin 0.3, AST 31, ALT 38, Alkaline Phosphatase 77, Total Protein 6.0 L, Albumin 3.6, CBC w Diff Pending, WBC Pending, RBC Pending, Hgb Pending, Hct Pending, MCV Pending, MCH Pending, RDW Pending, Plt Count Pending, MPV Pending, PUBS MCHC Pending A/P: Briefly, Ms. 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 Sevilla), COPD, spondylolysis, diverticulosis, osteoarthritis, depression, KUSH on CPAP, right nephrocystectomy, recent history of colonoscopy a/w LBP --s/p epidural injection DVT prophylaxis ALPS Code full Diet regular/high fiber diet
[2017-10-03 12:17] LABS: WHITE BLOOD CELL COUNT 19.6 /CUMM (4.8-10.8)
[2017-10-03 15:00] VITALS: BP 126/70
[2017-10-03 23:54] VITALS: BP 117/83
[2017-10-04 06:00] VITALS: BP 130/60
[2017-10-04 08:31] LABS: ABSOLUTE BASOPHIL COUNT 0 /CUMM (0.0-0.2); ABSOLUTE EOSINOPHIL COUNT 0 /CUMM (0.0-0.7); ABSOLUTE GRANULOCYTE CT 16.6 /CUMM (1.4-6.5); ABSOLUTE LYMPH COUNT 0.8 /CUMM (1.2-3.4); ABSOLUTE MONOCYTE COUNT 0.7 /CUMM (0.10-0.60); BASOPHIL % 0.2 % (0.0-2.0); EOSINOPHIL % 0 % (0-5); GRANULOCYTE % 91.2 % (42.2-75.2); MEAN CORPUSCULAR HGB 32.5 PG (27.0-31.0); MEAN CORPUSCULAR HGB CONC 33.2 G/DL (33.0-37.0); PLATELET COUNT 277 /CUMM (130-400); RBC DISTRIBUTION WIDTH 15.8 % (11.5-14.5); RED BLOOD CELL CT 3.98 /CUMM (4.20-5.40); WHITE BLOOD CELL COUNT 18.2 /CUMM (4.8-10.8)
--- NOTE | 2017-10-04 10:23 | PN- Att Addend ---
Attending Addendum Attending Brief Note No overnight issues, remained stable. Tolerating meds OK Vital Signs Date Time Temp Pulse Resp B/P B/P Pulse O2 O2 Flow FiO2 Mean Ox Delivery Rate 10/04 0842 70 118/84 10/04 0600 98.1 70 20 130/60 10/03 2354 98.4 69 20 117/83 98 Room Air 10/03 1500 98.1 82 20 126/70 93 Room Air Intake & Output 10/04 1600 10/04 0800 10/04 0000 Intake Total 100 850 Output Total Balance 100 850 Intake, Oral 100 850 GEN: pleasant elderly lady HEENT: moist mucosa LUNGS: CTA ABD: soft Laboratory Tests 10/04/17 0735: Anion Gap 12, Estimated GFR > 60, BUN/Creatinine Ratio 17.1, CBC w Diff NO MAN DIFF REQ, RBC 3.98 L, MCV 98.0, MCH 32.5 H, RDW 15.8 H, MPV 10.0, Gran % 91.2 H, Lymphocytes % 4.6 L, Monocytes % 4.0, Eosinophils % 0, Basophils % 0.2, Absolute Granulocytes 16.6 H, Absolute Lymphocytes 0.8 L, Absolute Monocytes 0.7 H, Absolute Eosinophils 0, Absolute Basophils 0, PUBS MCHC 33.2 A/P: Briefly, Ms. 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 Sevilla), COPD, spondylolysis, diverticulosis, osteoarthritis, depression, KUSH on CPAP, right nephrocystectomy, recent history of colonoscopy a/w LBP --s/p epidural injection --anticipate Vertebroplasty on Thu DVT prophylaxis ALPS Code full Diet regular/high fiber diet
[2017-10-04 15:15] VITALS: BP 120/58
[2017-10-04 22:38] VITALS: BP 116/78
[2017-10-05 06:34] VITALS: BP 124/72
[2017-10-05 08:46] LABS: ABSOLUTE BASOPHIL COUNT 0 /CUMM (0.0-0.2); ABSOLUTE EOSINOPHIL COUNT 0 /CUMM (0.0-0.7); ABSOLUTE LYMPH COUNT 1.3 /CUMM (1.2-3.4); ABSOLUTE MONOCYTE COUNT 0.4 /CUMM (0.10-0.60); BASOPHIL % 0.1 % (0.0-2.0); EOSINOPHIL % 0 % (0-5); GRANULOCYTE % 88.1 % (42.2-75.2); HEMATOCRIT 39.6 % (37-47); MEAN CORPUSCULAR HGB 32.1 PG (27.0-31.0); MEAN CORPUSCULAR HGB CONC 32.9 G/DL (33.0-37.0); MEAN CORPUSCULAR VOLUME 97.5 FL (81.0-99.0); MEAN PLATELET VOLUME 9.8 FL (7.4-10.4); PLATELET COUNT 262 /CUMM (130-400); RBC DISTRIBUTION WIDTH 15.6 % (11.5-14.5); RED BLOOD CELL CT 4.07 /CUMM (4.20-5.40); WHITE BLOOD CELL COUNT 14.8 /CUMM (4.8-10.8)
--- NOTE | 2017-10-05 10:01 | PN- Housestaff ---
See Addendum Subjective Follow-up For: Compression fracture Colitis Subjective: Patient was seen and examined this morning, vital signs are stable, continue to be afebrile, leukocytosis is improving from 18.2 to 14.8. Patient denied any symptoms of infection. She reported having 3 episodes of hives on , Thursday and Thursday. Thursday was the worst one but improved with Benadryl. She didn't feel any shortness of breath or chest pain at that time though. Blood culture continued to be negative. Patient is scheduled for vertebroplasty this afternoon. Review of Systems Constitutional: Reports: see HPI. Objective Last 24 Hrs of Vital Signs/I&O Vital Signs Date Time Temp Pulse Resp B/P B/P Pulse O2 O2 Flow FiO2 Mean Ox Delivery Rate 10/05 0844 70 124/72 10/05 0634 98.1 70 20 124/72 93 Room Air 10/05 0000 93 Room Air 10/04 2238 98.6 96 20 116/78 93 Room Air 10/04 1515 98.3 70 20 120/58 95 Room Air Intake & Output 10/05 1600 10/05 0800 10/05 0000 Intake Total 50 900 Output Total Balance 50 900 Intake, IV 0 Intake, Oral 50 900 Number 0 Bowel Movements Physical Exam General Appearance: Alert, Oriented X3, Cooperative, No Acute Distress Skin: No Rashes, No Breakdown Skin Temp/Moisture Exam: Warm/Dry HEENT: Atraumatic, PERRLA, EOMI, Mucous Membr. 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 Sevilla), COPD, spondylolysis, diverticulosis, osteoarthritis, depression, KUSH on CPAP, right nephrocystectomy, recent history of colonoscopy on September 23, history of diarrhea and lower abdominal pain since then. Patient main complaints today are lower abdominal pain and lower back pain. Plan -GI consultation was obtained, thanks for recommendation. No recommendation for farther management or investigation since patient symptoms improved abdominal pain and no diarrhea, tolerating oral intake well -Neurosurgery consultation was obtained, thanks for recommendation. Images were reviewed, no any acute neurosurgical emergency. Recommendation to continue follow-up with Dr. Alex Eli for her chronic back pain, and may be seen by Dr. Sher at [facility] if any neurosurgical intervention is needed in the future -Patient had successful fluoroscopic-guided lumbar epidural steroid injection on Thursday10/02/17. We'll continue pain management with Butrans narcotic patch and Dilauded 2 mg by mouth every 6 when necessary--- of IV Dilaudid. -Patient is scheduled for vertebroplasty this afternoon. We'll restart aspirin and anticoagulation with Lovenox afterwards. -Patient had multiple episodes of widespread hives, no report for shortness of breath or chest pain last week. All of the episodes improved with Benadryl. Source is unknown. -Leukocytosis with peak 19.6, no bandemia. Cultures remain negative, and patient is asymptomatic. Today white blood cells is 14.8. -Antispasmodic Hyoscyamine 0/125 mg -Fibercon and probiotics -Follow up urine culture negative after 1 day -C. difficile negative DVT prophylaxis ALPS Code full Diet regular/high fiber diet Problem List: 1. Compression fracture 2. Crohn's disease Pain Ratin Pain Location: lower back pain Pain Goal: Pain 4 or less Pain Plan: See medication epidural injection Tomorrow's Labs & Rationales: CBC
[2017-10-05 11:42] VITALS: BP 130/78
[2017-10-05 15:38] VITALS: BP 96/52
[2017-10-05 16:24] VITALS: BP 100/60
--- NOTE | 2017-10-05 16:27 | INTERVENTIONAL RADIOLOGY RPT ---
PROCEDURE: VERTEBRAL AUGMENTATION CLINICAL INFORMATION: Osteoporotic L3 compression fracture with low back pain INTERVENTIONAL RADIOLOGIST: Carlos Huynh M.D. ANESTHESIA: -The anesthesia department was utilized for sedation/anesthesia support during today's case. Please see their note for detailed findings. -20 mL lidocaine used for local anesthetic. COMPARISON IMAGING: Lumbar spine MRI 09/28/[address] abdomen and pelvis 09/27/2017 DESCRIPTION: The patient was placed on the special procedures table in the prone position. A final timeout was performed. The back in the region of the lumbar spine was sterilely prepped and draped. The pedicles of L3 were identified fluoroscopically and the levels marked on the skin using an indelible dermal marker. Local anesthesia was then performed with infiltration of the skin and deep tissues tissues using 1% lidocaine. Small nicks were then made in the skin using a #11 scalpel blade. One-Step osteo introducers were advanced transpedicularly bilaterally into the posterior third of the vertebral body. A small hand drill was then used to core the trabecular bone in the vertebral body creating a cortical window. 15 mm length inflatable bone tamps were then inserted through the introducers and advanced into the vertebral body near the anterior cortex. The bones tamps were then slowly inflated to a maximum pressure of approximately 180 PSI and a volume of 3 mL each. The bone tamps were then deflated and removed. Kyphon HVR bone cement filler was prepared. Under fluoroscopic guidance, internal fixation was achieved through slow, low pressure injection of the barium opacified bony filler directly into the medullary cavity through filling tubes using a total of 6 mL of cement. There was excellent filling of the vertebral body without evidence of any extension of cement into the paravertebral soft tissues, spinal canal, or neuroforamina. The introduction channels were then removed. The puncture sites were cleansed and sterilely sealed using Dermabond. After approximately 15 minutes, patient was turned into the supine position. When she awoke she was stable and neurologically intact. TOTAL FLUOROSCOPY TIME: 6.2 minutes DOSE AREA PRODUCT: 59.9 Gy-cm2 (ge-centimeter squared) COMPLICATIONS: No complications were encountered. CONCLUSION: Vertebral augmentation performed for an acute L3 osteoporotic wedge compression fracture under fluoroscopic guidance via a bilateral transpedicular approach with excellent fracture reduction and stabilization.
[2017-10-05 17:25] VITALS: BP 118/60
[2017-10-05 22:30] VITALS: BP 102/58
[2017-10-06 07:10] VITALS: BP 148/74
--- NOTE | 2017-10-06 09:02 | PN- Housestaff ---
Hernandez HUFF,[facility] 10/06/17 0901: Subjective Follow-up For: Compression fracture Subjective: Patient was seen and examined this morning, she reported severe pain in her pack , status post vertebroplasty. Patient is requiring IV Dilaudid 1 mg every 4 hours. Denied any weakness, numbness. Review of Systems Constitutional: Reports: see HPI. Objective Last 24 Hrs of Vital Signs/I&O Vital Signs Date Time Temp Pulse Resp B/P B/P Pulse O2 O2 Flow FiO2 Mean Ox Delivery Rate 10/06 1051 124/60 10/06 0710 98.1 84 18 148/74 94 10/05 2230 99.1 88 20 102/58 96 Room Air 10/05 1725 118/60 10/05 1624 100/60 10/05 1538 97.5 54 18 96/52 93 Room Air Room Air Intake & Output 10/06 1600 10/06 0800 10/06 0000 Intake Total 1920 540 840 Output Total 750 Balance 1920 540 90 Intake, IV 120 300 Intake, Oral 1800 240 840 Number 0 Bowel Movements Output, Urine 750 Physical Exam General Appearance: Alert, Oriented X3, Cooperative, No Acute Distress Skin: No Rashes Skin Temp/Moisture Exam: Warm/Dry HEENT: Atraumatic, PERRLA, EOMI, Mucous Membr. 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 Sevilla), COPD, spondylolysis, diverticulosis, osteoarthritis, depression, KUSH on CPAP, right nephrocystectomy, recent history of colonoscopy on September 23, history of diarrhea and lower abdominal pain since then. Patient main complaints today are lower abdominal pain and lower back pain. Plan #Colitis -Resolved -GI consultation was obtained, thanks for recommendation. No recommendation for farther management or investigation since patient symptoms improved abdominal pain and no diarrhea, tolerating oral intake well. -Antispasmodic Hyoscyamine 0/125 mg -Fibercon and probiotics -C. difficile negative #Intractable low back pain -MRI lumbar spine revealed acute compression fracture of T10 and L3 with evidence of canal stenosis (Severe canal stenosis at L3-L4. Moderate canal stenosis at L1-L2, L2-L3, and L4-L5. There is moderate compression of the foraminal segment of the left L4 nerve root related to multifactorial degenerative changes at L4-L5.) -Neurosurgery consultation was obtained, thanks for recommendation. Images were reviewed, no any acute neurosurgical emergency. Recommendation to continue follow-up with Dr. Alex Eli for her chronic back pain, and may be seen by Dr. Sher at [facility] if any neurosurgical intervention is needed in the future -Due to significant pain, we scheduled forfluoroscopic-guided lumbar epidural steroid injection on Thursday10/02/17. Patient has some relief and was continuing on by mouth Dilauded 2 mg every 6 when necessary -For definitive treatment, patient was scheduled for vertebroplasty on 10/05/17 for L3. Patient reported severe pain afterwards that required IV dialudid, IR specialist Dr. Huynh evaluated her today, recommendation to continue pain medication and if pain persists will obtain MRI of lumbar spine in a.m. #Hives -Patient had multiple episodes of widespread hives, no report for shortness of breath or chest pain. All of the episodes improved with Benadryl. Source is unknown. #Leukocytosis Given that patient is immunocompromised with methotrexate and chronic prednisone use 5 mg, close follow up of white blood cell was maintained to rule out any hidden infection. Leukocytosis with peak 19.6, no bandemia. Cultures remain negative, and patient is asymptomatic. DVT prophylaxis ALPS Code full Diet regular/high fiber diet Problem List: 1. Compression fracture Pain Ratin Pain Location: Low back pain Pain Goal: Pain 4 or less Pain Plan: See medication Tomorrow's Labs & Rationales: N/A Jay HUFF,Kendy 10/06/17 1401: Attending MD Review Statement Attending Statement Attending MD Statement: examined this patient, discuss w/resident/PA/CREATIVE GURU, agreed w/resident/PA/CREATIVE GURU, reviewed EMR data (avail), discussed with nursing, discussed with case mgmt, reviewed images, amended to note Attending Assessment/Plan: Patient seen and examined, c/o lot of pain in her back. S/P vertebroplasty yesterday. Vital Signs Date Time Temp Pulse Resp B/P B/P Pulse O2 O2 Flow FiO2 Mean Ox Delivery Rate 10/06 1051 124/60 10/06 0710 98.1 84 18 148/74 94 10/05 2230 99.1 88 20 102/58 96 Room Air 10/05 1725 118/60 10/05 1624 100/60 10/05 1538 97.5 54 18 96/52 93 Room Air Room Air on exam; aox3, nad. cv; s1,s2, rrr resp; clear abd; soft, nt, bs+ ext; no edema. back: some tenderness in lower back. Laboratory Tests 10/06 1103 Hematology CBC w Diff NO MAN DIFF REQ WBC (4.8 - 10.8 /CUMM) 18.2 H RBC (4.20 - 5.40 /CUMM) 4.04 L Hgb (12.0 - 16.0 G/DL) 13.1 Hct (37 - 47 %) 39.3 MCV (81.0 - 99.0 FL) 97.2 MCH (27.0 - 31.0 PG) 32.4 H RDW (11.5 - 14.5 %) 15.6 H Plt Count (130 - 400 /CUMM) 223 MPV (7.4 - 10.4 FL) 9.6 Gran % (42.2 - 75.2 %) 88.6 H Lymphocytes % (20.5 - 51.1 %) 6.0 L Monocytes % (1.7 - 9.3 %) 4.9 Eosinophils % (0 - 5 %) 0.1 Basophils % (0.0 - 2.0 %) 0.4 Absolute Granulocytes (1.4 - 6.5 /CUMM) 16.1 H Absolute Lymphocytes (1.2 - 3.4 /CUMM) 1.1 L Absolute Monocytes (0.10 - 0.60 /CUMM) 0.9 H Absolute Eosinophils (0.0 - 0.7 /CUMM) 0 Absolute Basophils (0.0 - 0.2 /CUMM) 0.1 PUBS MCHC (33.0 - 37.0 G/DL) 33.4 A/P; 77-year-old female with past history significant for coronary artery disease status post and STEMI, hyperlipidemia, Crohn's disease on mesalamine. , Small vessel vasculitis with SLE on methotrexate and steroids, COPD, spondylolysis, diverticulosis, osteoarthritis arthritis, depression, KUSH on CPAP admitted with the lower back pain. Status post epidural injection and vertebroplasty. Patient is still complaining of significant moderate pain in the lower back. She is now requiring IV Dilaudid instead of by mouth. Seen by Dr. Huynh this morning. Will monitor her pain today. If she remains in excruciating pain by tomorrow, will consider doing a repeat MRI of the spine. Patient's aspirin on hold. We'll wait till tomorrow in terms of her improvement with pain. Continue the rest of the medications. Ultimately to go home once pain is better controlled.
[2017-10-06 12:00] LABS: ABSOLUTE BASOPHIL COUNT 0.1 /CUMM (0.0-0.2); ABSOLUTE EOSINOPHIL COUNT 0 /CUMM (0.0-0.7); ABSOLUTE GRANULOCYTE CT 16.1 /CUMM (1.4-6.5); ABSOLUTE LYMPH COUNT 1.1 /CUMM (1.2-3.4); ABSOLUTE MONOCYTE COUNT 0.9 /CUMM (0.10-0.60); BASOPHIL % 0.4 % (0.0-2.0); EOSINOPHIL % 0.1 % (0-5); HEMATOCRIT 39.3 % (37-47); MEAN CORPUSCULAR HGB 32.4 PG (27.0-31.0); MEAN CORPUSCULAR HGB CONC 33.4 G/DL (33.0-37.0); MEAN CORPUSCULAR VOLUME 97.2 FL (81.0-99.0); MEAN PLATELET VOLUME 9.6 FL (7.4-10.4); PLATELET COUNT 223 /CUMM (130-400); RBC DISTRIBUTION WIDTH 15.6 % (11.5-14.5); RED BLOOD CELL CT 4.04 /CUMM (4.20-5.40); WHITE BLOOD CELL COUNT 18.2 /CUMM (4.8-10.8)
[2017-10-06 12:29] LABS: GRANULOCYTE % 88.6 % (42.2-75.2)
[2017-10-06 15:18] VITALS: BP 140/63
[2017-10-06 21:52] VITALS: BP 132/70
[2017-10-07 06:46] VITALS: BP 128/68
--- NOTE | 2017-10-07 07:19 | PN- Housestaff ---
Elliot Beebe 10/07/17 0719: Subjective Follow-up For: Compression fracture status post kyphoplasty Complaints: pain scale (0-10) Subjective: patient was seen and examined this morning. she is alert awake and oriented to time place and person. No acute events noticed. Patient continues to report low back pain 7 out of 10 pain this morning. She is getting Dilaudid 1 mg every 4 hours. Getting minimal relief with IV pain medication. Denies any weakness, sensory changes, gait changes. No bladder or bowel incontinence. Vitals were stable. Review of Systems Constitutional: Reports: see HPI. Objective Last 24 Hrs of Vital Signs/I&O Vital Signs Date Time Temp Pulse Resp B/P B/P Pulse O2 O2 Flow FiO2 Mean Ox Delivery Rate 10/07 0952 136/84 10/07 0646 98.5 83 20 128/68 92 10/06 2152 97.7 68 20 132/70 94 Room Air 10/06 1518 98.0 67 2 140/63 95 Room Air 10/06 1051 124/60 Intake & Output 10/07 1600 10/07 0800 10/07 0000 Intake Total 340 580 Output Total Balance 340 580 Intake, IV 100 100 Intake, Oral 240 480 Physical Exam General Appearance: Alert, Oriented X3, Cooperative, No Acute Distress Other Physical Findings: Skin: No Rashes Skin Temp/Moisture Exam: Warm/Dry HEENT: Atraumatic, PERRLA, EOMI, Mucous Membr. moist/pink Neck: Supple Cardiovascular: Regular Rate, Normal S1, Normal S2, No Murmurs Lungs: Clear to Auscultation, Normal Air Movement Abdomen: Normal Bowel Sounds, Soft, No Tenderness Neurological: Normal Speech, Strength at 5/5 X4 Ext, Normal Tone, Sensation Intact, Cranial Nerves 3-12 NL, Reflexes 2+ Extremities: No Clubbing, No Cyanosis, No Edema, Normal Pulses Current Medications: Current Medications Sig/Cherry Start time Last Medication Dose Route Stop Time Status Admin Acetaminophen 1,000 MG TID 10/05 2214 AC 10/07 IV 1002 Acetaminophen 650 MG Q6P PRN 09/27 2215 AC 10/03 PO 0604 Albuterol Sulfate 2 PUF Q4-6 PRN PRN 09/27 2345 AC INH Benzocaine/Menthol 1 DOMENIC Q2P PRN 10/06 1515 AC 10/07 PO 0951 Buprenorphine 1 PATCH Q168 10/04 1215 AC 10/04 TD 1237 Buspirone HCl 7.5 MG BID PRN 09/27 2356 AC PO Diphenhydramine HCl 25 MG Q6P PRN 10/01 1700 AC 10/03 PO 1707 Docusate Sodium 100 MG DAILY 10/01 1534 AC 10/07 PO 0952 Duloxetine HCl 60 MG AT BEDTIME 09/28 0045 AC 10/06 PO 2138 Famotidine 20 MG ONCE PRN 10/01 1700 AC 10/03 PO 0605 Ferrous Sulfate 325 MG DAILY 10/01 1000 AC 10/07 PO 0951 Heparin Sodium 5,000 UNIT Q8 10/06 1434 DC 10/06 (Porcine) SC 10/07 0100 2136 Hydromorphone HCl 1 MG Q4 10/06 0615 10/07 IV 0951 Hyoscyamine 0.125 MG TID PRN 09/28 1915 AC SL Lactobacillus 1 CAP BID 09/28 1000 AC 10/07 Acidophilus PO 0952 Mesalamine 800 MG TID 09/28 0030 AC 10/07 PO 0952 Metoprolol Tartrate 50 MG DAILY 09/28 1000 AC 10/07 PO 0952 Nicotinic Acid 500 MG 1700 09/30 1700 AC 10/06 PO 1740 Omeprazole 20 MG DAILY AC 09/28 0700 AC 10/07 PO 0549 Polycarbophil 1,250 MG DAILY 09/28 1909 AC 10/07 PO 0951 Prednisone 5 MG DAILY 09/28 1000 AC 10/07 PO 0952 Ropinirole HCl 4 MG QPM 09/28 2200 AC 10/06 PO 2138 Last 24 Hrs of Lab/Marco Results Last 24 Hrs of Labs/Mics: Laboratory Tests 10/07/17 0720: Anion Gap 15, Estimated GFR > 60, BUN/Creatinine Ratio 15.0, CBC w Diff MAN DIFF ORDERED, RBC 3.90 L, MCV 98.4, MCH 32.7 H, RDW 16.3 H, MPV 10.0, Gran % 86.6 H, Lymphocytes % 4.8 L, Monocytes % 8.2, Eosinophils % 0.2, Basophils % 0.2, Absolute Granulocytes 17.4 H, Segmented Neutrophils 85 H, Absolute Lymphocytes 1.0 L, Lymphocytes 5 L, Monocytes 10 H, Absolute Monocytes 1.6 H, Absolute Eosinophils 0, Absolute Basophils 0, Platelet Estimate VERIFIED BY SMEAR, Normocytic RBCs VERIFIED, Normochromic RBCs VERIFIED, PUBS MCHC 33.3 10/06/17 1103: CBC w Diff NO MAN DIFF REQ, RBC 4.04 L, MCV 97.2, MCH 32.4 H, RDW 15.6 H, MPV 9.6, Gran % 88.6 H, Lymphocytes % 6.0 L, Monocytes % 4.9, Eosinophils % 0.1, Basophils % 0.4, Absolute Granulocytes 16.1 H, Absolute Lymphocytes 1.1 L, Absolute Monocytes 0.9 H, Absolute Eosinophils 0, Absolute Basophils 0.1, PUBS MCHC 33.4 Assessment/Plan Assessment: Patient is 77 year-old female with PMH of CAD S/P NTEMI 2 yeas ago, HLD, Crohn's disease on mesalamine (on remission, last exacerbation long time ago), 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 Sevilla), COPD, spondylolysis, diverticulosis, osteoarthritis, depression, KUSH on CPAP, right nephrocystectomy, recent history of colonoscopy on September 23, history of diarrhea and lower abdominal pain since then. Patient main complaints are lower abdominal pain and lower back pain. Plan #Colitis -Resolved -GI consultation was obtained, thanks for recommendation. No recommendation for farther management or investigation since patient symptoms improved abdominal pain and no diarrhea, tolerating oral intake well. -Antispasmodic Hyoscyamine 0/125 mg -Fibercon and probiotics -C. difficile negative #Intractable low back pain -MRI lumbar spine revealed acute compression fracture of T10 and L3 with evidence of canal stenosis (Severe canal stenosis at L3-L4. Moderate canal stenosis at L1-L2, L2-L3, and L4-L5. There is moderate compression of the foraminal segment of the left L4 nerve root related to multifactorial degenerative changes at L4-L5.) -Neurosurgery consultation was obtained, thanks for recommendation. Images were reviewed, no any acute neurosurgical emergency. Recommendation to continue follow-up with Dr. Alex Eli for her chronic back pain, and may be seen by Dr. Sher at [facility] if any neurosurgical intervention is needed in the future -Due to significant pain, she underwent fluoroscopic-guided lumbar epidural steroid injection on Thursday10/02/17. Patient has some relief and was continuing on by mouth Dilauded 1mg every 4 when necessary -For definitive treatment, patient was scheduled for vertebroplasty on 10/05/17 for L3. Patient reported severe pain afterwards that required IV dialudid, IR specialist Dr. Huynh evaluated her, recommendation to continue pain medication and if pain persists will obtain MRI of lumbar spine in a.m. -Planning to get MRI lumbar spine 10/07/2016. #Hives -Patient had multiple episodes of widespread hives, no report for shortness of breath or chest pain. All of the episodes improved with Benadryl. Source is unknown. #Leukocytosis Given that patient is immunocompromised with methotrexate and chronic prednisone use 5 mg, close follow up of white blood cell was maintained to rule out any hidden infection. Leukocytosis with peak 20 no bandemia. Cultures remain negative, and patient is asymptomatic. DVT prophylaxis ALPS Code full Diet regular/high fiber diet Problem List: 1. Compression fracture Pain Ratin Pain Location: low back pain Pain Goal: Remain pain free Pain Plan: dilaudid Tomorrow's Labs & Rationales: lorenzo Thompson MD,Kendy 10/07/17 1210: Attending MD Review Statement Attending Statement Attending MD Statement: examined this patient, discuss w/resident/PA/CONSTRUCTION SERVICES TECHNICIAN, agreed w/resident/PA/CONSTRUCTION SERVICES TECHNICIAN, reviewed EMR data (avail), discussed with nursing, discussed with case mgmt, reviewed images, amended to note Attending Assessment/Plan: Patient seen and examined, still complaining of back pain. She still requiring IV Dilaudid. As discussed with the interventional radiologist Dr. Huynh, if patient still in pain and requiring IV narcotics, we will do an MRI of her lumbar sacral spine today to rule out any new acute fractures. Vital Signs Date Time Temp Pulse Resp B/P B/P Pulse O2 O2 Flow FiO2 Mean Ox Delivery Rate 10/07 0952 136/84 10/07 0646 98.5 83 20 128/68 92 10/06 2152 97.7 68 20 132/70 94 Room Air 10/06 1518 98.0 67 2 140/63 95 Room Air on exam; aox3, nad. cv; s1,s2, rrr resp; clear abd; soft, nt, bs+ ext; no edema. Laboratory Tests 10/07 0720 Chemistry Sodium (137 - 145 mmol/L) 142 Potassium (3.5 - 5.1 mmol/L) 4.1 Chloride (98 - 107 mmol/L) 101 Carbon Dioxide (22 - 30 mmol/L) 26 Anion Gap (5 - 16) 15 BUN (7 - 17 mg/dL) 12 Creatinine (0.5 - 1.0 mg/dL) 0.8 Estimated GFR (>60 ml/min) > 60 BUN/Creatinine Ratio (7 - 25 %) 15.0 Hematology CBC w Diff MAN DIFF ORDERED WBC (4.8 - 10.8 /CUMM) 20.1 H RBC (4.20 - 5.40 /CUMM) 3.90 L Hgb (12.0 - 16.0 G/DL) 12.8 Hct (37 - 47 %) 38.4 MCV (81.0 - 99.0 FL) 98.4 MCH (27.0 - 31.0 PG) 32.7 H RDW (11.5 - 14.5 %) 16.3 H Plt Count (130 - 400 /CUMM) 196 MPV (7.4 - 10.4 FL) 10.0 Gran % (42.2 - 75.2 %) 86.6 H Lymphocytes % (20.5 - 51.1 %) 4.8 L Monocytes % (1.7 - 9.3 %) 8.2 Eosinophils % (0 - 5 %) 0.2 Basophils % (0.0 - 2.0 %) 0.2 Absolute Granulocytes (1.4 - 6.5 /CUMM) 17.4 H Segmented Neutrophils (42.2 - 75.2 %) 85 H Absolute Lymphocytes (1.2 - 3.4 /CUMM) 1.0 L Lymphocytes (20.5 - 51.1 %) 5 L Monocytes (1.7 - 9.3 %) 10 H Absolute Monocytes (0.10 - 0.60 /CUMM) 1.6 H Absolute Eosinophils (0.0 - 0.7 /CUMM) 0 Absolute Basophils (0.0 - 0.2 /CUMM) 0 Platelet Estimate (ADEQUATE) VERIFIED BY SMEAR Normocytic RBCs VERIFIED Normochromic RBCs VERIFIED PUBS MCHC (33.0 - 37.0 G/DL) 33.3 A/P; 77-year-old female with past history significant for coronary artery disease status post and STEMI, hyperlipidemia, Crohn's disease on mesalamine. , Small vessel vasculitis with SLE on methotrexate and steroids, COPD, spondylolysis, diverticulosis, osteoarthritis arthritis, depression, KUSH on CPAP admitted with the lower back pain. Status post epidural injection and vertebroplasty. Patient still requiring IV narcotics. We'll check lumbosacral spine MRI today as discussed with Dr. Huynh yesterday. If that's negative, will switch patient to oral Dilaudid and monitor the response. Continue the rest of the medications. Aspirin still on hold pending results of MRI. Disposition will depend on the results of MRI and adequate pain control on oral narcotics.
[2017-10-07 08:51] LABS: ABSOLUTE BASOPHIL COUNT 0 /CUMM (0.0-0.2); ABSOLUTE EOSINOPHIL COUNT 0 /CUMM (0.0-0.7); ABSOLUTE GRANULOCYTE CT 17.4 /CUMM (1.4-6.5); ABSOLUTE MONOCYTE COUNT 1.6 /CUMM (0.10-0.60); BASOPHIL % 0.2 % (0.0-2.0); EOSINOPHIL % 0.2 % (0-5); GRANULOCYTE % 86.6 % (42.2-75.2); HEMATOCRIT 38.4 % (37-47); MEAN CORPUSCULAR HGB 32.7 PG (27.0-31.0); MEAN CORPUSCULAR HGB CONC 33.3 G/DL (33.0-37.0); MEAN CORPUSCULAR VOLUME 98.4 FL (81.0-99.0); PLATELET COUNT 196 /CUMM (130-400); RBC DISTRIBUTION WIDTH 16.3 % (11.5-14.5); WHITE BLOOD CELL COUNT 20.1 /CUMM (4.8-10.8)
--- NOTE | 2017-10-07 13:47 | MRI REPORT ---
EXAMINATION: MR LUMBAR SPINE WITHOUT CONTRAST CLINICAL INFORMATION: Back pain status post kyphoplasty. COMPARISON: Lumbar spine MRI 09/28/2017. TECHNIQUE: MRI of the lumbar spine was obtained using routine sequences without contrast. FINDINGS: There is redemonstration of mild acute to subacute compression fracture at T10 with approximately 10% vertebral body height loss anteriorly and stable compared to prior. The previously seen L3 vertebral body compression fracture is now status post vertebral body augmentation with expected postoperative changes. There is approximately 40% vertebral body height loss which is stable compared to prior with no new vertebral body height loss seen. Edema within the posterior elements of L3 also remains unchanged. No new compression fracture is seen. The alignment is stable again noting grade 2 anterolisthesis of L4 on L5 related to advanced degenerative facet arthropathy. The distal spinal cord appears normal. The conus medullaris terminates normally at the L1-L2 level. There is redemonstration of advanced multilevel degenerative spondylotic changes throughout the lumbar spine with disc bulges, herniation, ligamentum flavum infolding, and facet arthropathy in a background of epidural lipomatosis with resulting spinal canal and neural foraminal stenosis. These findings are fully detailed in the prior lumbar spine MRI 09/28/2017 and are unchanged. Largely due to epidural lipomatosis there is mass effect on the thecal sac and effacement of intrathecal CSF at L2-L3 and L3-L4. There is moderate spinal canal stenosis at L4-L5 and mass effect on the bilateral foraminal L4 nerve roots. There is mild paraspinal edema and edema within the subcutaneous fat. No paraspinal fluid collection is seen. There is evidence of right nephrectomy. There is mild psoas muscle edema. Sigmoid diverticulosis is incidentally noted. IMPRESSION: 1. No acute compression fracture or new spinal canal or neural foraminal stenosis. 2. Expected postoperative findings related to vertebral body augmentation at L3 with no further height loss. Stable mild compression fracture at T10. 3. Redemonstration of advanced multilevel spondylotic changes in the lumbar spine which are superimposed on epidural lipomatosis with resulting effacement of intrathecal CSF and severe spinal canal stenosis at L2-L3 and L3-L4 and moderate spinal canal stenosis at L4-L5. The degenerative changes are stable since 09/28/2017.
[2017-10-07 15:31] VITALS: BP 132/70
[2017-10-07 22:58] VITALS: BP 117/71
[2017-10-08 07:27] VITALS: BP 118/71
--- NOTE | 2017-10-08 07:33 | PN- Housestaff ---
Elliot Beebe 10/08/17 0733: Subjective Follow-up For: Compression fracture status post kyphoplasty Subjective: patient was seen and examined this morning. she is alert awake and oriented to time place and person. No acute events noticed. Patient continues to report low back pain 5 out of 10 pain this morning. She is getting Dilaudid 1 mg every 4 hours. Switching to oral dilaudid 4 mg every 4hrs. Denies any weakness, sensory changes, gait changes. No bladder or bowel incontinence. Vitals were stable. Requestning for home medication Fioricet for headache Review of Systems Constitutional: Reports: see HPI. Objective Last 24 Hrs of Vital Signs/I&O Vital Signs Date Time Temp Pulse Resp B/P B/P Pulse O2 O2 Flow FiO2 Mean Ox Delivery Rate 10/08 0928 90 138/80 10/08 0727 98.3 94 20 118/71 93 Room Air 10/07 2258 99.2 88 20 117/71 94 Room Air 10/07 1531 98.1 68 20 132/70 94 Room Air Intake & Output 10/08 1600 10/08 0800 10/08 0000 Intake Total 720 480 250 Output Total Balance 720 480 250 Intake, IV 0 10 Intake, Oral 720 480 240 Number 0 0 Bowel Movements Physical Exam General Appearance: Alert, Oriented X3, Cooperative, No Acute Distress Other Physical Findings: Skin: No Rashes Skin Temp/Moisture Exam: Warm/Dry HEENT: Atraumatic, PERRLA, EOMI, Mucous Membr. moist/pink Neck: Supple Cardiovascular: Regular Rate, Normal S1, Normal S2, No Murmurs Lungs: Clear to Auscultation, Normal Air Movement Abdomen: Normal Bowel Sounds, Soft, No Tenderness Neurological: Normal Speech, Strength at 5/5 X4 Ext, Normal Tone, Sensation Intact, Cranial Nerves 3-12 NL, Reflexes 2+ Extremities: No Clubbing, No Cyanosis, No Edema, Normal Pulses Current Medications: Current Medications Sig/Cherry Start time Last Medication Dose Route Stop Time Status Admin Acetaminophen 325 MG Q8P PRN 10/07 2115 AC PO Acetaminophen 1,000 MG TID 10/05 2215 DC 10/07 IV 1656 Acetaminophen 650 MG Q6P PRN 09/27 2215 AC 10/08 PO 0820 Acetaminophen/ 1 TAB Q4P PRN 10/08 1030 AC 10/08 Butalbital/Caffeine PO 1205 Albuterol Sulfate 2 PUF Q4-6 PRN PRN 09/27 2345 AC INH Aspirin 81 MG DAILY 10/08 1345 AC PO Benzocaine/Menthol 1 DOMENIC Q2P PRN 10/06 1515 AC 10/07 PO 0951 Buprenorphine 1 PATCH Q168 10/04 1215 AC 10/04 TD 1237 Buspirone HCl 7.5 MG BID PRN 09/27 2356 AC PO Cyclobenzaprine HCl 5 MG BID PRN 10/08 1030 AC 10/08 PO 1205 Diphenhydramine HCl 25 MG Q6P PRN 10/01 1700 AC 10/03 PO 1707 Docusate Sodium 100 MG DAILY 10/01 1534 AC 10/08 PO 0928 Duloxetine HCl 60 MG AT BEDTIME 09/28 0045 AC 10/07 PO 2241 Famotidine 20 MG ONCE PRN 10/01 1700 AC 10/03 PO 0605 Ferrous Sulfate 325 MG DAILY 10/01 1000 AC 10/08 PO 0928 Hydromorphone HCl 4 MG Q4P PRN 10/08 0930 AC 10/08 PO 1421 Hydromorphone HCl 2 MG Q4P PRN 10/07 1415 DC 10/08 PO 0541 Hyoscyamine 0.125 MG TID PRN 09/28 1915 AC SL Lactobacillus 1 CAP BID 09/28 1000 AC 10/08 Acidophilus PO 0928 Mesalamine 800 MG TID 09/28 0030 AC 10/08 PO 0928 Methotrexate 7.5 MG BID 10/08 1145 AC 10/08 PO 10/08 2201 1307 Metoprolol Tartrate 50 MG DAILY 09/28 1000 AC 10/08 PO 0928 Nicotinic Acid 500 MG 1700 09/30 1700 AC 10/07 PO 1656 Omeprazole 20 MG DAILY AC 09/28 0700 AC 10/08 PO 0541 Polycarbophil 1,250 MG DAILY 09/28 1909 AC 10/08 PO 0928 Prednisone 5 MG DAILY 09/28 1000 AC 10/08 PO 0928 Ropinirole HCl 4 MG QPM 09/28 2200 AC 10/07 PO 2242 Last 24 Hrs of Lab/Marco Results Last 24 Hrs of Labs/Mics: Laboratory Tests 10/08/17 0715: CBC w Diff MAN DIFF ORDERED, RBC 4.19 L, MCV 97.8, MCH 32.5 H, RDW 16.5 H, MPV 10.4, Gran % 83.2 H, Lymphocytes % 6.0 L, Monocytes % 10.4 H, Eosinophils % 0, Basophils % 0.4, Absolute Granulocytes 17.4 H, Segmented Neutrophils 84 H , Absolute Lymphocytes 1.2, Lymphocytes 7 L, Monocytes 9, Absolute Monocytes 2.2 H, Absolute Eosinophils 0, Absolute Basophils 0.1, Platelet Estimate VERIFIED BY SMEAR, Normocytic RBCs VERIFIED, Normochromic RBCs VERIFIED, PUBS MCHC 33.2 Assessment/Plan Assessment: Patient is 77 year-old female with PMH of CAD S/P NTEMI 2 yeas ago, HLD, Crohn's disease on mesalamine (on remission, last exacerbation long time ago), 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 Sevilla), COPD, spondylolysis, diverticulosis, osteoarthritis, depression, KUSH on CPAP, right nephrocystectomy, recent history of colonoscopy on September 23, history of diarrhea and lower abdominal pain since then. Patient main complaints are lower abdominal pain and lower back pain. Plan #Colitis -Resolved -GI consultation was obtained, thanks for recommendation. No recommendation for farther management or investigation since patient symptoms improved abdominal pain and no diarrhea, tolerating oral intake well. -Antispasmodic Hyoscyamine 0/125 mg -Fibercon and probiotics -C. difficile negative #Intractable low back pain -MRI lumbar spine revealed acute compression fracture of T10 and L3 with evidence of canal stenosis (Severe canal stenosis at L3-L4. Moderate canal stenosis at L1-L2, L2-L3, and L4-L5. There is moderate compression of the foraminal segment of the left L4 nerve root related to multifactorial degenerative changes at L4-L5.) -Neurosurgery consultation was obtained, thanks for recommendation. Images were reviewed, no any acute neurosurgical emergency. Recommendation to continue follow-up with Dr. Alex Eli for her chronic back pain, and may be seen by Dr. Sher at [facility] if any neurosurgical intervention is needed in the future -Due to significant pain, she underwent fluoroscopic-guided lumbar epidural steroid injection on Thursday10/02/17. Patient has some relief and was continuing on by mouth Dilauded 4mg every 4 when necessary -For definitive treatment, patient underwent vertebroplasty on 10/05/17 for L3. Patient reported severe pain afterwards that required IV dialudid, IR specialist Dr. Huynh evaluated her, recommendation to continue pain medication and if pain persists will obtain MRI of lumbar spine in a.m. -MRI lumbar spine 10/07/2016-no acute compression fracture or new spinal canal stenosis. Expected postop findings. Degenerative changes are stable. -Discharging on oral diluted 4 mg every 6 hours and advised to follow-up with PCP. #Hives -Patient had multiple episodes of widespread hives, no report for shortness of breath or chest pain. All of the episodes improved with Benadryl. Source is unknown. #Leukocytosis Given that patient is immunocompromised with methotrexate and chronic prednisone use 5 mg, close follow up of white blood cell was maintained to rule out any hidden infection. Leukocytosis with peak 20 no bandemia. Cultures remain negative, and patient is asymptomatic. DVT prophylaxis ALPS Code full Diet regular/high fiber diet Problem List: 1. Compression fracture Pain Ratin Pain Location: back pain Pain Goal: Remain pain free Pain Plan: Tylenol, Dilantin, oxycodone Tomorrow's Labs & Rationales: none Jay HUFF,Kendy 10/08/17 1337: Attending MD Review Statement Attending Statement Attending MD Statement: examined this patient, discuss w/resident/PA/AIR POLLUTION ENGINEER, agreed w/resident/PA/AIR POLLUTION ENGINEER, discussed with family, reviewed EMR data (avail), discussed with nursing, discussed with case mgmt, reviewed images, amended to note Attending Assessment/Plan: Patient seen and examined, did have mild pain this morning. She was kept on oral Dilaudid that was helping. Her MRI lumbar spine yesterday did not show any further acute fractures. We added some Flexeril this morning to help her with pain. Patient was also complaining of some headache and wanted her Fioricet. We will also resume back to the aspirin. Patient has been working with physical therapy and she will be discharged later today with home services. She does have leukocytosis of unknown significance. She always have leukocytosis up to some degree in the past. Will continue the rest of her home meds. D/W patient's daughter at bedside.
[2017-10-08 08:11] LABS: ABSOLUTE BASOPHIL COUNT 0.1 /CUMM (0.0-0.2); ABSOLUTE EOSINOPHIL COUNT 0 /CUMM (0.0-0.7); ABSOLUTE GRANULOCYTE CT 17.4 /CUMM (1.4-6.5); ABSOLUTE LYMPH COUNT 1.2 /CUMM (1.2-3.4); ABSOLUTE MONOCYTE COUNT 2.2 /CUMM (0.10-0.60); BASOPHIL % 0.4 % (0.0-2.0); EOSINOPHIL % 0 % (0-5); GRANULOCYTE % 83.2 % (42.2-75.2); MEAN CORPUSCULAR HGB 32.5 PG (27.0-31.0); MEAN CORPUSCULAR HGB CONC 33.2 G/DL (33.0-37.0); MEAN CORPUSCULAR VOLUME 97.8 FL (81.0-99.0); MEAN PLATELET VOLUME 10.4 FL (7.4-10.4); PLATELET COUNT 207 /CUMM (130-400); RBC DISTRIBUTION WIDTH 16.5 % (11.5-14.5); RED BLOOD CELL CT 4.19 /CUMM (4.20-5.40); WHITE BLOOD CELL COUNT 20.9 /CUMM (4.8-10.8)
[2017-10-08] MEDS ORDERED: TYLENOL325 M1 PO ×2 (09:32→13:37)
[2017-10-08] MEDS ORDERED: CHLORASEPTIC S1 EACH PO ×2 (09:32→13:37)
[2017-10-08] MEDS ORDERED: DILAUDID4 M1 PO ×2 (09:39→13:37)
[2017-10-08] MEDS ORDERED: CYCLOBENZAPRINE5 M2 PO (13:37)
[2017-10-08] MEDS ORDERED: LEVSIN0.125 M1 PO (13:37)
[2017-10-08] MEDS ORDERED: OXYCODONE HCL5 M1 PO (13:37)
[2017-10-08] MEDS ORDERED: FIBERCON625 M1 PO (13:37)
[2017-10-08 14:25] VITALS: BP 100/64
== END 2017-10-08 15:35 | disposition home health service (06) | DRG 516 ==
LOC: ERH 19:36 → ERHI 21:48 → 2NB 09-28 15:08 → ENRESERV 09-28 18:16 → ENTRNSPT 09-28 19:31 → CMPTRNSPT 09-28 20:00 → 2NB 09-28 20:06 → ENTRNSPT 10-08 15:27 → EDTRNSPTSTS 10-08 15:28 → 2NB 10-08 15:35 → CMPTRNSPT 10-08 15:41
PROVIDERS: Hospitalist; Internal Medicine; Internal Medicine Hematology & Oncology; Pediatrics; Student in an Organized Health Care Education/Training Program
PROC: 3E0R33Z Introduction of Anti-inflammatory into Spinal Canal, Percutaneous Approach (ICD-10-PCS; principal; 2017-10-02)
PROC: 3E0R3BZ Introduction of Anesthetic Agent into Spinal Canal, Percutaneous Approach (ICD-10-PCS; 2017-10-02)
PROC: 0QS03ZZ Reposition Lumbar Vertebra, Percutaneous Approach (ICD-10-PCS; 2017-10-05)
PROC: 0QU03JZ Supplement Lumbar Vertebra with Synthetic Substitute, Percutaneous Approach (ICD-10-PCS; 2017-10-05)
DX: M48.54XA Collapsed vertebra, not elsewhere classified, thoracic region, initial encounter for fracture (principal); K50.90 Crohn's disease, unspecified, without complications; M32.9 Systemic lupus erythematosus, unspecified; K57.30 Diverticulosis of large intestine without perforation or abscess without bleeding; M48.56XA Collapsed vertebra, not elsewhere classified, lumbar region, initial encounter for fracture; G47.33 Obstructive sleep apnea (adult) (pediatric); E66.9 Obesity, unspecified; Z68.35 Body mass index [BMI] 35.0-35.9, adult; M43.16 Spondylolisthesis, lumbar region; J44.9 Chronic obstructive pulmonary disease, unspecified; D72.829 Elevated white blood cell count, unspecified; I25.10 Atherosclerotic heart disease of native coronary artery without angina pectoris; I25.2 Old myocardial infarction; I10 Essential (primary) hypertension; E78.5 Hyperlipidemia, unspecified; K21.9 Gastro-esophageal reflux disease without esophagitis; F41.9 Anxiety disorder, unspecified; F32.9 Major depressive disorder, single episode, unspecified
CPT/HCPCS: 04007; 2NBSP; 72148; 72149; 73721; 36415; 71046; 72158; 74176; 81003; 82436; 87040; 87045; 87086; 93005; 93010; 96365; 96366; 96375; 97110-GO; 97116-GO; 97161-GP; 97530-GO; A9579; J0131; J0696; J1030; J1170; J1200; J1644; J1650; J2270; J3490; J7512; J8610

== ENCOUNTER → 2018-02-17 | Day surgery (SDC) | payer OTHER, MEDICARE ==
[~2018-02-17] VITALS: Ht 157.5 cm; Wt 80.7 kg
[~2018-02-17] MED LIST changes: +AMOXICILLIN500 M3 PO; +BENEFIBER152 GM PO; +CHLORASEPTIC S1 EACH PO; +CLARITIN10 M1 PO; +CYCLOBENZAPRINE5 M2 PO; +DILAUDID2 M1 PO; +DILAUDID4 M1 PO; +FIBERCON625 M1 PO; +LASIX20 M1 PO; +LEVSIN0.125 M1 PO; +RECLAST 55 MG/100 M; +TYLENOL325 M1 PO; +ULTRAM50 M1 PO
--- NOTE | 2018-02-17 08:52 | Operative Report ---
Operative/Inv Procedure Report Surgery Date: 02/17/18 Name of Procedure: Open repair of Umbilical hernia with mesh Pre-Operative Diagnosis: Umbilical hernia Post-Operative Diagnosis: Same Estimated Blood Loss: none Surgeon/Supervisor Electronic Testing: Orlando Jerry MD Anesthesia: moderate sedation (0.5% Marcaine local ) Specimens: None Complications: None Operative/Procedure Note Note: The patient was placed on the OR table in the supine position. After a surgical time out was taken the kacy umbilical area was prepped and draped in the usual sterile manner. After suitable IV sedation was obtained local anesthesia was infiltrated into the area. An infra umbilical incision was made and carried into the subcutaneous tissue. Hemostasis was maintained with the cautery device. The base of the umbilcus was entered during sharp dissection. This area was closed with a 5-0 Vicryl suture. The hernia sac was isolated and dissected down to the fascial defect. The sac was fat containing. The sac was totally inverted back into the fascial defect. A large Mesh perfix plug was soaked in Bacitracin antiobiotic solution and introduced into the fascial defect. This oblierated the defect. The top edge of the mesh was sutured to the edge of the fascia with a running 0 Vicryl suture. No defects were palpated between the mesh and the fascia at the end of the procedure. The area was irrigated with Bacitracin antibiotic solution and suctioned dry. Hemostasis was noted to be good. The base of the umbilicus was sutured to fascia with a 3-0 Vicryl suture. The subcutaneous layer was closed with 3-0 Vicryl suture. The skin was closed with 5 -0 Vicryl subcuticular sutures. Steri strips and a sterile dressing was applied.The patient tolerated the procedure well and was taken to the recovery area with stable vital signs.
== END ==
LOC: STS 03:22
DX: K42.9 Umbilical hernia without obstruction or gangrene (principal); J44.9 Chronic obstructive pulmonary disease, unspecified; M32.9 Systemic lupus erythematosus, unspecified; I10 Essential (primary) hypertension; Z90.5 Acquired absence of kidney; K50.90 Crohn's disease, unspecified, without complications
CPT/HCPCS: C9399; J0131; J1100; J2250; J2405; J3490

== ENCOUNTER 2018-02-22 21:27 | Emergency (ER) | payer OTHER, MEDICARE ==
[~2018-02-22] VITALS: Ht 157.5 cm; Wt 80.7 kg
[2018-02-22 22:28] LABS: ABSOLUTE BASOPHIL COUNT 0.1 /CUMM (0.0-0.2); ABSOLUTE EOSINOPHIL COUNT 0 /CUMM (0.0-0.7); ABSOLUTE GRANULOCYTE CT 9.1 /CUMM (1.4-6.5); ABSOLUTE LYMPH COUNT 1.5 /CUMM (1.2-3.4); ABSOLUTE MONOCYTE COUNT 0.4 /CUMM (0.10-0.60); BASOPHIL % 0.7 % (0.0-2.0); EOSINOPHIL % 0 % (0-5); GRANULOCYTE % 82.1 % (42.2-75.2); MEAN CORPUSCULAR HGB 33.4 PG (27.0-31.0); MEAN CORPUSCULAR HGB CONC 33.7 G/DL (33.0-37.0); MEAN PLATELET VOLUME 9.6 FL (7.4-10.4); PLATELET COUNT 283 /CUMM (130-400); RBC DISTRIBUTION WIDTH 18.5 % (11.5-14.5); RED BLOOD CELL CT 3.84 /CUMM (4.20-5.40); WHITE BLOOD CELL COUNT 11.1 /CUMM (4.8-10.8)
[2018-02-22 22:37] LABS: PT 11.3 SEC (9.4-12.5); PTT 29 SEC (25-37)
--- NOTE | 2018-02-23 00:22 | ED AMS/SEIZURE/WEAK/DIZZY ---
History of Present Illness General Chief Complaint: General Adult Stated Complaint: WEAKNESS, GENERAL MALAISE Source: patient Exam Limitations: no limitations Vital Signs & Intake/Output Vital Signs & Intake/Output Vital Signs Date Time Temp Pulse Resp B/P B/P Pulse O2 O2 Flow FiO2 Mean Ox Delivery Rate 02/23 0106 56 20 127/62 97 Room Air 02/22 2138 97.1 56 111/71 94 ED Intake and Output 02/23 0000 02/22 1200 Intake Total Output Total Balance Patient 178 lb Weight Weight Reported by Patient Measurement Method Allergies Coded Allergies: Iodinated Contrast- Oral and IV Dye (Iodinated Contrast Media - IV Dye) ( Intermediate, CAT SCAN DYE RED, FLUSHING, FEELING HOT, RASH 02/16/18) lactose (LACTOSE INTOLERANT 02/16/18) Reconcile Medications Albuterol Sulfate (Proair Hfa) 90 MCG HFA.AER.AD 2 PUF INH 4XDAILY PRN COPD ( Reported) Amoxicillin 500 MG TABLET 4 CAP PO AD 1 HR PRIOR TO DENTAL APPT (Reported) Ascorbic Acid (Vitamin C) 1,000 MG TABLET 1 TAB PO DAILY SUPPLEMENT (Reported ) Aspirin (Ecotrin*) 81 MG TABLET.DR 1 TAB PO DAILY HEART/BLOOD (Reported) Aspirin/Acetaminophen/Caffeine (Excedrin Extra Strength Caplet) 250 MG-250 MG-65 MG TABLET 2 TAB PO PRN HEADACHE (Reported) Buspirone HCl 7.5 MG TABLET 1 TAB PO PRN ANXIETY (Reported) Butalb/Acetaminophen/Caffeine (Dotjibtp-Llwhhxnetmenj-Ytat Cp) 50 MG-325 MG-40 MG CAPSULE 1 TAB PO PRN MIGRAINES (Reported) Calcium Carbonate/Vitamin D3 (Calcium + Vitamin D Tablet) 600 MG-200 TABLET 1 TAB PO DAILY SUPPLEMENT (Reported) Cholecalciferol (Vitamin D3) (Vitamin D) 5,000 UNIT TABLET 2 TAB PO AD PRN supplement (Reported) Cyanocobalamin (Vitamin B-12) 1,000 MCG TABLET 1 TAB PO DAILY SUPPLEMENT ( Reported) Duloxetine HCl (Cymbalta) 60 MG CAPSULE.DR 1 CAP PO QHS DEPRESSION (Reported) Ferrous Sulfate (IRON) 325 MG (65 MG IRON) TABLET 1 TAB PO DAILY SUPPLEMENT ( Reported) Folic Acid 1 MG TABLET 1 TAB PO DAILY SUPPLEMENT (Reported) Furosemide (Lasix) 20 MG TABLET 1 TAB PO DAILY DIURETIC (Reported) Ketoconazole 2 % CREAM..G. 1 MCKINLEY TOP PRN UNDER BREAST/GROIN (Reported) apply to affected area(s) Krill Oil/Dexter-3/Dha/Epa (Cvs Dexter-3 Krill Oil 300 Sfgl) 300 MG-90 MG (27 MG- 45 MG) CAPSULE 1 TAB PO DAILY SUPPLEMENT (Reported) Loratadine (Claritin) 10 MG TABLET 1 TAB PO DAILY ALLERGIES (Reported) Mesalamine (Asacol Hd) 800 MG TABLET.DR 2 TAB PO TID CROHNS (Reported) Methotrexate 2.5 MG TABLET 6 TAB PO QTHURS LUPUS (Reported) Metoprolol Tartrate 50 MG TABLET 1 TAB PO DAILY HTN (Reported) Oxycodone HCl/Acetaminophen (Percocet 5-325 MG Tablet) 5 MG-325 MG TABLET 1-2 TAB PO Q4-6 PRN ABDOMINAL PAIN Prednisone 5 MG TABLET 1 TAB PO DAILY SLE (Reported) Rabeprazole Sodium 20 MG TABLET.DR 1 TAB PO BID ACID REFLUX (Reported) Ropinirole HCl (Requip) 4 MG TABLET 1 TAB PO QPM RLS (Reported) Tramadol HCl (Ultram) 50 MG TABLET 2 TAB PO PRN PAIN (Reported) Umeclidinium Brm/Vilanterol Tr (Anoro Ellipta 62.5-25 Mcg INH) 62.5 MCG-25 MCG/ ACTUATION BLST.W.DEV 1 PUFF INH DAILY SOB (Reported) Wheat Dextrin (Benefiber) (Unknown Strength) POWDER (Unknown Dose) PO DAILY SUPPLEMENT (Reported) Zoledronic Acid (Reclast 5 MG/100 Ml Solution) (Unknown Strength) INFUS..BTL ( Unknown Dose) Q365D OSTEOPOROSIS (Reported) Triage Note: PT PRESENTS TO THE ER WITH DAUGHTER. PT STATES THAT SHE FEELS VERY WEAK. PT STATES THAT SHE BM TODAY AND SHE NOTICED BLOOD IN THE STOOL. PT STARTED FEELING WEAK TODAY. PT HAD SURGERY HERNIA LAST WEEK. Triage Nurses Notes Reviewed? yes Onset: Gradual Duration: better Timing: recent history Severity: moderate Severity Numbers: 5 HPI: Patient is a 77-year-old female with an multiple medical comorbidities history however is status post 5 days of umbilical hernia repair with mesh performed by surgeon Dr. Jerry who presents emergency room that today she woke up from a nap this afternoon and felt significantly tired weak and fatigued Patient had a bowel movement and noted bright red blood however has a history of external hemorrhoids. Patient states that she is on pain medications for her abdominal pain and there surgery however denies any worsening pain today and has mild abdominal discomfort to the insertion site of the laparoscopic trocar. Denies any fever chills chest pain cough shortness of breath nausea vomiting dysuria hematuria vaginal bleeding or discharge Patient can tolerate by mouth with no change in symptoms Patient did eat breakfast lunch and dinner She states the symptoms began before dinner ate dinner and felt improved however is still "weak (Alli Ahumada) Past History Travel History Traveled to [place] past 21 day No Medical History Any Pertinent Medical History? see below for history Neurological: migraine, restless leg syndrome EENT: allergies, CATARACT REMOVAL BOTH EYE Cardiovascular: CAD, hypertension, hyperlipidemia, NSTEMI (2015) Respiratory: COPD, obstructive sleep apnea, CPAP Gastrointestinal: Crohn's disease, diverticulitis, GERD, lactose intolerance Hepatic: NONE Renal: nephrectomy (right for encapsulated RC Ca), urinary incontinence Musculoskeletal: chronic back pain, disk herniation, degen joint disease, osteoarthritis, SPONDYLOLISTHESIS BONE SPUR- R HEEL R KNEE TORN MENISCUS CHRONIC BACK PAIN SKIN LUPUS Psychiatric: anxiety, depression Endocrine: obesity, vitamin D deficiency Blood Disorders: possible lymphoprolif disorder Cancer(s): renal cancer MICROBIOLOGY TECHNICIAN/Reproductive: L oophrectomy ("benign") Other Medical Hx: DISCOID LUPUS History of MRSA: No History of VRE: No History of CDIFF: No Influenza Vaccine: 06/20/17 Surgical History Surgical History: appendectomy, cataract removal, knee replacement (left), right nephrectomy left oophorectomy TONSILLECTOMY HEMORRHOID REMOVAL bilateral shoulder replacements Psychosocial History Who do you live with Patient/Self Services at Home Home Health Aide, Nursing, Physical Therapy What is your primary language Ukrainian Tobacco Use: Quit >30 days ago Family History Family History, If Any: FATHER, , Age 65. FH: ALS (amyotrophic lateral sclerosis) MOTHER, , Age 88; Cause: CHF (congestive heart failure). FH: heart failure BROTHER FH: hypertension Hx Contributory? No (Alli Ahumada) Review of Systems Review of Systems Constitutional: Reports: see HPI, malaise, weakness. EENTM: Reports: no symptoms. Respiratory: Reports: no symptoms. Cardiovascular: Reports: no symptoms. GI: Reports: see HPI. Genitourinary: Reports: no symptoms. Musculoskeletal: Reports: no symptoms. Skin: Reports: no symptoms. Neurological/Psychological: Reports: no symptoms. Hematologic/Endocrine: Reports: see HPI, bleeding. Immunologic/Allergic: Reports: no symptoms. All Other Systems: Reviewed and Negative (Alli Ahumada) Physical Exam Physical Exam General Appearance: no apparent distress, alert, comfortable Head: atraumatic Eyes: Bilateral: normal appearance, PERRL. Ears, Nose, Throat: normal pharynx, normal ENT inspection Neck: normal inspection, supple Respiratory: normal breath sounds, chest non-tender, no respiratory distress Cardiovascular: regular rate/rhythm Gastrointestinal: NOTED PERIUMBILICAL WELL-HEALING POSTSURGICAL INCISION WITH INTACT sTERI-sTRIPS WITH MILD ECCHYMOSIS AND MILD ABDOMINAL PAIN NO PERITONEAL SIGNS NO REBOUND TENDERNESS Rectal: normal rectal tone, heme negative stool, NONBLEEDING, NONTHROMBOSED EXTERNAL HEMORRHOIDS Neurologic/Psych: no motor/sensory deficits, awake, alert, oriented x 3, normal gait Skin: intact, normal color, warm/dry Core Measures ACS in differential dx? No CVA/TIA Diagnosis No Sepsis Present: No Sepsis Focused Exam Completed? No (Alli Ahumada) Progress Differential Diagnosis: arrythmia, anemia, benign positional vertigo, CVA/stroke , dehydration, drug intoxication, encephalitis, electrolyte imbalance, GI bleed, hypoglycemia, hypoxia, intracranial Hem., intracranial mass/tumor, labrynthitis, meningitis, Meniere's disease, migraine HILLS, multiple sclerosis, pneumonia, postural hypotension, presyncope, post-traumatic vertigo, sepsis, seizure disorder, subarachnoid Hem., UTI/pyelo, vertebrobasilar insuff Plan of Care: Orders Procedure Date/time Status MISTAKE 02/23 0032 Active PARTIAL THROMBOPLASTIN TIME 02/23 2212 Complete PROTHROMBIN TIME 02/23 2212 Complete URINALYSIS 02/23 2132 Complete TROPONIN LEVEL 02/23 2132 Complete COMPREHENSIVE METABOLIC PANEL 02/23 2132 Complete CBC WITHOUT DIFFERENTIAL 02/23 2132 Complete EKG 02/23 2132 Active Current Medications Sig/Cherry Start time Last Medication Dose Stop Time Status Admin Sodium Chloride 1,000 ML BOLUS ONE 02/23 0100 AC 02/23 (Normal Saline 0.9%) 02/23 0259 0115 Laboratory Tests 02/22/18 2244: Urine Color YEL, Urine Clarity CLEAR, Urine pH 6.0, Ur Specific [place] 1.015, Urine Protein NEG, Urine Ketones TRACE H, Urine Nitrite NEG, Urine Bilirubin NEG, Urine Urobilinogen 1.0, Ur Leukocyte Esterase NEG, Ur Microscopic EXAM NOT REQUIRED, Urine Hemoglobin NEG, Urine Glucose NEG 02/22/18 2218: Anion Gap 9, Estimated GFR 54 L, BUN/Creatinine Ratio 16.0, Glucose 107 H, Calcium 8.9, Total Bilirubin 0.5, AST 22, ALT 39, Alkaline Phosphatase 66, Troponin I < 0.01, Total Protein 6.2 L, Albumin 3.7, Globulin 2.5, Albumin/ Globulin Ratio 1.5, PT 11.3, INR 1.04, APTT 29, CBC w Diff NO MAN DIFF REQ, RBC 3.84 L, MCV 99.0, MCH 33.4 H, MCHC 33.7, RDW 18.5 H, MPV 9.6, Gran % 82.1 H, Lymphocytes % 13.2 L, Monocytes % 4.0, Eosinophils % 0, Basophils % 0.7, Absolute Granulocytes 9.1 H, Absolute Lymphocytes 1.5, Absolute Monocytes 0.4, Absolute Eosinophils 0, Absolute Basophils 0.1 Patient currently is resting comfortable at bedside has appropriate postprocedural pain patient is complaining of vague symptoms of weakness and fatigue EKG and blood work were unremarkable patient feels as if she is dehydrated however is able tolerate by mouth prior to arrival. Patient will receive IV fluids and received orthostatic evaluation patient was able to ambulate with the assistance of the daughter who is present however she does use assistive device at home Discussed hand off with Dr. Solano Initial ED EKG: normal intervals, normal p-waves, normal QRS complex, 73 BPM,NSR Hand-Off Endorsed To: Orlando Solano MD Endorsed Time: 102 Pending: other (Alli Ahumada) Departure Departure Disposition: HOME OR SELF CARE Condition: Stable Clinical Impression Primary Impression: Weakness Referrals: Russell Mack MD (PCP/Family) Additional Instructions: As discussed if symptoms worsen or if YOU develop any new concerning symptom return to emergency room continue using the assist device such as a cane or walker for fall prevention. Follow-up with your surgeon as directed Departure Forms: Customer Survey General Discharge Information (Alli Ahumada) PA/VISUAL AND STOCK ASSOCIATE Co-Sign Statement Statement: ED Attending supervision documentation- [X] I saw and evaluated the patient. I have also reviewed all the pertinent lab results and diagnostic results. I agree with the findings and the plan of care as documented in the PA's/VISUAL AND STOCK ASSOCIATE's documentation. [X] I have reviewed the ED Record and agree with the PA's/VISUAL AND STOCK ASSOCIATE's documentation. [] Additions or exceptions (if any) to the PAs/VISUAL AND STOCK ASSOCIATE's note and plan are summarized below: [] (Russ HUFF,Orlando Sanchez)
[2018-02-23 02:26] VITALS: BP 122/62
== END 2018-02-23 02:26 ==
LOC: ERH 21:27
PROVIDERS: Emergency Medicine
DX: R53.1 Weakness (principal)
CPT/HCPCS: 81003; 93005; 93010; 96360